=== PATIENT | female | born 1975 | race Caucasian/White ===

== ENCOUNTER → 2023-09-11 | Outpatient (CLI) | payer MEDICAID, SELFPAY ==
[2023-09-11 15:23] LABS: Absolute Lymphocyte Count 1.58 X10^3/uL (0.83-4.51); Absolute Neutrophil Count 8.2 X10^3/uL (2.0-7.7); Basophil# 0.05 X10^3/uL; Basophil% 0.5 % (0-1); Eosinophil# 0.11 X10^3/uL; Eosinophils% 1.1 % (0-5); Hematocrit 42.7 % (37-47); Lymphocyte # 1.58 X10^3/ul (0.83-4.51); Lymphocyte % 15.1 % (19-41); Mean Corp Hgb Conc 32.8 g/dL (32-36); Mean Corpuscular Hgb 30.2 pg (27.0-32.0); Mean Platelet Vol. 10.5 fl (6.2-12.0); Monocyte% 4.8 % (0-10); NRBC Flagged by Analyzer 0 % (0-5); Neutrophil # 8.17 X10^3/uL (2.7-7.7); Neutrophil % 78.1 % (47-70); Platelet Count 281 K/mm3 (150-450); RBC Distribution Width CV 13.2 % (11.6-14.6); Red Blood Count 4.64 M/mm3 (4.2-5.4); White Blood Count 10.5 K/mm3 (4.4-11.0)
[2023-09-11 15:43] LABS: Hemoglobin A1c 5.6 % (3.8-5.6)
[2023-09-11 15:48] LABS: Microalbumin,Random Urine 7.1 mg/L (NO RANGE EST.); Microalbumin:Creatinine Ratio 5.1 mg/g CRE (<30 mg/g CRE)
[2023-09-11 15:48] LABS: ALB/GLOB Ratio 0.9 RATIO (0.9-2.4); AST(SGOT) 19 U/L (15-37); Alanine Aminotransfer ALT/SGPT 21 U/L (13-56); Albumin, Serum 3.4 g/dL (3.2-5.0); Alkaline Phosphatase 87 U/L (45-117); Anion Gap 3 (5-15); BUN 12 mg/dL (7-18); BUN/Creat Ratio 13.6 RATIO (10-20); Chloride 107 mmol/L (98-107); Cholesterol 175 mg/dL (200); Creatinine, Serum 0.88 mg/dL (0.55-1.02); EST Glomerular Filtration Rate 72 mL/min (>60); Est Glom Filt Rate - Afr Amer 87 mL/min (>60); Globulin 3.7 g/dL (2.2-4.2); Glucose 110 mg/dL (74-106); High Density Lipoprotein 39 mg/dL; Potassium 4.4 mmol/L (3.5-5.1); Protein, Total 7.1 g/dL (6.4-8.2); Sodium Level 138 mmol/L (136-145); Triglycerides 233 mg/dL; Very Low Density Lipoprotein 47 mg/dL (5-40)
== END | disposition home or self-care (01) ==
LOC: BIMLAB 12:01
PROVIDERS: PCP Internal Medicine; Referring Provider Internal Medicine; Visit Provider Internal Medicine
DX: E11.9 Type 2 diabetes mellitus without complications (principal)
CPT/HCPCS: 36415; 80053; 80061; 82043; 82570; 83036; 85025

== ENCOUNTER → 2023-10-10 | Outpatient (CLI) | payer MEDICAID, SELFPAY | END | disposition home or self-care (01) | LOC: MRI 10:13 | PROVIDERS: PCP Internal Medicine; Referring Provider Orthopaedic Surgery Orthopaedic Surgery of the Spine; Visit Provider Orthopaedic Surgery Orthopaedic Surgery of the Spine | DX: Z00.00 Encounter for general adult medical examination without abnormal findings (principal) ==

== ENCOUNTER → 2023-10-24 | Outpatient (CLI) | payer MEDICAID, SELFPAY ==
[2023-10-24 13:56] LABS: Amphetamine Urine VISTA POSITIVE (<1000 ng/mL); Barbiturate Urine VISTA NEGATIVE (< 200 ng/mL); Benzodiazepine Urine VISTA NEGATIVE (< 200 ng/mL); Cocaine Urine VISTA NEGATIVE (< 300 ng/mL); Ecstacy Urine VISTA POSITIVE (< 500 ng/mL); Methadone Urine VISTA NEGATIVE (< 300 ng/mL); PCP Urine VISTA NEGATIVE (< 25 ng/mL); THC Urine VISTA POSITIVE (< 50 ng/mL); Vista UDS pH Range 6
== END | disposition home or self-care (01) ==
LOC: LAB 12:20
PROVIDERS: PCP Internal Medicine; Referring Provider Anesthesiology; Visit Provider Anesthesiology
DX: F11.20 Opioid dependence, uncomplicated (principal)
CPT/HCPCS: 80307

== ENCOUNTER 2023-10-31 09:00 | Outpatient (RCR) | payer MEDICAID, SELFPAY ==
--- NOTE | 2023-09-29 11:07 | HP.PTEVAL_ITS ---
Patient's Visit Information Visit Information Visit Information: THONG NEFF is a 48 year old F referred to Physical Therapy by Dr. Riley Mobley MD with a diagnosis of LUMBAR RADICULOATHY. Date of Evaluation: 09/29/23 Physical Therapist: Prem Fisher, PT, Cert MDT, OCS Visit Plan Frequency: 2x /Week Duration: 4 Weeks Plan: PT INTERVENTIONS AQUATIC THERAPY DLS ,POSTURAL EX'S ,LE FLEXABILITY ,BLE STRENGTHENING AND ACTIVITY MODIFICATION Subjective Subjective: This 48 y/o female presents to physical therapy with lumbar radiculopathy. Patient has h/o lumbar surgery 2019 and cervical fusion 2018. Most recently developed right lumbar and radiates to buttock to hamstring. Described as ache shooting pain. Seen DR Mobley recommended PT ,pain management and MRI. Patient had x-rays showed DDD. Aggravating factors bending ,lifting ,sitting , standing extended periods ,walking. Alleviating sitting with ice in recliner. Denies paresthesia/tingling -. Coughing/sneezing + pain. Bowel/bladder -.Pain affects sleeping. Patient has had PT in past didn't helped but pool was the best. Seen chiropractor for mid back. Patient symptoms affects QOL and func tion and ADLS . Patient condition affects QOL and function. SOCAL: single VOCATION: disablity Pain Right Back: Pain Intensity (Out of 10): 7 Pain Intensity Range: 10 Right Lower Extremity: Pain Intensity (Out of 10): 4 Pain Intensity Range: 10 Objective Objective: POSTURE: mild forward posture rounded shoulders head forward PALAPTION: tender LS/SI NEURO: c/o paresthesia/tingling ,reflexes L3-4,L4-5,L5-S1 2/2 SYMMETRIES: align FLEXABILITY: hamstrings min tight MMT: quads/hams 4/5 ,hip flexion 4-/5 ,ankle 4/5 LUMBAR ROM: flexion mod loss pain ,extension severe loss ,side glides min loss Special Tests L/S Slump test left side: Negative L/S Slump test right side: Negative L/S Left Straight Leg Raise: Negative L/S Right Straight Leg Raise: Negative Balance/Special Test Scores Oswestry Low Back Score: 23 Goals Goal 1:: Patient to be I with Aquatic program for lumbar spine Goal Time Frame: 4-6 Weeks Goal 2:: Patient to demonstrate 50% improvement with improved function and less pain Goal Time Frame: 4-6 Weeks Goal 3:: Patient to improve lumbar ROM for function of recovery to put on shoes and ADLS Goal Time Frame: 4-6 Weeks Goal 4:: Patient to improve back oswestry by 5 points to improve QOL and function Goal Time Frame: 4-6 Weeks Goal 5:: Patient be able to perform ADLS and housework tasks at home with min limitations Goal Time Frame: 4-6 Weeks Rehabilitation Potential Physical Therapy Diagnosis: This patient has lumbar pain with h/o surgery with possible foraminal stenosis vs disc with pain with motion testing and positioning , walking/standing affects ADLS and housework tasks thus benefit from skilled PT Rehabilitation Potential: Good Anticipated Interventions Patient/Client Instruction: Educate patient on: Condition and Plan of Care For the Purpose of:: To decrease pain, To increase ROM, To increase oxygenation perfusion, To improve ability to perform ADL's, To increase tolerance to activity/condition/position, To improve ability of physical actions for home/community/work/leisure, To improve health of tissue, To decrease soft tissue restriction, To increase flexibility/ROM, To reduce risk of recurrence and To prevent re-injury Therapeutic Exercise to Include: Strength training, Body mechanics, Postural training, Flexibilty training, In an aquatic setting and Dynamic Lumbar Stabilization For the Purpose of:: To decrease pain, To increase ROM, To improve muscle performance and motor function, To increase tolerance to activity/condition/position, To decrease level of supervision to perform tasks, To improve health of tissue, To decrease soft tissue restriction, To increase flexibility/ROM and To prevent re-injury Text: Thank you for the opportunity to evaluate your patient. For Medicare and Medicare HMO plans, please review the plan of care and approve it. It will need to be FAXED BACK to us at [phone] for Medicare purposes. For Medicare only, by signing this I certify the plan of care. Please let me know if there are questions or concerns regarding this plan of care. Physician Signatu re: Date:
--- NOTE | 2023-10-10 10:19 | MRI_ITS ---
EXAM: MR LUMBAR SPINE WITHOUT INTRAVENOUS CONTRAST CLINICAL INDICATION: pain TECHNIQUE: Multiplanar and multisequence MR images of the lumbar spine without intravenous contrast. COMPARISON: Lumbar radiographs 09/21/2023 FINDINGS: VERTEBRAE: Alignment of the lumbar vertebral bodies is normal. Normal vertebral body height. No bone marrow edema. Surgical fixation of the dorsal spinous processes of L3 and L4. SPINAL CORD: Normal. Normal position and signal intensity of the conus medullaris. SOFT TISSUES: Normal. DISCS/SPINAL CANAL/NEURAL FORAMINA: L1-L2: Normal. Normal disc height and morphology. Normal spinal canal and lateral recesses. Normal neuroforamina. L2-L3: Normal. Normal disc height and morphology. Normal spinal canal and lateral recesses. Normal neuroforamina. L3-L4: Moderate disc space narrowing and desiccation. Left central disc herniation causes mild spinal stenosis and mild narrowing of the right lateral recess. Intact neural foramina. L4-L5: Prominent disc space loss. Broad-based disc protrusion and facet arthropathy noted without significant narrowing of the spinal canal or neural foramina. L5-S1: Moderate disc space narrowing. Broad-based disc protrusion and facet arthropathy result in mild narrowing of the neural foramina bilaterally. No spinal stenosis. MRI/Spine Lumbar (Routine) IMPRESSION: 1. Disc degeneration at L3-4, L4-5 and L5-S1. 2. Mild L3-4 spinal and right lateral recess stenosis. 3. L5-S1 neural foraminal narrowing. Electronically Signed: Nj Prasad MD at 12:24 EDT ,
--- NOTE | 2024-01-05 13:28 | HP.PTDCSUM ---
Discharge Summary D/C summary: It has been my pleasure to treat THONG NEFF referred by Dr. Riley Mobley MD, with the diagnosis of LUMBAR RADICULOATHY for a total of 10 visit(s). Discharge Date: Please see the following information for a summary of their discharge status. Subjective Subjective: Patient has MRI showed L3-L4: Moderate disc space narrowing and desiccation. Left central disc herniation causes mild spinal stenosis and mild narrowing of the right lateral recess. Intact neural foramina. L4-L5: Prominent disc space loss. Broad-based disc protrusion and facet arthropathy noted without significant narrowing of the spinal canal or neural foramina.L5-S1: Moderate disc space narrowing. Broad-based disc protrusion and facet arthropathy result in mild narrowing of the neural foramina bilaterally. No spinal stenosis. Plan for epidural injections Pain Right Back: Pain Intensity (Out of 10): 6 Right Lower Extremity: Pain Intensity (Out of 10): 6 Left Back: Pain Intensity (Out of 10): 6 Overall Improvement % Improvement: 10 Objective Objective/Function: OSTURE: mild forward posture rounded shoulders head forward PALAPTION: tender LS/SI NEURO: c/o paresthesia/tingling ,reflexes L3-4,L4-5,L5-S1 2/2 SYMMETRIES: align FLEXABILITY: hamstrings min tight MMT: quads/hams 4/5 ,hip flexion 4-/5 ,ankle 4/5 LUMBAR ROM: flexion mod loss pain ,extension MOD loss ,side glides min loss Goals Goal 1:: Patient to be I with Aquatic program for lumbar spine Goal 2:: Patient to demonstrate 50% improvement with improved function and less pain Goal 3:: Patient to improve lumbar ROM for function of recovery to put on shoes and ADLS Goal 4:: Patient to improve back oswestry by 5 points to improve QOL and function Goal 5:: Patient be able to perform ADLS and housework tasks at home with min limitations Plan Plan: PLAN FOR EPIDURAL INJECTION D/C Information d/c sentence: If there are questions or concerns regarding this patient's physical therapy, please feel free to call me at [phone]. Thank you for the referral of this patient. Sincerely, Prem Fisher, PT, Cert MDT, OCS Balance/Gait/Functional tests Balance/Special Test Scores Oswestry Low Back Score: 23 Improvement % Improvement: 10
== END 2023-10-31 19:00 | disposition home or self-care (01) ==
LOC: PT 09:00
PROVIDERS: PCP Internal Medicine; Referring Provider Orthopaedic Surgery Orthopaedic Surgery of the Spine; Visit Provider Orthopaedic Surgery Orthopaedic Surgery of the Spine
DX: M54.16 Radiculopathy, lumbar region (principal)
CPT/HCPCS: 72148; 97113; 97162; 97530

== ENCOUNTER → 2023-12-06 | Outpatient (CLI) | payer MEDICAID, SELFPAY ==
--- NOTE | 2023-12-06 14:23 | NEURO_ITS ---
NCS and/or EMG Patient Report Ordering Doctor: Kevyn Merino DATE OF SERVICE: 12/06/23 Caridad presents for electrodiagnostic testing of the right upper limb. She reports numbness and tingling in the right hand. Electrodiagnostic findings: Right median motor nerve demonstrates prolonged latency with normal amplitude and conduction velocity. Right ulnar motor responses within normal limits, including conduction across the elbow. Prolonged right median sensory latency at the wrist. Normal ulnar and radial sensory responses. Needle EMG testing was performed in the right upper limb. All muscles tested, including cervical paraspinals, showed no evidence of denervation with normal motor unit action potentials. Electrodiagnostic impression: This is an abnormal study in the right upper limb 1. Electrodiagnostic findings suggestive of right-sided median mononeuropathy. This consistent with a mild right carpal tunnel syndrome. 2. There is no electrodiagnostic evidence for ulnar neuropathy, including cubital tunnel syndrome. 3. There is no electrodiagnostic evidence is noted for cervical radiculopathy Multi Select Codes Neurology Neurology Interp Codes: 86168-81 Musc test done w/n test comp (interp) and 959 10-26 Nrv cndj test 7-8 studies (interp)
--- NOTE | 2023-12-06 14:25 | RAD_ITS ---
EXAM: XR CERVICAL SPINE, 4 OR 5 VIEWS CLINICAL INDICATION: CERVICAL SPONDYLOSIS TECHNIQUE: Frontal, lateral and bilateral oblique views of the cervical spine. COMPARISON: No relevant prior studies available. FINDINGS: VERTEBRAE: Hardware from anterior fusion C5-6. Preserved vertebral body height. No acute fracture. No spondylolisthesis. Preservation of the normal cervical lordosis. No significant facet arthropathy. DISC SPACES: See above. SOFT TISSUES: Unremarkable. No prevertebral soft tissue widening. LUNG APICES: Clear. RAD/Cerv Spine 4 or 5 Views IMPRESSION: No acute osseous abnormalities of the cervical spine. There is an anterior fusion at C5-6. Electronically Signed: Hood Raya MD at 22:31 EDT ,
== END | disposition home or self-care (01) ==
PROVIDERS: PCP Internal Medicine; Referring Provider Anesthesiology; Visit Provider Anesthesiology
DX: G56.21 Lesion of ulnar nerve, right upper limb (principal); G56.01 Carpal tunnel syndrome, right upper limb
CPT/HCPCS: 72050; 95886; 95910

== ENCOUNTER 2024-02-13 02:49 | Emergency (ER) | payer MEDICAID, SELFPAY ==
[2024-02-13 02:53] VITALS: BP 119/72; PULSE 93; RESP 16; TEMP 37.3; O2SAT 95; BMI 29.0
--- NOTE | 2024-02-13 02:59 | EDS_ITS ---
HPI History of Present Illness Chief Complaint: Abscess Informant: patient Onset/Context/Timing Onset: Days (2) Context: Gradual Onset Timing: Continuous Quality: Burning Location: Right axilla Worsened by: Movement Relieved by: Warm compresses Narrative Narrative: Patient presents with abscess to her right axilla that has been getting worse over the last 2 days. Patient states it is gradually gotten worse. Patient states she noted a small pustule in her right axilla and she popped it. Patient states that since that time the redness and swelling has gotten worse. Patient states her pain has gotten progressively worse. Patient states her pain is worse with movement of her right arm. Patient states it gets better with warm compresses. Patient admits to a low-grade fever of 99 at home. Patient admits to some nausea but denies any vomiting. [facility] Medical History Bipolar disorder Carpal tunnel syndrome of right wrist Spinal stenosis Lumbar radiculopathy Type 2 diabetes mellitus Drug abuse IBS (irritable bowel syndrome) Tuberculosis Skin cancer Osteoarthritis H/O gastroesophageal reflux (GERD) Diabetes Breast lump Arthritis Anemia Chronic headaches Home Medications ?Medication ?Instructions ?Recorded ?Last Taken ?Type cholecalciferol (vitamin D3) 50 50 mcg PO DAILY 09/11/23 Unknown History mcg (2,000 unit) capsule cimetidine 300 mg tablet 300 mg PO BID 09/11/23 Unknown History clobetasol 0.05 % topical cream 1 applic topical DAILY 09/11/23 Unknown History clonazepam 1 mg tablet 1 mg PO 4X/DAY PRN anxiety 09/11/23 Unknown History flash glucose scanning reader 09/11/23 Unknown History (FreeStyle Emmanuel 14 Day [place]) hydroxyzine HCl 25 mg tablet 25 mg PO TID PRN itching 09/11/23 Unknown History lumateperone 21 mg capsule 21 mg PO DAILY 09/11/23 Unknown History (Caplyta) metformin 500 mg tablet 500 mg PO BID 09/11/23 Unknown History pregabalin 150 mg capsule 150 mg PO TID 09/11/23 Unknown History vortioxetine 20 mg tablet 20 mg PO QDAY 09/11/23 Unknown History (Trintellix) atorvastatin 10 mg tablet 10 mg PO QDAY #90 tabs 09/25/23 Unknown Rx cetirizine 10 mg capsule (All Day 10 mg PO DAILY PRN allergy 10/23/23 Unknown Rx Allergy (cetirizine)) symptoms #90 caps pantoprazole 40 mg tablet,delayed 40 mg PO QDAY #90 tabs 11/15/23 Unknown Rx release flash glucose sensor (FreeStyle #1 ea 11/16/23 Unknown Rx Emmanuel 2 Sensor kit) estradiol 1 mg tablet 1 mg PO QDAY #30 tabs 12/25/23 Unknown Rx docusate sodium 100 mg capsule 100 mg PO BID #60 caps 01/19/24 Unknown Rx arm brace (Wrist Brace) #2 ea 01/24/24 Unknown Rx amoxicillin 875 mg-potassium 875 mg PO Q12H #20 TABLETS 02/13/24 Unknown Rx clavulanate 125 mg tablet aripiprazole 5 mg tablet (Abilify) 5 mg PO DAILY 02/13/24 Unknown History Allergy/AdvReac Type Severity Reaction Status Date / Time No Known Allergies Allergy Verified 02/13/24 02:49 Surgical History Hx of lumbosacral spine surgery H/O: hysterectomy S/P cervical spinal fusion H/O adenoidectomy History of tonsillectomy Social History (Updated 02/13/24 @ 03:[address] Oumar Haynes DO) adopted: No household members: spouse number of children: 2 current occupational status: disabled pets and animals: Yes (3) pets and animals: cat(s) Smoking Status: Current every day smoker tobacco type: cigarettes Tobacco: How many years used: 45 quit status: has quit before alcohol intake: current alcohol intake frequency: a few times a month substance use type: marijuana and methamphetamine diet: other caffeine: Yes (5) Type: carbonated beverages frequency: does not exercise seatbelt use: always do you feel safe at home: Yes ROS ROS ED Constitutional Constitutional ED: Denies chills or fever(s) Eyes Eyes: Denies blurry vision or change in vision ENT ENT ED: Denies rhinorrhea or sore throat Cardiovascular Cardiovascular: Denies chest pain or palpitations Respiratory/Chest Respiratory/Chest: Denies cough or dyspnea Gastrointestinal Gastrointestinal: Reports nausea; Denies vomiting Genitourinary Genitourinary ED: Denies dysuria or hematuria Musculoskeletal Musculoskeletal: Reports back pain and neck pain Integumentary Reports abscess; Denies rash Neurologic Neurologic: Denies headache(s) or weakness Allergic/Immunologic Allergic/Immunologic ED: Denies mouth swelling or urticaria EXAM Physical Exam Const Vital Signs: 02/13/24 02:53 02/13/24 04:49 Temperature 99.2 F H Temperature Source Oral Pulse Rate 93 86 Respiratory Rate 16 16 Blood Pressure 119/72 106/64 Blood Pressure Mean 87 78 Pulse Ox 95 Oxygen Delivery Method Room Air Positive well nourished and well developed General Appearance ED: well developed and NAD HEENT Reports moist mucous membranes Neck supple and no JVD Neuro oriented x3, CN's II-XII intact bilaterally and no sensory deficits noted Sensorium / Orientation: alert Motor Exam: strength 5/5 throughout Psych mental status grossly normal Skin Skin Narrative: There is a abscess in the right axilla. There is mild fluctuance. There is significant surrounding cellulitis with warmth and erythema. There is no discharge or drainage noted. There is tenderness over the area. MDM MDM MDM Narrative Medical decision making narrative: Differential diagnosis includes abscess and cellulitis. CBC will be obtained to assess for leukocytosis and anemia. Basic metabolic profile will be obtained to assess for electrolyte abnormality and renal function. Lab Data Attestation: I reviewed the patient's lab results. Lab results narrative: CBC was reviewed. There is a leukocytosis of 17.8. The remainder is within normal limits. Basic metabolic profile was reviewed. Glucose was mildly elevated 173. Sodium was slightly low at 133. The remainder is within normal limits. Labs: Laboratory Results - last 24 hr 02/13/24 03:45 WBC 17.8 H RBC 4.38 Hgb 13.1 Hct 39.3 MCV 89.7 MCH 29.9 MCHC 33.3 RDW Std Deviation 43.1 RDW Coeff of Dali 13.1 Plt Count 270 MPV 9.1 Immature Gran % (Auto) 0.500 Neut % (Auto) 81.8 H Lymph % (Auto) 10.5 L Dare % (Auto) 6.0 Eos % (Auto) 0.8 Baso % (Auto) 0.4 Absolute Neuts (auto) 14.6 H Absolute Lymphs (auto) 1.87 Nucleated RBC % 0 Sodium 133 L Potassium 4.1 Chloride 100 Carbon Dioxide 29.0 Anion Gap 4 L BUN 8 Creatinine 0.79 Estim Creat Clear Calc 85.51 Est GFR (MDRD) Af Amer 99 Est GFR (MDRD) Non-Af 82 BUN/Creatinine Ratio 10.2 Glucose 173 H Calcium 9.2 Treatment and Re-Evaluation :: Smoking cessation was discussed. The patient was advised of the need for incision and drainage. Patient was agreeable with this. Patient was given a dose of Unasyn here in the emergency department. The area was cleaned with chlorhexidine prep. The area was anesthetized with 1% plain lidocaine locally. A small cruciate incision was made using an 11 blade scalpel. A moderate amount of purulent drainage was expressed. The wound was left open. Iodoform gauze was placed in the wound. Bacitracin dressing was applied. Patient tolerated the procedure well. Patient was instructed to use warm compresses. Patient was given a prescription for Augmentin. Patient was instructed to take Tylenol or ibuprofen as needed for pain. Patient was instructed to follow-up with her primary care physician in 5 to 7 days. Patient understood and was agreeable with the plan. All questions were answered. Discharge Plan Triage Chief Complaint: Abscess ED Provider: Oumar Haynes Dx/Rx/DC Orders Clinical Impression: Abscess of right axilla, Cellulitis of right axilla, Type 2 diabetes mellitus Instructions: ED Abscess Incision And Drainage, ED Cellulitis Prescriptions: New amoxicillin-pot clavulanate 875-125 mg tablet 875 mg PO Q12H Qty: 20 0RF No Action metformin 500 mg tablet 500 mg PO BID pregabalin 150 mg capsule 150 mg PO TID clonazepam 1 mg tablet 1 mg PO 4X/DAY PRN (Reason: anxiety) cimetidine 300 mg tablet 300 mg PO BID Trintellix 20 mg tablet 20 mg PO QDAY cholecalciferol (vitamin D3) 50 mcg (2,000 unit) capsule 50 mcg PO DAILY clobetasol 0.05 % cream 1 applic topical DAILY Caplyta 21 mg capsule 21 mg PO DAILY (DME) Rupali Benitez 14 Day [place] Misc See Rx Instructions .Route Rx Instructions: As directed hydroxyzine HCl 25 mg tablet 25 mg PO TID PRN (Reason: itching) pantoprazole 40 mg tablet,delayed release (DR/EC) 40 mg PO QDAY Qty: 90 2RF aripiprazole [Abilify] 5 mg tablet 5 mg PO DAILY atorvastatin 10 mg tablet 10 mg PO QDAY Qty: 90 1RF All Day Allergy (cetirizine) 10 mg capsule 10 mg PO DAILY PRN (Reason: allergy symptoms) Qty: 90 1RF (DME) FreeStyle Emmanuel 2 Sensor Kit See Rx Instructions .Route Qty: 1 6RF Rx Instructions: As directed estradiol 1 mg tablet 1 mg PO QDAY Qty: 30 1RF docusate sodium 100 mg capsule 100 mg PO BID Qty: 60 0RF (DME) Wrist Brace Misc See Rx Instructions .Route Qty: 2 2RF Rx Instructions: As directed Primary Care Provider: Yanira Souza Referrals: Yanira Souza MD [Primary Care Provider] - 3-5 Days Print Language: Slovenian Disposition Disposition: Home, Self Care
[2024-02-13 03:53] LABS: Absolute Lymphocyte Count 1.87 X10^3/uL (0.83-4.51); Absolute Neutrophil Count 14.6 X10^3/uL (2.0-7.7); Basophil# 0.07 X10^3/uL; Basophil% 0.4 % (0-1); Eosinophil# 0.15 X10^3/uL; Eosinophils% 0.8 % (0-5); Hematocrit 39.3 % (37-47); Hemoglobin 13.1 g/dL (12.0-15.0); Lymphocyte # 1.87 X10^3/ul (0.83-4.51); Lymphocyte % 10.5 % (19-41); Mean Corp Hgb Conc 33.3 g/dL (32-36); Mean Corpuscular Hgb 29.9 pg (27.0-32.0); Mean Corpuscular Volume 89.7 fL (81-99); Mean Platelet Vol. 9.1 fl (6.2-12.0); Monocyte# 1.07 X10^3/uL; NRBC Flagged by Analyzer 0 % (0-5); Neutrophil # 14.56 X10^3/uL (2.7-7.7); Neutrophil % 81.8 % (47-70); Platelet Count 270 K/mm3 (150-450); RBC Distribution Width CV 13.1 % (11.6-14.6); RBC Distribution Width SD 43.1 fl (35.1-43.9); Red Blood Count 4.38 M/mm3 (4.2-5.4); White Blood Count 17.8 K/mm3 (4.4-11.0)
[2024-02-13] MEDS: Lidocaine 1% (20 ml mdv) 20 ML Vial INFILT (03:59)
[2024-02-13] MEDS: Ondansetron 4 MG/2 ML Vial IV (04:00)
[2024-02-13] MEDS: Ampicillin/Sulbactam 3 GM in 0.9% Normal Saline (100mL MB+) 100 ML IV (04:01)
[2024-02-13] MEDS: Morphine 4 MG/ML Syringe IV (04:01)
[2024-02-13 04:08] LABS: Anion Gap 4 (5-15); BUN 8 mg/dL (7-18); BUN/Creat Ratio 10.2 RATIO (10-20); Calcium,Total 9.2 mg/dL (8.5-10.1); Chloride 100 mmol/L (98-107); Creatinine, Serum 0.79 mg/dL (0.55-1.02); EST Glomerular Filtration Rate 82 mL/min (>60); Est Glom Filt Rate - Afr Amer 99 mL/min (>60); Estimated Creatinine Clearance 85.51 ml/min; Glucose 173 mg/dL (74-106); Potassium 4.1 mmol/L (3.5-5.1); Sodium Level 133 mmol/L (136-145)
[2024-02-13] MEDS: LORazepam 2 MG/ML Syringe 0.5 MG IV (04:47)
[2024-02-13 04:49] VITALS: BP 106/64; PULSE 86; RESP 16
[2024-02-13 05:53] VITALS: BP 108/61; PULSE 82; RESP 18; TEMP 36.3; O2SAT 96
== END 2024-02-13 05:54 | disposition home or self-care (01) ==
PROVIDERS: Emergency Provider Emergency Medicine; PCP Internal Medicine; Visit Provider Emergency Medicine
DX: E11.9 Type 2 diabetes mellitus without complications (principal); L02.411 Cutaneous abscess of right axilla; F17.210 Nicotine dependence, cigarettes, uncomplicated; L03.111 Cellulitis of right axilla; Z79.899 Other long term (current) drug therapy
CPT/HCPCS: 10060; 80048; 85025; 96365; 96375; 99282; J7050; A4216; J0295; J2405

== ENCOUNTER → 2024-02-14 | Outpatient (CLI) | payer MEDICAID, SELFPAY | END | disposition home or self-care (01) | LOC: LABSPEC 15:12 | PROVIDERS: PCP Internal Medicine; Referring Provider Physician Assistant; Visit Provider Physician Assistant | DX: L02.411 Cutaneous abscess of right axilla (principal); L03.111 Cellulitis of right axilla | CPT/HCPCS: 87070; 87077; 87186; 87205 ==

== ENCOUNTER 2024-02-19 10:09 | Emergency (ER) | payer MEDICAID, SELFPAY ==
[2024-02-19 10:09] VITALS: BP 128/84; PULSE 67; RESP 16; TEMP 35.9; O2SAT 99; BMI 32.0
[2024-02-19 10:14] VITALS: BP 121/79; PULSE 61; PULSE 70; RESP 100; RESP 18; TEMP 36.8; O2SAT 100
--- NOTE | 2024-02-19 10:29 | ED.RN ---
Dr. Davis bedside
--- NOTE | 2024-02-19 10:34 | EX.ED.DYSGE1 ---
HPI History of Present Illness Chief Complaint: Abscess Informant: patient Narrative Narrative: 56-year-old female developed a tender swollen area/abscess in right axilla, she was seen here in ER about a week ago and had incision and drainage and was placed on Augmentin. It has not gotten better. She states she does not think it is necessarily worse. She has seen someone at urgent care and the wound center today, she was sent here. They are concerned it is either recurrent or incompletely drained. She only has 3 days left of the Augmentin. She denies systemic symptoms. She is a diabetic. She states it was continuing to drain until about 3 days ago when it closed up, she states that the wound center today they put a wick in the small wound. She did not have repeat incision and drainage. [facility] Medical History Bipolar disorder Carpal tunnel syndrome of right wrist Spinal stenosis Lumbar radiculopathy Type 2 diabetes mellitus Drug abuse IBS (irritable bowel syndrome) Tuberculosis Skin cancer Osteoarthritis H/O gastroesophageal reflux (GERD) Diabetes Breast lump Arthritis Anemia Chronic headaches Home Medications ?Medication ?Instructions ?Recorded ?Last Taken ?Type cholecalciferol (vitamin D3) 50 50 mcg PO DAILY 09/11/23 Unknown History mcg (2,000 unit) capsule clobetasol 0.05 % topical cream 1 applic topical DAILY 09/11/23 Unknown History clonazepam 1 mg tablet 1 mg PO 4X/DAY PRN anxiety 09/11/23 Unknown History flash glucose scanning reader 09/11/23 Unknown History (FreeStyle Emmanuel 14 Day [place]) hydroxyzine HCl 25 mg tablet 25 mg PO TID PRN itching 09/11/23 Unknown History lumateperone 21 mg capsule 21 mg PO DAILY 09/11/23 Unknown History (Caplyta) metformin 500 mg tablet 500 mg PO BID 09/11/23 Unknown History pregabalin 150 mg capsule 150 mg PO TID 09/11/23 Unknown History vortioxetine 20 mg tablet 20 mg PO QDAY 09/11/23 Unknown History (Trintellix) atorvastatin 10 mg tablet 10 mg PO QDAY #90 tabs 09/25/23 Unknown Rx cetirizine 10 mg capsule (All Day 10 mg PO DAILY PRN allergy 10/23/23 Unknown Rx Allergy (cetirizine)) symptoms #90 caps pantoprazole 40 mg tablet,delayed 40 mg PO QDAY #90 tabs 11/15/23 Unknown Rx release flash glucose sensor (FreeStyle #1 ea 11/16/23 Unknown Rx Emmanuel 2 Sensor kit) estradiol 1 mg tablet 1 mg PO QDAY #30 tabs 12/25/23 Unknown Rx docusate sodium 100 mg capsule 100 mg PO BID #60 caps 01/19/24 Unknown Rx arm brace (Wrist Brace) #2 ea 01/24/24 Unknown Rx aripiprazole 5 mg tablet (Abilify) 5 mg PO DAILY 02/13/24 Unknown History iodoform 1/4 X 5 yard bandage #12 ea 02/13/24 Unknown Rx amoxicillin 875 mg-potassium 1 tab PO Q12.TCU 02/19/24 Unknown History clavulanate 125 mg tablet bupropion HCl 100 mg tablet 100 mg PO BID 02/19/24 Unknown History bupropion HCl 150 mg tablet,12 hr 150 mg PO DAILY 02/19/24 Unknown History sustained-release bupropion HCl 300 mg 24 hr tablet, 300 mg PO DAILY 02/19/24 Unknown History extended release metformin 500 mg tablet 500 mg PO DAILY 02/19/24 Unknown History mirabegron 50 mg tablet,extended 100 mg PO DAILY 02/19/24 Unknown History release 24 hr (Myrbetriq) sulfamethoxazole 800 1 tab PO BID #20 TABLETS 02/19/24 Unknown Rx mg-trimethoprim 160 mg tablet Allergy/AdvReac Type Severity Reaction Status Date / Time No Known Allergies Allergy Verified 02/19/24 10:09 Surgical History Hx of lumbosacral spine surgery H/O: hysterectomy S/P cervical spinal fusion H/O adenoidectomy History of tonsillectomy Social History (Updated 02/13/24 @ 03:[address] Oumar Haynes, DO) adopted: No household members: spouse number of children: 2 current occupational status: disabled pets and animals: Yes (3) pets and animals: cat(s) Smoking Status: Current every day smoker tobacco type: cigarettes Tobacco: How many years used: 45 quit status: has quit before alcohol intake: current alcohol intake frequency: a few times a month substance use type: marijuana and methamphetamine diet: other caffeine: Yes (5) Type: carbonated beverages frequency: does not exercise seatbelt use: always do you feel safe at home: Yes ROS ROS ED Constitutional Constitutional ED: Denies chills or fever(s) Musculoskeletal Musculoskeletal: Reports other Details: Right axilla pain ; Denies neck pain Integumentary Reports abscess; Denies Abrasions, rash or wounds Neurologic Neurologic: Denies paresthesias or weakness EXAM Physical Exam Const Vital Signs: 02/19/24 10:09 02/19/24 10:14 02/19/24 10:14 Temperature 96.7 F L 98.3 F 98.3 F Temperature Source Temporal Oral Oral Pulse Rate 67 61 70 Respiratory Rate 16 18 100 H Blood Pressure 128/84 H 121/79 H 121/79 H Blood Pressure Mean 98 93 93 Pulse Ox 99 100 Oxygen Delivery Method Room Air Room Air Room Air 02/19/24 11:14 02/19/24 12:00 Temperature 98.3 F 98.0 F Temperature Source Oral Temporal Pulse Rate 61 67 Respiratory Rate 16 16 Blood Pressure 119/78 115/70 Blood Pressure Mean 91 85 Pulse Ox 97 95 Oxygen Delivery Method Room Air Room Air Positive well nourished and well developed General Appearance ED: well developed and NAD Neck full ROM and supple Back/Spine normal ROM and normal to inspection Extremity Extremity Narrative: In right axilla, there is erythema and a broad area, it is patchy, and nontender but there are 2 indurated areas that feel like a capsule/abscess both of which are tender, 1 is where there is a wick hanging out there is no active discharge, and the other is a little posterior to this. Neuro oriented x3, no focal motor deficits and no sensory deficits noted Sensorium / Orientation: alert Psych mental status grossly normal and thought process normal Skin no wounds Rashes: no rashes MDM MDM MDM Narrative Medical decision making narrative: As I advised the patient, I recommend repeat incision and drainage. As I advised, we could do a CT scan instead, seeing if she needs an I&D but I think she does, and it could present a false positive because of the possibility of capsules from the abscess has been there whether or not there is pus or not, may not be detectable on CT so I recommend I&D she is amenable to that. Abscess incision and drainage was performed, it was extensive. See the procedure note. There is no purulent discharge expressed, but opening the area and having her continue to do packing changes which she is wanting to do with her significant other on her own, this will likely get better from here. It did not seem so deep that she requires a surgical consult or a CT after the procedure. She was given supplies, I reviewed her microbiology from the initial culture, and I am going to change her antibiotic to Bactrim to which the Staph aureus is sensitive. Advised to follow-up she is comfortable with that plan we discussed reasons to return. Procedures Other Procedures Procedure(s): Complex abscess incision and drainage, right axilla: After informed consent from the patient and pretreating her with an oxycodone her request, the right axilla was prepped and draped in sterile fashion with chlorhexidine, locally anesthetized with 6 cc of plain 1% lidocaine, and I made 2 different incisions because they seem to be relatively far apart from each other, about 3 to 4 cm, potentially involving separate pockets rather than when continuously infected area. One of them was made at the present wound. This was with a 15 blade. After doing this, I deloculated deeply with hemostats through both incisions until the area is more confluent. There was no purulent discharge expressible, there was only bleeding. I irrigated the area thoroughly with about 50 cc of sterile saline total, and packed both areas with sterile strip gauze half-inch. Tolerated well no complications. Discharge Plan Triage Chief Complaint: Abscess ED Provider: Bebeto Davis Dx/Rx/DC Orders Clinical Impression: Abscess of right axilla Instructions: ED Abscess Incision And Drainage Prescriptions: New sulfamethoxazole-trimethoprim 800-160 mg tablet 1 tab PO BID Qty: 20 0RF No Action metformin 500 mg tablet 500 mg PO BID pregabalin 150 mg capsule 150 mg PO TID clonazepam 1 mg tablet 1 mg PO 4X/DAY PRN (Reason: anxiety) Trintellix 20 mg tablet 20 mg PO QDAY cholecalciferol (vitamin D3) 50 mcg (2,000 unit) capsule 50 mcg PO DAILY clobetasol 0.05 % cream 1 applic topical DAILY Caplyta 21 mg capsule 21 mg PO DAILY (DME) Rupali Emmanuel 14 Day [place] Misc See Rx Instructions .Route Rx Instructions: As directed hydroxyzine HCl 25 mg tablet 25 mg PO TID PRN (Reason: itching) pantoprazole 40 mg tablet,delayed release (DR/EC) 40 mg PO QDAY Qty: 90 2RF aripiprazole [Abilify] 5 mg tablet 5 mg PO DAILY amoxicillin-pot clavulanate 875-125 mg tablet 1 tab PO Q12.TCU mirabegron [Myrbetriq] 50 mg tablet extended release 24 hr 100 mg PO DAILY bupropion HCl 100 mg tablet 100 mg PO BID bupropion HCl 150 mg tablet sustained-release 12 hr 150 mg PO DAILY bupropion HCl 300 mg tablet extended release 24 hr 300 mg PO DAILY metformin 500 mg tablet 500 mg PO DAILY atorvastatin 10 mg tablet 10 mg PO QDAY Qty: 90 1RF All Day Allergy (cetirizine) 10 mg capsule 10 mg PO DAILY PRN (Reason: allergy symptoms) Qty: 90 1RF (DME) FreeStyle Emmanuel 2 Sensor Kit See Rx Instructions .Route Qty: 1 6RF Rx Instructions: As directed estradiol 1 mg tablet 1 mg PO QDAY Qty: 30 1RF docusate sodium 100 mg capsule 100 mg PO BID Qty: 60 0RF (DME) Wrist Brace Misc See Rx Instructions .Route Qty: 2 2RF Rx Instructions: As directed (DME) iodoform 1/4 X 5 -yard bandage See Rx Instructions .Route Qty: 12 1RF Rx Instructions: As directed Primary Care Provider: Lesley Crespo Referrals: John Cohen MD [Med Staff - Active Staff] - 3-5 Days if not improving Lesley Crespo MD [Primary Care Provider] - Activity Restrictions/Additional Instructions: Try to leave packing intact for 48 hours and then remove and discard. If it falls out earlier than that, do not worry about it, just continue dressing changes. If you are able to do dressing changes with strip gauze feel free to do so until there is no more discharge. If there is any water that gets into the area after a shower or what not, you may gently apply pressure to the surrounding area to express it prior to a new dressing change. Antibiotic ointment on the area with these dressing changes okay as well. If you are concerned about it recurring or getting worse, return to the ER for reevaluation. Print Language: [place] Disposition Disposition: Home, Self Care
[2024-02-19] MEDS: Lidocaine 1% (20 ml mdv) 20 ML Vial INFILT (10:42)
[2024-02-19] MEDS: oxyCODONE 5 MG Tablet PO (10:42)
[2024-02-19 11:14] VITALS: BP 119/78; PULSE 61; RESP 16; TEMP 36.8; O2SAT 97
[2024-02-19 12:00] VITALS: BP 115/70; PULSE 67; RESP 16; TEMP 36.7; O2SAT 95
[2024-02-19 13:57] VITALS: BP 138/76; PULSE 64; RESP 18; TEMP 36.4; O2SAT 99
== END 2024-02-19 13:59 | disposition home or self-care (01) ==
PROVIDERS: Emergency Provider Emergency Medicine; PCP Family Medicine; Visit Provider Emergency Medicine
DX: L02.411 Cutaneous abscess of right axilla (principal); F31.9 Bipolar disorder, unspecified; E11.9 Type 2 diabetes mellitus without complications; F17.210 Nicotine dependence, cigarettes, uncomplicated; Z79.84 Long term (current) use of oral hypoglycemic drugs; Z90.710 Acquired absence of both cervix and uterus; S41.101A Unspecified open wound of right upper arm, initial encounter; L03.111 Cellulitis of right axilla; X58.XXXA Exposure to other specified factors, initial encounter; T81.89XA Other complications of procedures, not elsewhere classified, initial encounter
CPT/HCPCS: 10061; G0463; 10060; 99214; 99282

== ENCOUNTER → 2024-03-01 | Outpatient (CLI) | payer MEDICAID, SELFPAY ==
--- NOTE | 2024-03-01 08:59 | BI_ITS ---
MAMMOGRAPHY - BILATERAL DIAGNOSTIC REASON FOR EXAM: Female, 48 years old. Right axillary pain and swelling. Recent right axillary abscess drainage in the last 2 weeks. PERTINENT HISTORY: Non-contributory. TECHNIQUE: Digital bilateral breast wesley (3D mammographic acquisition) in the CC and MLO projections. 2-D mediolateral oblique (MLO) and craniocaudad (CC) views of both breasts were obtained. CAD: Full Field Digital Mammography with Computer Added Detection was performed. COMPARISON: Comparison is made with prior outside examination of February 23, 2022. FINDINGS: Breast Composition: There are scattered areas of fibroglandular density. There are no dominant masses or suspicious calcifications. No other significant abnormalities are identified. There has been no significant change since the prior study. BI/DIAG MAMM W/CAD, BILAT IMPRESSION: Stable bilateral diagnostic mammogram. With the patient''s history of swelling and pain in the right axilla, targeted correlation with ultrasound is recommended. ASSESSMENT CATEGORY: BIRADS Category 0: Incomplete. Need additional imaging evaluation. A letter regarding these results will be sent to the patient by the facility within 30 days. Approximately 10% of breast cancers are not detected by mammography. A normal mammogram should not delay biopsy of a clinically suspicious abnormality. Electronically Signed: Dev Chan MD at 9:55 EDT ,
--- NOTE | 2024-03-01 08:59 | US_ITS ---
STUDY: ULTRASOUND BREAST - RIGHT REASON FOR EXAM: Female, 48 years old. Prior right axillary drainage. Right axillary pain. TECHNIQUE: Axial and longitudinal images of the RIGHT breast were performed with a high resolution ultrasound transducer. # OF IMAGES: 39 COMPARISON: Comparison is made with prior mammogram done earlier today. FINDINGS: RIGHT Breast: Minimal amount of edematous tissue is seen in the right axilla. Incidental note is made of a 1.5 cm x 2.1 cm x 0.6 cm benign-appearing lymph node. US/Breast Limited Unilateral IMPRESSION: Minimal degree of residual adenomatous tissue in the right axilla. Benign-appearing lymph node seen at that site. ASSESSMENT CATEGORY: BIRADS Category 2: Benign. A letter regarding these results will be sent to the patient by the facility within 30 days. Electronically Signed: Dev Chan MD at 11:51 EDT ,
== END | disposition home or self-care (01) ==
LOC: OPBI 08:57
PROVIDERS: PCP Family Medicine; Referring Provider Family Medicine; Visit Provider Family Medicine
DX: Z12.31 Encounter for screening mammogram for malignant neoplasm of breast (principal); M79.89 Other specified soft tissue disorders
CPT/HCPCS: 76642; 77062; 77063; 77066; G0279

== ENCOUNTER 2024-03-04 10:15 | Outpatient (RCR) | payer MEDICAID, SELFPAY ==
[2024-02-19 08:51] VITALS: BP 117/71; PULSE 72; RESP 18; TEMP 36.3; BMI 32.3
--- NOTE | 2024-02-19 09:42 | HP.PCM_ITS ---
History of Present Illness Date of Service: 02/19/24 Chief Complaint: Right axilla abscess History of Wound: 48-year-old female presents with right axilla abscess that initially started 02/11/24. She went to the ED on 02/13/24 and had the abscess drained, she was started on Augmentin. At that time her WBC 17.8. She was told to follow up with her PCP, but she couldn't into see them, so she followed up on 02/14/24 at [facility]. They cultured her wound (which showed MSSA), and referred to the wound center for further evaluation and management of the right axilla area. Today she is complaining of continuous pain and swelling in the right axilla. She states that the pain has slightly improved since last week where she is able to lift her arm now. Overall, she states that the redness has not improved. She cannot tolerate the axilla being palpated due to the discomfort. She states she has been taking her antibiotics and she as a couple days left. She still does not have anything to pack her wound with. She is denying fever, chills, nausea, vomiting or diarrhea. She has a medical history of [employer] 2 DM, Bipolor, PTSD, ADD, OCD, anxiety and depression. Progress of Wound: Right axilla with significant erythema and swelling. Area extremely tender to palpation. She has two areas of erythema and firmness. The first is the area that was drained last week in the ED, there is a small opening that is draining clear fluid. The second area is posterior to the area that was I&D'd. It is very firm and tender. She currently does not have a fever. [facility] Medical History Bipolar disorder Carpal tunnel syndrome of right wrist Spinal stenosis Lumbar radiculopathy Type 2 diabetes mellitus Drug abuse IBS (irritable bowel syndrome) Tuberculosis Skin cancer Osteoarthritis H/O gastroesophageal reflux (GERD) Diabetes Breast lump Arthritis Anemia Chronic headaches Home Medications ?Medication ?Instructions ?Recorded ?Last Taken ?Type cholecalciferol (vitamin D3) 50 50 mcg PO DAILY 09/11/23 Unknown History mcg (2,000 unit) capsule clobetasol 0.05 % topical cream 1 applic topical DAILY 09/11/23 Unknown History clonazepam 1 mg tablet 1 mg PO 4X/DAY PRN anxiety 09/11/23 Unknown History flash glucose scanning reader 09/11/23 Unknown History (FreeStyle Emmanuel 14 Day [place]) hydroxyzine HCl 25 mg tablet 25 mg PO TID PRN itching 09/11/23 Unknown History lumateperone 21 mg capsule 21 mg PO DAILY 09/11/23 Unknown History (Caplyta) metformin 500 mg tablet 500 mg PO BID 09/11/23 Unknown History pregabalin 150 mg capsule 150 mg PO TID 09/11/23 Unknown History vortioxetine 20 mg tablet 20 mg PO QDAY 09/11/23 Unknown History (Trintellix) atorvastatin 10 mg tablet 10 mg PO QDAY #90 tabs 09/25/23 Unknown Rx cetirizine 10 mg capsule (All Day 10 mg PO DAILY PRN allergy 10/23/23 Unknown Rx Allergy (cetirizine)) symptoms #90 caps pantoprazole 40 mg tablet,delayed 40 mg PO QDAY #90 tabs 11/15/23 Unknown Rx release flash glucose sensor (FreeStyle #1 ea 11/16/23 Unknown Rx Emmanuel 2 Sensor kit) estradiol 1 mg tablet 1 mg PO QDAY #30 tabs 12/25/23 Unknown Rx docusate sodium 100 mg capsule 100 mg PO BID #60 caps 01/19/24 Unknown Rx arm brace (Wrist Brace) #2 ea 01/24/24 Unknown Rx aripiprazole 5 mg tablet (Abilify) 5 mg PO DAILY 02/13/24 Unknown History iodoform 1/4 X 5 yard bandage #12 ea 02/13/24 Unknown Rx amoxicillin 875 mg-potassium 1 tab PO Q12.TCU 02/19/24 Unknown History clavulanate 125 mg tablet bupropion HCl 100 mg tablet 100 mg PO BID 02/19/24 Unknown History bupropion HCl 150 mg tablet,12 hr 150 mg PO DAILY 02/19/24 Unknown History sustained-release bupropion HCl 300 mg 24 hr tablet, 300 mg PO DAILY 02/19/24 Unknown History extended release metformin 500 mg tablet 500 mg PO DAILY 02/19/24 Unknown History mirabegron 50 mg tablet,extended 100 mg PO DAILY 02/19/24 Unknown History release 24 hr (Myrbetriq) sulfamethoxazole 800 1 tab PO BID #20 TABLETS 02/19/24 Unknown Rx mg-trimethoprim 160 mg tablet Allergy/AdvReac Type Severity Reaction Status Date / Time No Known Allergies Allergy Verified 02/19/24 10:09 Surgical History Hx of lumbosacral spine surgery H/O: hysterectomy S/P cervical spinal fusion H/O adenoidectomy History of tonsillectomy Social History adopted: No household members: spouse number of children: 2 current occupational status: disabled pets and animals: Yes (3) pets and animals: cat(s) Smoking Status: Current every day smoker tobacco type: cigarettes Tobacco: How many years used: 45 quit status: has quit before alcohol intake: current alcohol intake frequency: a few times a month substance use type: marijuana and methamphetamine diet: other caffeine: Yes (5) Type: carbonated beverages frequency: does not exercise seatbelt use: always do you feel safe at home: Yes ROS Constitutional Constitutional: Reports fatigue; Denies chills, fever(s) or headache(s) Eyes Eyes: Reports none ENT HEENT: Reports none Cardiovascular Cardiovascular: Denies chest pain or dyspnea Respiratory/Chest Respiratory/Chest: Denies cough Gastrointestinal Gastrointestinal: Denies diarrhea, dyspepsia, nausea or vomiting Genitourinary Genitourinary: Denies difficulty urinating Musculoskeletal Musculoskeletal: Denies joint pain or joint stiffness Integumentary Integumentary: Reports erythema, furuncle and wounds Neurologic Neurologic: Reports none Psychiatric Psychiatric: Reports as per HPI Endocrine Endocrinology: Reports as per HPI Vital Signs Vital Signs Vital Signs: 02/19/24 08:51 Temperature 97.4 F L Temperature Source Temporal Pulse Rate 72 Respiratory Rate 18 Blood Pressure 117/71 Blood Pressure Mean 86 Blood Pressure Source Monitor Weight Weight: 165 lb 12.203 oz Body Mass Index (BMI) 32.3 Physical Exam Const alert and oriented x3 General Appearance: cooperative HEENT normocephalic Head and Scalp: atraumatic Eyes General Eye: normal appearance of both eyes Neck full ROM Lymph Lymphatic Narrative: Unable to palpate right axilla to check for lymphadenopathy due to the amount of discomfort she is experiencing. Resp normal respiratory effort, normal air movement and clear to auscultation bilaterally Effort and Inspection: able to speak in complete sentences Cardio regular rate and regular rhythm GI soft to palpation and non-tender Back/Spine normal ROM Extremity full ROM and normal capillary refill Skin Wound Narrative: Right axilla with erythema, warmth and tenderness to palpation. Initial area of erythema was lanced open last week. She continues to have extreme tenderness, erythema and warmth of this area. She has a second area of firmness distal to the area that was lanced opened last week. Her entire axilla is erythematous and extremely tender to palpation. Neuro oriented x3 Psych thought process normal and cooperative Debridement Note Debridement Note Post-Debridement Measurements and Additional Note: Post-Debridement Measurements/Treatment WC - Nurse 1 - General Ulcer Assessment Start: 02/19/24 08:51 Freq: Status: Active Protocol: KAREL Activity Type Activity Date Activity User E-sign Co-sign Detail Recorded Client Recorded Date Recorded By Document 02/19/24 08:51 SANTIAGO [id number] 02/19/24 09:03 DL 02/19/24 08:51 - Today's Visit Information Type of service Initial Visit Arrival Mode Ambulatory Transfer Assistance None Patient Identification Verified (Name & Yes ) Patient Requires Transmission-Based No Precautions Height and Weight Height 5 ft Weight 165 lb 12.203 oz Weight in Pounds 165.8 lbs Body Mass Index (BMI) 32.3 BMI Classification Obese BSA - [place] 1.72 Vital Signs Temperature (97.8 F-99.1 F) 97.4 F L Temperature Source Temporal Pulse Rate (60-100) 72 Pulse Location Monitor Respiratory Rate (12-18) 18 Respiratory rate source Observation Blood Pressure (90/60-120/80) 117/71 Blood Pressure Mean 86 Source Monitor Pain Scale: 0-10 Numeric Is Patient Pain Free? Yes Communication Assessment Preferred language Swedish Able to Read Yes Able to Write Yes Communication Tools None Right Hearing Abillity Hard of Hearing Left Hearing Abillity Normal Visual Assistive Devices Glasses Teaching Assessment Preferences Verbal,Written, Demonstration Barriers to Learning None Readiness To Learn Good Willingness to Engage in Self Management Med Activies Readiness to Engage in Self Management Med Activities Anxiety Level Calm Cooperation Cooperative Perception Coherent Interest in Health Problem Asks Questions Education Importance Acknowledges Need Does Patient Smoke tobacco or other Yes substances Smoking Status Current every day smoker Is Patient Diabetic Yes Functional Assessment Recent Decline in Ability to Perform Denies Any Declines Culture/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 Oil Well Service Unit Operator to contact place of caodaism No WC - Nurse 1 - General Ulcer Measurement Start: 02/19/24 08:51 Freq: Status: Active Protocol: Activity Type Activity Date Activity User E-sign Co-sign Detail Recorded Client Recorded Date Recorded By Document 02/19/24 08:51 SANTIAGO [id number] 02/19/24 09:03 SANTIAGO 02/19/24 08:51 Wound Center Nurse 1 #1 R Axilla -Current Size (cm) - Length 0.2 -Current Size (cm) - Width 0.2 -Current Size (cm) - Depth 0.7 -Total Square Cm 0.04 -Photo Taken Yes -Exudate Amt Medium -Exudate Type Serosanguineous -Wound Margin Distinct, Outline Attached -Granulation Amt None Present (0 %) -Necrosis Amt None Present (0 %) -Structure Exposed N/A -Texture (Nehal-wound Skin Appearance) Localized Edema ,Scarring -Moisture (Nehal-wound Skin Appearance) No Abnormality -Color (Nehal-wound Skin Appearance) Erythema -Temperature (Nehal-wound Skin No Abnormality Appearance) (Pt Warm) -Tenderness on Palpation (Nehal-wound No Skin Appearance) -Ulcer Cleansing Soap and Water -Foul Odor after Cleansing No -Anesthetic Used 5% Lidocaine Gel JERRY - Nurse 2 - General Ulcer CM Notes Start: 02/19/24 08:51 Freq: Status: Active Protocol: Activity Type Activity Date Activity User E-sign Co-sign Detail Recorded Client Recorded Date Recorded By Document 02/19/24 09:34 JF [id number] 02/19/24 09:35 SHABBIR 02/19/24 09:34 Wound Center Nurse 2 -Correct Patient No -Correct Side, Site, Position No -Correct Procedure No -Procedure Performed No -Wound/Ulcer Outcome Not Healed Pain Scale: 0-10 Numeric Is Patient Pain Free? Yes Charges/Coding Visit Charges Office Visits / Consults: 98168 OV L4 Est 30min Assessment/Plan Assessment/Plan (1) Abscess of right axilla: CODE(S): L02.411 - Cutaneous abscess of right axilla (2) Cellulitis of right axilla: CODE(S): L03.111 - Cellulitis of right axilla (3) Type 2 diabetes mellitus: CODE(S): E11.9 - Type 2 diabetes mellitus without complications (4) Open wound of right axillary region: CODE(S): S41.101A - Unspecified open wound of right upper arm, initial encounter PLAN: Plan Patient evaluated at the wound healing center today. Her right axilla continues to be very erythematous and painful even though she had an area lanced last week and wound cultures obtained from 02/14/24 which were positive for MSSA. She denies being febrile, but her overall symptoms have not improved much over the past week. With her being a diabetic and smoker, she needs further evaluation of this issue. Wound care - Pack wound with iodoform gauze daily. Referring her to the ED for further evaluation of her axilla. Unsure if she needs further imaging or I&D. Phoned the ED to let them know that she is being sent over. Encouraged patient to stop smoking as it may have deleterious effects on wound healing. She should follow up with us in a week.
[2024-02-26 09:56] VITALS: BP 117/80; PULSE 93; RESP 18; TEMP 36.4; BMI 32.3
--- NOTE | 2024-02-26 10:25 | PN.PCM_ITS ---
History of Present Illness Date of Service: 02/26/24 Chief Complaint: Right axilla abscess History of Wound: 48-year-old female presents with right axilla abscess that initially started 02/11/24. She went to the ED on 02/13/24 and had the abscess drained, she was started on Augmentin. At that time her WBC 17.8. She was told to follow up with her PCP, but she couldn't into see them, so she [facility] up [facility]/24 [facility]. They cultured her wound (which showed MSSA), and referred to the wound center for further evaluation and management of the right axilla area. Today she is complaining of continuous pain and swelling in the right axilla. She states that the pain has slightly improved since last week where she is able to lift her arm now. Overall, she states that the redness has not improved. She cannot tolerate the axilla being palpated due to the discomfort. She states she has been taking her antibiotics and she as a couple days left. She still does not have anything to pack her wound with. She is denying fever, chills, nausea, vomiting or diarrhea. 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 Progress of Wound: 19 Feb 2024: Right axilla with significant erythema and swelling. Area extremely tender to palpation. She has two areas of erythema and firmness. The first is the area that was drained last week in the ED, there is a small opening that is draining clear fluid. The second area is posterior to the area that was I&D'd. It is very firm and tender. She currently does not have a fever. Subjective Subjective Current encounter, 26 February 2024: Patient doing well today no fevers or chills. Less drainage from the wounds. No redness or induration. She reports that it has been sometime (she is not sure how long) it is her last mammogram. She is calling this morning to schedule a mammogram (I talked to her about). No recent nipple drainage or any new lumps or bumps on her breasts. She does not know her family history of breast cancer as her mother at a young age (when the patient was 5) and she is not sure about other family. 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 No palpable lymphadenopathy in the left axilla. Palpable lymphadenopathy in the right axilla (fixed, do not appear tender). 2 small wounds that are draining serous fluid and appear to be healing well. No redness or induration in the right axilla and no pain to palpation. Appears to be healing well status post I&D with MSSA treatment. Const alert and oriented x3 Resp normal respiratory effort and clear to auscultation bilaterally Cardio regular rate and regular rhythm Debridement Note Debridement Note Post-Debridement Measurements and Additional Note: Post-Debridement Measurements/Treatment - Nurse 1 - General Ulcer Assessment Start: 02/19/24 08:51 Freq: Status: Active Protocol: KAREL Activity Type Activity Date Activity User E-sign Co-sign Detail Recorded Client Recorded Date Recorded By Document 02/19/24 08:51 DL [id number] 02/19/24 09:03 DL Document 02/26/24 09:56 KW [id number] 02/26/24 10:03 KW 02/19/24 02/26/24 08:51 09:56 - Today's Visit Information Type of service Initial Visit Follow-up Visit (Physician/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 BOARD ) Arrival Mode Ambulatory Ambulatory Transfer Assistance None Patient Identification Verified (Name & Yes Yes ) Patient Requires Transmission-Based No Precautions Height and Weight Height 5 ft Weight 165 lb 12.203 oz Weight in Pounds 165.8 lbs Body Mass Index (BMI) 32.3 32.3 BMI Classification Obese Obese BSA - [place] 1.72 Vital Signs Temperature (97.8 F-99.1 F) 97.4 F L 97.5 F L Temperature Source Temporal Temporal Pulse Rate (60-100) 72 93 Pulse Location Monitor Monitor Respiratory Rate (12-18) 18 18 Respiratory rate source Observation Observation Oxygen Delivery Method Room Air Blood Pressure (90/60-120/80) 117/71 117/80 Blood Pressure Mean (mm Hg) 86 92 Source Monitor Monitor Position Semi-Fowlers Blood Pressure Location Left Arm History Since Last Visit- (Skip if this is Patient's initial visit) Have you changed medications since your No last visit? Any new allergies or adverse reactions No Had a fall/change in ADL's that may No increase risk of falls Signs or symptoms of abuse and/or No neglect since last visit Have you been in the hospital since your Yes last visit? Has dressing in place as prescribed Yes Has compression in place as prescribed N/A Has offloadiing in place as prescribed N/A Experienced any changes in pain level or No management Left Footwear Regular Shoe Right Footwear Regular Shoe Pain Scale: 0-10 Numeric Is Patient Pain Free? Yes Yes Communication Assessment Preferred language [place] Islander Able to Read Yes Able to Write Yes Communication Tools None Right Hearing Abillity Hard of Hearing Left Hearing Abillity Normal Visual Assistive Devices Glasses Teaching Assessment Preferences Verbal,Written, Demonstration Barriers to Learning None Readiness To Learn Good Willingness to Engage in Self Management Med Activies Readiness to Engage in Self Management Med Activities Anxiety Level Calm Cooperation Cooperative Perception Coherent Interest in Health Problem Asks Questions Education Importance Acknowledges Need Does Patient Smoke tobacco or other Yes substances Smoking Status Current every day smoker Is Patient Diabetic Yes Functional Assessment Recent Decline in Ability to Perform Denies Any Declines Culture/Restorationism/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 Brooch And Bracelet Maker to contact place of confucianist No WC - Nurse 1 - General Ulcer Measurement Start: 02/19/24 08:51 Freq: Status: Active Protocol: Activity Type Activity Date Activity User E-sign Co-sign Detail Recorded Client Recorded Date Recorded By Document 02/19/24 08:51 DL [id number] 02/19/24 09:03 DL Document 02/26/24 09:56 KW [id number] 02/26/24 10:03 KW 02/19/24 02/26/24 08:51 09:56 Wound Center Nurse 1 #1 R Axilla cluster -Current Size (cm) - Length 0.2 1 -Current Size (cm) - Width 0.2 3 -Current Size (cm) - Depth 0.7 0.5 -Total Square Cm 0.04 3 -Photo Taken Yes -Exudate Amt Medium Small -Exudate Type Serosanguineous Serosanguineous -Wound Margin Distinct, Thickened & Outline Rolled Under Attached -Granulation Amt None Present (0 Large (67-100%) %) -Granulation Quality [place] -Necrosis Amt None Present (0 %) -Structure Exposed N/A -Texture (Nehal-wound Skin Appearance) Localized Edema Assessed ,Scarring -Moisture (Nehal-wound Skin Appearance) No Abnormality Assessed -Color (Nehal-wound Skin Appearance) Erythema Assessed -Temperature (Nehal-wound Skin No Abnormality No Abnormality Appearance) (Pt Warm) (Pt Warm) -Tenderness on Palpation (Nehal-wound No No Skin Appearance) -Ulcer Cleansing Soap and Water Rinsed/ Irrigated with Saline -Foul Odor after Cleansing No No -Anesthetic Used 5% Lidocaine 5% Lidocaine Gel Gel - Nurse 2 - General Ulcer CM Notes Start: 02/19/24 08:51 Freq: Status: Active Protocol: Activity Type Activity Date Activity User E-sign Co-sign Detail Recorded Client Recorded Date Recorded By Document 02/19/24 09:34 [id number] 02/19/24 09:35 Document 02/26/24 10:15 [id number] 02/26/24 10:19 02/19/24 02/26/24 09:34 10:15 Wound Center Nurse 2 #1 R Axilla cluster -Correct Patient No No -Correct Side, Site, Position No No -Correct Procedure No No -Procedure Performed No No -Wound/Ulcer Outcome Not Healed Not Healed -Debridement - Subq, 1st 20sq cm No Pain Scale: 0-10 Numeric Is Patient Pain Free? Yes Yes - Nurse 3 - General Ulcer D/C NN Start: 02/19/24 08:51 Freq: Status: Active Protocol: Activity Type Activity Date Activity User E-sign Co-sign Detail Recorded Client Recorded Date Recorded By Document 02/19/24 09:43 [facility] [id number] 02/19/24 09:43 [facility] 02/19/24 09:43 Wound Care Center Nurse 3 #1 R Axilla cluster -Primary Dressing Applied Nugauze, Iodoform 1/4in -Other Dressing drsg per dl employment programs analyst -Primary Dressing Covered/Secured with Dry Gauze, Secured with Tape -Other Covering pt going to er after visit -Nugauze, Iodoform 1/4in 1 Treatment Response Procedure Tolerated Well Pain Scale: 0-10 Numeric Is Patient Pain Free? Yes WC - Visit Discharge Discharge Condition Stable Ambulatory Status Ambulatory Transportation Private Auto Assessment/Plan Assessment/Plan (1) Open wound of right axillary region: CODE(S): S41.101A - Unspecified open wound of right upper arm, initial encounter PLAN: Patient will need a mammogram this week. Lymphadenopathy could be reactive from recent infection but need to rule out other processes. Follow-up in clinic in 1 week to examine wounds Continue iodoform packing once daily to the 2 right axillary wounds Finish out Augmentin
[2024-03-04 10:24] VITALS: BP 124/79; PULSE 81; RESP 16; TEMP 36.6; BMI 32.3
--- NOTE | 2024-03-04 12:19 | PN.PCM_ITS ---
History of Present Illness Date of Service: 03/04/24 Chief Complaint: Right axilla abscess History of Wound: 48-year-old female presents with right axilla abscess that initially started 02/11/24. She went to the ED on 02/13/24 and had the abscess drained, she was started on Augmentin. At that time her WBC 17.8. She was told to follow up with her PCP, but she couldn't into see them, so she [facility] up on [facility]. They cultured her wound (which showed MSSA), and referred to the wound center for further evaluation and management of the right axilla area. Today she is complaining of continuous pain and swelling in the right axilla. She states that the pain has slightly improved since last week where she is able to lift her arm now. Overall, she states that the redness has not improved. She cannot tolerate the axilla being palpated due to the discomfort. She states she has been taking her antibiotics and she as a couple days left. She still does not have anything to pack her wound with. She is denying fever, chills, nausea, vomiting or diarrhea. 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 Progress of Wound: Right axilla erythema and swelling have resolved. She does have a palpable firm area that most likely is the lymph node found on ultra sound. Wounds are healed today. Pain has resolved. Objective Data Objective Data Vital Signs: Vital Signs Temp Pulse Resp BP O2 Del Method 97.8 F 81 16 124/79 H Room Air 03/04/24 10:24 03/04/24 10:24 03/04/24 10:24 03/04/24 10:24 03/04/24 10:24 Oxygen Delivery Method Room Air Weight: 165 lb 12.203 oz Body Mass Index (BMI) 32.3 Charges/Coding Visit Charges Office Visits / Consults: 35334 OV L2 Est 10min Physical Exam Const alert and oriented x3 General Appearance: cooperative HEENT normocephalic Head and Scalp: atraumatic Eyes General Eye: normal appearance of both eyes Neck full ROM Lymph Lymphatic Narrative: Right axilla with palpable area that most likely is a lymph node. It is mobile, slightly tender with palpation. Resp normal respiratory effort, normal air movement and clear to auscultation romario aterally Effort and Inspection: able to speak in complete sentences Cardio regular rate and regular rhythm GI soft to palpation and non-tender Back/Spine normal ROM Extremity full ROM and normal capillary refill Skin Wound Narrative: Right axilla erythema, swelling and tenderness are resolved. Incisions where her I&D was performed have healed. Neuro oriented x3 Psych thought process normal and cooperative Debridement Note Debridement Note No debridement was completed: No debridement was completed today Post-Debridement Measurements and Additional Note: Post-Debridement Measurements/Treatment - Nurse 1 - General Ulcer Assessment Start: 02/19/24 08:51 Freq: Status: Active Protocol: [email or web address] Activity Type Activity Date Activity User E-sign Co-sign Detail Recorded Client Recorded Date Recorded By Document 02/19/24 08:51 DL [id number] 02/19/24 09:03 DL Document 02/26/24 09:56 KW [id number] 02/26/24 10:03 KW Document 03/04/24 10:24 BMF [id number] 03/04/24 10:30 BMF 02/19/24 02/26/24 03/04/24 08:51 09:56 10:24 - Today's Visit Information Type of service Initial Visit Follow-up Visit Follow-up Visit (Physician/FACTORY LAY OUT ENGINEER (Physician/FACTORY LAY OUT ENGINEER ) ) Arrival Mode Ambulatory Ambulatory Ambulatory Transfer Assistance None None Patient Identification Verified (Name & Yes Yes Yes ) Patient Requires Transmission-Based No No Precautions Height and Weight Height 5 ft Weight 165 lb 12.203 oz Weight in Pounds 165.8 lbs Body Mass Index (BMI) 32.3 32.3 32.3 BMI Classification Obese Obese Obese BSA - [place] 1.72 Vital Signs Temperature (97.8 F-99.1 F) 97.4 F L 97.5 F L 97.8 F Temperature Source Temporal Temporal Temporal Pulse Rate (60-100) 72 93 81 Pulse Location Monitor Monitor Monitor Respiratory Rate (12-18) 18 18 16 Respiratory rate source Observation Observation Observation Oxygen Delivery Method Room Air Room Air Blood Pressure (90/60-120/80) 117/71 117/80 124/79 H Blood Pressure Mean (mm Hg) 86 92 94 Source Monitor Monitor Monitor Position Semi-Fowlers Sitting Blood Pressure Location Left Arm Left Arm History Since Last Visit- (Skip if this is Patient's initial visit) Have you changed medications since your No No last visit? Any new allergies or adverse reactions No No Had a fall/change in ADL's that may No No increase risk of falls Signs or symptoms of abuse and/or No No neglect since last visit Have you been in the hospital since your Yes No last visit? Has dressing in place as prescribed Yes No Has compression in place as prescribed N/A N/A Has offloadiing in place as prescribed N/A N/A Experienced any changes in pain level or No No management Left Footwear Regular Shoe Regular Shoe Right Footwear Regular Shoe Regular Shoe Pain Scale: 0-10 Numeric Is Patient Pain Free? Yes Yes Yes Communication Assessment Preferred language [place] Able to Read Yes Able to Write Yes Communication Tools None Right Hearing Abillity Hard of Hearing Left Hearing Abillity Normal Visual Assistive Devices Glasses Teaching Assessment Preferences Verbal,Written, Demonstration Barriers to Learning None Readiness To Learn Good Willingness to Engage in Self Management Med Activies Readiness to Engage in Self Management Med Activities Anxiety Level Calm Cooperation Cooperative Perception Coherent Interest in Health Problem Asks Questions Education Importance Acknowledges Need Does Patient Smoke tobacco or other Yes substances Smoking Status Current every day smoker Is Patient Diabetic Yes Functional Assessment Recent Decline in Ability to Perform Denies Any Declines Culture/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 Scrap Drop Crane Operator to contact place of denominational No WC - Nurse 1 - General Ulcer Measurement Start: 02/19/24 08:51 Freq: Status: Active Protocol: Activity Type Activity Date Activity User E-sign Co-sign Detail Recorded Client Recorded Date Recorded By Document 02/19/24 08:51 DL [id number] 02/19/24 09:03 DL Document 02/26/24 09:56 KW [id number] 02/26/24 10:03 KW Document 03/04/24 10:24 BM [id number] 03/04/24 10:30 BM 02/19/24 02/26/24 03/04/24 08:51 09:56 10:24 Wound Center Nurse 1 #1 R Axilla cluster -Combined with other wound No -Current Size (cm) - Length 0.2 1 0.1 -Current Size (cm) - Width 0.2 3 0.1 -Current Size (cm) - Depth 0.7 0.5 0.1 -Total Square Cm 0.04 3 0.01 -Date of Last Picture (Recall this 03/04/24 field) -Photo Taken Yes Yes -Epithelialization Large 67-100% -Exudate Amt Medium Small None Present -Exudate Type Serosanguineous Serosanguineous -Wound Margin Distinct, Thickened & Outline Rolled Under Attached -Granulation Amt None Present (0 Large (67-100%) %) -Granulation Quality [place] -Necrosis Amt None Present (0 %) -Structure Exposed N/A -Texture (Nehal-wound Skin Appearance) Localized Edema Assessed Assessed, ,Scarring Scarring -Moisture (Nehal-wound Skin Appearance) No Abnormality Assessed Assessed,Dry/ Scaly -Color (Nehal-wound Skin Appearance) Erythema Assessed Assessed -Temperature (Nehal-wound Skin No Abnormality No Abnormality No Abnormality Appearance) (Pt Warm) (Pt Warm) (Pt Warm) -Tenderness on Palpation (Nehal-wound No No No Skin Appearance) -Ulcer Cleansing Soap and Water Rinsed/ Rinsed/ Irrigated with Irrigated with Saline Saline -Foul Odor after Cleansing No No No -Anesthetic Used 5% Lidocaine 5% Lidocaine 5% Lidocaine Gel Gel Gel WC - Nurse 2 - General Ulcer CM Notes Start: 02/19/24 08:51 Freq: Status: Active Protocol: Activity Type Activity Date Activity User E-sign Co-sign Detail Recorded Client Recorded Date Recorded By Document 02/19/24 09:34 [id number] 02/19/24 09:35 Document 02/26/24 10:15 [id number] 02/26/24 10:19 Document 03/04/24 10:51 [id number] 03/04/24 10:53 02/19/24 02/26/24 03/04/24 09:34 10:15 10:51 Wound Center Nurse 2 #1 R Axilla cluster -Correct Patient No No No -Correct Side, Site, Position No No No -Correct Procedure No No No -Procedure Performed No No No -Post Debridement (cm) - Length 0 -Post Debridement (cm) - Width 0 -Post Debridement (cm) - Depth 0 -Total Square (Post) (cm) 0 -Area of Debridement (cm) - Length 0 -Area of Debridement (cm) - Width 0 -Total Square (Area) (cm) 0 -Wound/Ulcer Outcome Not Healed Not Healed Healed- Epithelialized -Debridement - Subq, 1st 20sq cm No Pain Scale: 0-10 Numeric Is Patient Pain Free? Yes Yes Yes - Nurse 3 - General Ulcer D/C NN Start: 02/19/24 08:51 Freq: Status: Active Protocol: Activity Type Activity Date Activity User E-sign Co-sign Detail Recorded Client Recorded Date Recorded By Document 02/19/24 09:43 [facility] [id number] 02/19/24 09:43 BM Document 02/26/24 10:25 KW [id number] 02/26/24 10:27 KW Document 03/04/24 10:54 JF [id number] 03/04/24 10:55 JF 02/19/24 02/26/24 03/04/24 09:43 10:25 10:54 Wound Care Center Nurse 3 #1 R Axilla cluster -Ulcer Cleansing Rinsed/ Irrigated with Saline -Foul Odor after Cleansing No -Primary Dressing Applied Nugauze, Nugauze, Iodoform 1/4in Iodoform 1/4in -Other Dressing drsg per dl golf range attendant -Primary Dressing Covered/Secured with Dry Gauze, Dry Gauze, Secured with Secured with Tape Tape -Other Covering pt going to er after visit -Nugauze, Iodoform 1/4in 1 1 Treatment Response Procedure Procedure Tolerated Well Tolerated Well Pain Scale: 0-10 Numeric Is Patient Pain Free? Yes Yes Yes - Visit Discharge Discharge Condition Stable Stable Stable Ambulatory Status Ambulatory Ambulatory Ambulatory Transportation Private Auto Private Auto Private Auto Medication Reconcilliation completed & Yes provided to patient/care provider Clinical Summary of Care Provided Yes Notes: patient healed up and discharged. Patient has 1 more atb to take. Ultrasound and mammogram reviewed. Assessment/Plan Assessment/Plan (1) Open wound of right axillary region: CODE(S): S41.101A - Unspecified open wound of right upper arm, initial encounter PLAN: Patient had a mammogram that was normal. Ultrasound from 03/01/24 - Minimal amount of edematous tissue is seen in the right axilla. Incidental note is made of a 1.5 cm x 2.1 cm x 0.6 cm benign-appearing lymph node. Lymphadenopathy most likely reactive from recent infection. Completed Augmentin. Encouraged patient to stop smoking as it may have deleterious effects on wound healing. Follow-up with Dr Crespo (PCP). Follow up at wound center as needed.
--- NOTE | 2024-03-05 09:11 | WC ---
PHOTO 03/04/24 RIGHT AXILLA
== END 2024-03-04 14:02 | disposition home or self-care (01) ==
LOC: WC 10:15
PROVIDERS: PCP Family Medicine; Referring Provider Physician Assistant; Visit Provider Nurse Practitioner Family
DX: L02.411 Cutaneous abscess of right axilla (principal); F31.9 Bipolar disorder, unspecified; E11.9 Type 2 diabetes mellitus without complications; F17.200 Nicotine dependence, unspecified, uncomplicated; F41.9 Anxiety disorder, unspecified; L03.111 Cellulitis of right axilla; Z79.84 Long term (current) use of oral hypoglycemic drugs; F43.10 Post-traumatic stress disorder, unspecified; Z90.710 Acquired absence of both cervix and uterus; S41.101A Unspecified open wound of right upper arm, initial encounter
CPT/HCPCS: G0463; 99213; 99214

== ENCOUNTER 2024-03-15 17:12 | Inpatient (IN) | payer MEDICAID, SELFPAY ==
[2024-03-15] VITALS (18 sets, daily range): BP systolic 82–135; BP diastolic 58–111; PULSE 68–102; RESP 12–23; TEMP 35.1–36.3; O2SAT 94–100; BMI 28.5; BMI 26.9
--- NOTE | 2024-03-15 17:13 | CT_ITS ---
STUDY: CT BRAIN WITHOUT CONTRAST
--- NOTE | 2024-03-15 17:15 | RAD_ITS ---
INDICATION: Intubation EXAMINATION/TECHNIQUE: X-RAY - XR Chest 1 View COMPARISON: FINDINGS: LINES/DEVICES: Endotracheal tube with tip 35 mm above the abby. Nasogastric tube in the stomach. LUNGS: Possible mild left basilar infiltrate. No pneumothorax. MEDIASTINUM AND CARDIOVASCULAR STRUCTURES: Cardiac silhouette not enlarged. Central airways and mediastinal contour are unremarkable. BONES AND SOFT TISSUES: Unremarkable. RAD/Chest 1 View (Portable) IMPRESSION: Possible left basilar infiltrate. Electronically Signed: Carlos Yeager DO at 19:15 EDT ,
[2024-03-15] MEDS: Etomidate 20 MG/10 ML Vial IV (17:20)
[2024-03-15] MEDS: 0.9% Normal Saline (1000mL) 1,000 ML 999 ML IV (17:21)
--- NOTE | 2024-03-15 17:24 | EDS_ITS ---
HPI History of Present Illness Chief Complaint: Unresponsive Detail of Chief Complaint: GCS 3 Informant: EMS Onset/Context/Timing Onset: Hours Context: Sudden Onset Timing: Continuous Quality: Detailed HPI narrative Location: Found in bedroom unresponsive by Maximum Severity: Severe Associated Symptoms Length of loss of consciousness: Unknown Narrative Narrative: Patient was driven to court by her . Apparently she received bad news while in court. drove her home. last saw her awake and alert at 1330. Squad was called because she was found unresponsive in her bedroom. There is history of alcohol use. Paramedics were asked if is any history of depression. They replied none that they are aware of. Awaiting arrived to determine if there is a history of psychiatric sorter, and if she potentially took something. Prior similar symptoms: No Recent Illness/Hospitalization: No PFSH PFSH Medical History unable to obtain unable to obtain Allergy/AdvReac Type Severity Reaction Status Date / Time Unable to Assess Allergy Verified 03/15/24 17:13 Social History Smoking Status: Smoker, status unknown Homelessness:: Unspecified ROS ROS ED Review of Systems ROS Unobtainable: due to mental status EXAM Physical Exam Const Vital Signs: 03/15/24 17:13 03/15/24 17:22 03/15/24 17:23 Temperature 96.7 F L Temperature Source Axillary Pulse Rate 73 L Respiratory Rate 16 L 12 Respiratory Pattern Normal Apnea Blood Pressure 104/71 H Blood Pressure Mean 82 Pulse Ox 100 Oxygen Delivery Method Ambu-Bag Oxygen Flow Rate (L/min) 15 Fraction of Inspired Oxygen (FIO2) 60 03/15/24 17:37 03/15/24 17:42 03/15/24 18:08 Temperature Temperature Source Pulse Rate 91 102 H Respiratory Rate 12 15 Respiratory Pattern Blood Pressure 131/89 H Blood Pressure Mean 103 Pulse Ox 99 98 Oxygen Delivery Method Oxygen Flow Rate (L/min) Fraction of Inspired Oxygen (FIO2) 60 50 03/15/24 18:12 03/15/24 18:30 03/15/24 19:00 Temperature 95.3 F L 95.2 F L Temperature Source Core Core Pulse Rate 99 76 91 Respiratory Rate 23 H 14 15 Respiratory Pattern Blood Pressure 133/90 H 130/111 H 135/74 H Blood Pressure Mean 104 117 94 Pulse Ox 99 94 98 Oxygen Delivery Method Mechanical Ventilator Mechanical Ventilator Oxygen Flow Rate (L/min) 30 Fraction of Inspired Oxygen (FIO2) 50 Positive well nourished and well developed Constitutional Narrative: GCS 3 General Appearance ED: well developed and NAD; Negative for pallor HEENT HEENT Narrative: Patient arrived by ambulance. Patient was being bagged. normocephalic, atraumatic and tenderness; Negative for cyanosis of lips/distal nose Eyes PERRL and EOMs intact bilaterally Eyes Narrative: Pupils are 2 to 3 mm in size. General Eye ED: Negative for pale conjunctiva or scleral icterus Neck no lymphadenopathy, supple and no JVD Neck Narrative: Trachea is midline. There is no inspiratory expiratory stridor. Resp Resp Narrative: Patient is breathing 6 times a minute. Patient did receive 4 mg of Narcan prehospital with no improvement. She does not have pinpoint pupils. Cardio regular rate, regular rhythm, S1 normal heart sound, S2 normal heart sound and no murmurs GI non-tender, non-distended and no masses Palpation: soft Extremity Extremity Narrative: There is no obvious injuries or deformities to the extremities. There is no clubbing or cyanosis. Neuro No oriented x3 Neuro Narrative: GCS is 3. Psych Psych Narrative: Unable to determine Skin General Skin Exam: Negative for jaundice or pallor Lesions: no lesions Rashes: no rashes MDM MDM MDM Narrative Medical decision making narrative: Patient arrives with a GCS of 3. Doubt opiate overdose since she had no response to 4 mg of Narcan. Patient does have odor of alcohol to her breath. This could be due to alcohol intoxication. Talk screen was ordered. Because patient is unable to control her secretions she was orotracheally unabated. Will obtain CT of the head to rule out intracranial process. Blood work to assess white count, H&H, electrolytes, renal function, glucose, UA to assess for evidence of infection, specific gravity etc. Coags were obtained as well. History & Record Review Additional record(s) reviewed:: Prior ED visit (Patient has been seen for cellulitis and abscess in the past. She is on antidepressants and benzodiazepi gera per old records.) Lab Data Attestation: I reviewed the patient's lab results. Lab results narrative: CBC is normal. Coags are normal. Labs: Laboratory Results - last 24 hr 03/15/24 03/15/24 17:20 17:29 WBC 7.6 RBC 4.71 Hgb 13.8 Hct 42.6 MCV 90.4 MCH 29.3 MCHC 32.4 RDW Std Deviation 43.8 RDW Coeff of Dali 13.2 Plt Count 284 MPV 9.5 Immature Gran % (Auto) 0.700 Neut % (Auto) 72.8 H Lymph % (Auto) 21.5 Harris % (Auto) 3.4 Eos % (Auto) 0.9 Baso % (Auto) 0.7 Absolute Neuts (auto) 5.5 Absolute Lymphs (auto) 1.63 Nucleated RBC % 0 PT 12.6 INR 0.9 APTT 27.9 Sodium 135 L Potassium 3.8 Chloride 107 Carbon Dioxide 22.0 Anion Gap 6 BUN 12 Creatinine 0.70 Est GFR (MDRD) Af Amer 114 Est GFR (MDRD) Non-Af 95 BUN/Creatinine Ratio 17.2 Glucose 127 H Lactic Acid 1.7 Calcium 8.5 Total Bilirubin 0.30 AST 9 L ALT 25 Alkaline Phosphatase 99 Total Protein 7.1 Albumin 3.0 L Globulin 4.1 Albumin/Globulin Ratio 0.7 L Urine Color Yellow Urine Clarity Clear Urine pH 6.5 Ur Specific [place] 1.010 Urine Protein Negative Urine Glucose (UA) Normal Urine Ketones Negative Urine Occult Blood Negative Urine Nitrite Negative Urine Bilirubin Negative Urine Urobilinogen Normal Ur Leukocyte Esterase Negative Urine RBC 0 SEEN Urine WBC 0 SEEN Ur Squamous Epith Cells 0 SEEN Urine Bacteria 0 SEEN Urine Mucus 0 SEEN Ur Drug Screen Comment Ethyl Alcohol 337.0 H* Alcohol level is elevated at 337.0. UA is negative. Comprehensive metabolic panel reveals slight elevation in glucose of 127 with normal CO2 anion gap. ABG Data Attestation: I personally reviewed and interpreted this ABG as follows: Interpretation: Respiratory acidosis with increased AA gradient. Patient's respiratory rate was increased and FiO2 was decreased to 0.5. ABG results: ABG 03/15/24 17:52 Specimen Type ART Sample Site Not entered pH 7.28 L Bicarbonate Actual 25.6 Total CO2 27 Base Excess -1 O2 Saturation 99 O2 % 60.0 ABG pCO2 54.9 H ABG pO2 174 H Respiration Rate 12 O2 Delivery Device Adult Vent Vent Mode AC Tidal Volume 450.0 POC PEEP 5 Radiography Chest X-Ray - ED: 1 View (Single view chest x-ray reveals endotracheal tube to b e in proper position. Orogastric tube is in proper position. There is no evidence of pneumothorax, effusion or infiltrate. Hilum is normal. Cardiac silhouette size is unremarkable. [place] structures are unremarkable.) and Read by ED Physician (Single view x-ray of the abdomen, KUB, was obtained. OG is in proper position. This is independent reviewed interpreted by me.) Diagnostic Testing: Clinical Impression(s) from Imaging Studies Brain CT 03/15/24 17:13 IMPRESSION: Normal unenhanced CT scan of the brain. Electronically Signed: Carlos Yeager DO at 18:14 EDT , KUB X-Ray 03/15/24 17:53 IMPRESSION: Small focal left basilar infiltrate. Electronically Signed: Carlos Yeager DO at 19:11 EDT , CT of the head was performed. I did review it. There is no evidence of subdural hematoma, epidural hematoma, subarachnoid hemorrhage or intrapa renchymal bleed. There is no obvious stroke per my evaluation. There is no fluid in the sinuses. Rhythm Strip Rhythm Strip: Sinus Rhythm Rate: 72 Ectopy: None EKG Initial EKG: Attestation: I personally reviewed and interpreted this EKG as follows: Interpretation: Sinus Rhythm (Rate is 102. Addison to the right. IN interval is 190 ms. QS duration 98 ms. QT is 386 ms. This represents sinus tach.) Management Discussion w/another healthcare provider: Hospitalist Treatment and Re-Evaluation Narrative: Patient was pink slipped because of concern this was due to self-harm because of bad news he received a court. Procedures Other Procedures Procedure(s): Patient was preoxygenated. Patient received 20 mg of etomidate. Patient was orotracheal intubated on second attempt. Patient has soft tissue swelling noted. The epiglottis appeared normal. A 7.5 [place] endotracheal tube was placed on second attempt. There is appropriate color change on capnometer. Breath sounds were noted bilaterally. OG was ordered as well as Koehler. This was replaced by nursing staff. Critical Care Time Critical Care Time: Yes Critical care time (excluding procedures): 30-74 minutes (33), Including time spent: (History, physical, documentation, review of prior records, independent interpretation of laboratory results and images), Discussing w/Consultants, Arranging Admission or Transfer and Performing Direct Patient Care at Bedside (Airway management) Discharge Plan Dx/Rx/DC Orders Clinical Impression: Acute hypercapnic respiratory failure, Acute alcoholic intoxication in alcoholism (blood level over 0.3), Hypothermia, [place] coma scale score 3-8, at arrival to emergency department Disposition Disposition: Acute Care Hospital [facility]
[2024-03-15] MEDS: Rocuronium Bromide 50 MG/5 ML Vial 75 MG IV (17:26)
[2024-03-15 17:42] LABS: Absolute Lymphocyte Count 1.63 X10^3/uL (0.83-4.51); Absolute Neutrophil Count 5.5 X10^3/uL (2.0-7.7); Basophil# 0.05 X10^3/uL; Basophil% 0.7 % (0-1); Eosinophil# 0.07 X10^3/uL; Eosinophils% 0.9 % (0-5); Hematocrit 42.6 % (37-47); Hemoglobin 13.8 g/dL (12.0-15.0); Lymphocyte # 1.63 X10^3/ul (0.83-4.51); Lymphocyte % 21.5 % (19-41); Mean Corp Hgb Conc 32.4 g/dL (32-36); Mean Corpuscular Hgb 29.3 pg (27.0-32.0); Mean Corpuscular Volume 90.4 fL (81-99); Mean Platelet Vol. 9.5 fl (6.2-12.0); Monocyte# 0.26 X10^3/uL; Monocyte% 3.4 % (0-10); NRBC Flagged by Analyzer 0 % (0-5); Neutrophil # 5.52 X10^3/uL (2.7-7.7); Neutrophil % 72.8 % (47-70); Platelet Count 284 K/mm3 (150-450); RBC Distribution Width CV 13.2 % (11.6-14.6); RBC Distribution Width SD 43.8 fl (35.1-43.9); Red Blood Count 4.71 M/mm3 (4.2-5.4); White Blood Count 7.6 K/mm3 (4.4-11.0)
[2024-03-15 17:44] LABS: Bacteria 0 SEEN /hpf (None Seen); Mucous, Urine 0 SEEN /hpf (<or=2+); Red Blood Cells-Urine 0 SEEN /hpf (0-5); Squamous Epithelial Cells - UA 0 SEEN /hpf (5-10); White Blood Cells 0 SEEN /hpf (0-5)
[2024-03-15] MEDS: fentaNYL drip 100 ML 2.5 MCG CONT INF (17:45)
--- NOTE | 2024-03-15 17:53 | RAD_ITS ---
STUDY: X-RAY - ABDOMEN/PELVIS REASON FOR EXAM: Female, 48 years old. NG Insertion TECHNIQUE: Frontal view COMPARISON: None. FINDINGS: Possible focal left basilar infiltrate. There is an unremarkable bowel gas pattern. There is no demonstrated free abdominal air. Nasogastric tube in the stomach. Normal soft tissue structures. Normal visualized osseous structures. RAD/Abdomen Single View (Portable) IMPRESSION: Small focal left basilar infiltrate. Electronically Signed: Carlos Yeager DO at 19:11 EDT Reading Location ID and State: [facility] / [place] Tel [phone], Service support ,
[2024-03-15 17:56] LABS: Base Excess -1 mmol/L (-2 to +2); Bicarbonate 25.6 mmol/L (22-26); Blood Gas Specimen Type ART; Mode AC; O2 Delivery Device Adult Vent; PEEP 5; PO2 174 mmHG (75-100); RR 12; SITE Not entered; SO2 99 % (95-99); Total Carbon Dioxide 27 mmol/L; pCO2 54.9 mmHg (35-45); pH 7.28 (7.35-7.45)
[2024-03-15 17:57] LABS: Lactic Acid 1.7 mmol/L (0.4-1.9)
[2024-03-15 17:57] LABS: Color, Urine Yellow (Yellow); Glucose, Dipstick Normal (Normal); Ketone-Dipstick Negative (Negative); Leukocyte Esterase-Dipstick Negative /ul (Negative); Nitrite-Dipstick Negative (Negative); Occult Blood-Urine Negative /ul (Negative); Protein-Dipstick Negative (Negative); Urine Bilirubin Dipstick Negative (Negative); Urine Clarity Clear (Clear); Urine Urobilinogen Normal (Normal); Urine pH 6.5 (5.0 - 8.0)
[2024-03-15 18:04] LABS: International Normalized Ratio 0.9; Prothrombin Time (Protime)PT. 12.6 SECONDS (11.7-14.9)
[2024-03-15 18:05] LABS: Partial Thromboplast Time 27.9 Seconds (24.1-36.2)
[2024-03-15] MEDS: fentaNYL 100 MCG/2 ML Ampul 50 MCG IV (18:17)
[2024-03-15] MEDS: Propofol 10MG/Ml 1,000 MG/100 ML Bottle 5.1 MG CONT INF (18:25)
[2024-03-15 18:29] LABS: ALB/GLOB Ratio 0.7 RATIO (0.9-2.4); AST(SGOT) 9 U/L (15-37); Alanine Aminotransfer ALT/SGPT 25 U/L (13-56); Alkaline Phosphatase 99 U/L (45-117); Anion Gap 6 (5-15); BUN 12 mg/dL (7-18); BUN/Creat Ratio 17.2 RATIO (10-20); Calcium,Total 8.5 mg/dL (8.5-10.1); Chloride 107 mmol/L (98-107); EST Glomerular Filtration Rate 95 mL/min (>60); Est Glom Filt Rate - Afr Amer 114 mL/min (>60); Globulin 4.1 g/dL (2.2-4.2); Glucose 127 mg/dL (74-106); Potassium 3.8 mmol/L (3.5-5.1); Protein, Total 7.1 g/dL (6.4-8.2); Sodium Level 135 mmol/L (136-145)
[2024-03-15] MEDS: Propofol 200 MG/20 ML Vial 60 MG IV BOLUS (18:46)
--- NOTE | 2024-03-15 18:59 | ED.RN ---
Warm blankets given to pt, Dr. Stephens aware of pt core temp 95.3. No new orders.
--- NOTE | 2024-03-15 19:08 | PCM.HP.STD ---
HPI - General General Date of Admission: 03/15/24 Date of Service: 03/15/24 Chief Complaint: Drunk and Unresponsive. HPI Narrative THONG NEFF, is a 48 F with a past medical history of being overweight; with BMI of 28.5 this admission, tobacco abuse, depression and chronic EtOH abuse who presents to [facility] ER apparently drunk and unresponsive. Ms. Neff is not a reliable historian as she is intubated and sedated on Propofol so information was gathered from chart, medical staff and computer. According to the records she received bad news in court earlier today and was in her normal coherent [id number] with her last noted to be normal around 1:30 AM. Then later this afternoon her significant other went to check on her and found her unresponsive in their bedroom so he activated EMS. When EMS arrived they noted patient had a GCS of 3 and could not protect her airway. There was apparently no report of a suicide note or any indication she took any other illicit substances. There was also related fever, chills, nausea, vomiting, diarrhea, constipation, chest pain or SOB. In the ER she was noted to have a KAREN of 337 mg/dL consistent with Acute EtOH Intoxication in the setting of Chronic EtOH Abuse complicated by Uncontrolled Depression compounded by Respiratory Acidosis with pH of 7.27 and PCO2 of 54.9 mmHg present on admission plus Hypothermia with temperature of 95.8 degrees Fahrenheit present on admission and she was then admitted to the ICU for ongoing care for a stay that is expected to extend beyond 2 midnights. [facility] Medical History unable to obtain Allergy/AdvReac Type Severity Reaction Status Date / Time Unable to Assess Allergy Verified 03/15/24 17:13 Social History Smoking Status: Smoker, status unknown Homelessness:: Unspecified ROS ROS Narrative Full ROS was not possible at this time as this patient is intoxicated, intubated and sedated on the ventilator. Vital Signs Vital Signs Vital Signs: 03/15/24 17:13 03/15/24 17:22 03/15/24 17:23 Temperature 96.7 F L Temperature Source Axillary Pulse Rate 73 L Respiratory Rate 16 L 12 Respiratory Pattern Normal Apnea Blood Pressure 104/71 H Blood Pressure Mean 82 Pulse Ox 100 Oxygen Delivery Method Ambu-Bag Oxygen Flow Rate (L/min) 15 Fraction of Inspired Oxygen (FIO2) 60 03/15/24 17:37 03/15/24 17:42 03/15/24 18:08 Temperature Temperature Source Pulse Rate 91 102 H Respiratory Rate 12 15 Respiratory Pattern Blood Pressure 131/89 H Blood Pressure Mean 103 Pulse Ox 99 98 Oxygen Delivery Method Oxygen Flow Rate (L/min) Fraction of Inspired Oxygen (FIO2) 60 50 03/15/24 18:12 03/15/24 18:30 03/15/24 19:00 Temperature 95.3 F L 95.2 F L Temperature Source Core Core Pulse Rate 99 76 91 Respiratory Rate 23 H 14 15 Respiratory Pattern Blood Pressure 133/90 H 130/111 H 135/74 H Blood Pressure Mean 104 117 94 Pulse Ox 99 94 98 Oxygen Delivery Method Mechanical Ventilator Mechanical Ventilator Oxygen Flow Rate (L/min) 30 Fraction of Inspired Oxygen (FIO2) 50 Weight Weight: 187 lb 6.287 oz Body Mass Index (BMI) 28.5 Physical Exam Const Constitutional Narrative: Patient is intubated and sedated on ventilator. HEENT normocephalic, head/scalp atraumatic and hearing grossly normal bilaterally HEENT Narrative: ETT in place. Eyes PERRL and EOMs intact bilaterally Neck no lymphadenopathy and supple Resp normal respiratory effort, no retractions, no use of accessory muscles and clear to auscultation bilaterally Cardio regular rate and regular rhythm GI normal to inspection, nondistended, normoactive bowel sounds, soft to palpation, non-tender and non-distended Extremity normal to inspection, full ROM and no clubbing, cyanosis or edema Skin Skin Narrative: Patient has no evidence of rash, abscess or jaundice. Neuro Neuro Narrative: Patient is intubated and sedated on ventilator. Results Medical Records Data Attestation: I reviewed the patient's medical records Lab / Micro Data Attestation: I reviewed the patient's lab results. 03/15/24 17:20 03/15/24 17:20 Labs: Laboratory Results - last 24 hr 03/15/24 17:20: WBC 7.6, RBC 4.71, Hgb 13.8, Hct 42.6, MCV 90.4, MCH 29.3, MCHC 32.4, RDW Std Deviation 43.8, RDW Coeff of Dali 13.2, Plt Count 284, MPV 9.5, Immature Gran % (Auto) 0.700, Neut % (Auto) 72.8 H, Lymph % (Auto) 21.5, [place] % (Auto) 3.4, Eos % (Auto) 0.9, Baso % (Auto) 0.7, Absolute Neuts (auto) 5.5, Absolute Lymphs (auto) 1.63, Nucleated RBC % 0, PT 12.6, INR 0.9, APTT 27.9, Sodium 135 L, Potassium 3.8, Chloride 107, Carbon Dioxide 22.0, Anion Gap 6, BUN 12, Creatinine 0.70, Est GFR (MDRD) Af Amer 114, Est GFR (MDRD) Non-Af 95, BUN/Creatinine Ratio 17.2, Glucose 127 H, Lactic Acid 1.7, Calcium 8.5, Total Bilirubin 0.30, AST 9 L, ALT 25, Alkaline Phosphatase 99, Total Protein 7.1, Albumin 3.0 L, Globulin 4.1, Albumin/Globulin Ratio 0.7 L, Ethyl Alcohol 337.0 H* 03/15/24 17:29: Urine Color Yellow, Urine Clarity Clear, Urine pH 6.5, Ur Specific [place] 1.010, Urine Protein Negative, Urine Glucose (UA) Normal, Urine Ketones Negative, Urine Occult Blood Negative, Urine Nitrite Negative, Urine Bilirubin Negative, Urine Urobilinogen Normal, Ur Leukocyte Esterase Negative, Urine RBC 0 SEEN, Urine WBC 0 SEEN, Ur Squamous Epith Cells 0 SEEN, Urine Bacteria 0 SEEN, Urine Mucus 0 SEEN, Ur Drug Screen Comment ABG Data ABG results: ABG 03/15/24 17:52 Specimen Type ART Sample Site Not entered pH 7.28 L Bicarbonate Actual 25.6 Total CO2 27 Base Excess -1 O2 Saturation 99 O2 % 60.0 ABG pCO2 54.9 H ABG pO2 174 H Respiration Rate 12 O2 Delivery Device Adult Vent Vent Mode AC Tidal Volume 450.0 POC PEEP 5 Rhythm Strip Rhythm Strip: Sinus Rhythm Rate: 72 Ectopy: None Imaging Radiology Impression Brain CT 03/15/24 17:13 IMPRESSION: Normal unenhanced CT scan of the brain. Electronically Signed: Carlos Yeager DO at 18:14 EDT Reading Location ID and State: [facility] / [place] Tel [phone], Service support , Assessment & Plan Assessment/Plan (1) Acute alcoholic intoxication in alcoholism (blood level over 0.3): QUALIFIERS: Complication of substance-induced condition: with delirium Qualified Code(s): F10.221 - Alcohol dependence with intoxication delirium; Y90.0 - Blood alcohol level of less than 20 mg/100 ml (2) Acute hypercapnic respiratory failure: (3) [place] coma scale score 3-8, at arrival to emergency department: (4) Hypothermia: QUALIFIERS: Encounter type: initial encounter Qualified Code(s): T68.XXXA - Hypothermia, initial encounter (5) Uncontrolled depression: (6) Tobacco abuse: (7) Overweight (BMI 25.0-29.9): PLAN: Plan 1. Acute EtOH Intoxication; evidenced by KAREN of 337 mg/dL present on admission in the setting of Chronic EtOH Abuse - Admit to ICU. Continue ventilator support for now and wean as tolerated. Finally, we will start Phenobarbital taper at decreased dose with patient simultaneously on Propofol drip. I spoke with pharmacist about this plan. 2. Respiratory Acidosis with pH of 7.27 and PC02 of 54.9 mmHg present on admission plus Hypothermia with temperature of 95.8 degrees Fahrenheit present on admission arising from #1 - Wean ventilator support as tolerated and recheck ABG to ensure improvement. 3. Uncontrolled Depression after bad news in court earlier today apparently triggering excessive EtOH intake leading to #1 - Noted. Hopefully, patient will be able to give more details after she is extubated. 4. History of Tobacco Abuse complicating #1 - #3 - Tobacco Cessation will be strongly encouraged when patient is coherent with Nicotine patch ordered to control cravings. 5. Overweight; with BMI of 28.5 this admission - Weight loss will be recommended. Check TSH. 6. DVT/GI prophylaxis - Lovenox 40 mg sq daily plus SCD's. Protonix 40 mg IV daily. Total time: Approximately 55 minutes. Charges/Coding Visit Charges Inpatient E&M: 88050 Init Hosp L2
[2024-03-15 19:47] LABS: CPK Total, Creatine Kinase 65 U/L (26-192); Triglycerides 191 mg/dL
[2024-03-15 19:50] LABS: Thyroid Stim Hormone (TSH) 0.979 uIU/mL (0.358-3.740)
[2024-03-15 19:55] LABS: Amphetamine Urine VISTA NEGATIVE (<1000 ng/mL); Barbiturate Urine VISTA NEGATIVE (< 200 ng/mL); Benzodiazepine Urine VISTA NEGATIVE (< 200 ng/mL); Cocaine Urine VISTA NEGATIVE (< 300 ng/mL); Ecstacy Urine VISTA NEGATIVE (< 500 ng/mL); Methadone Urine VISTA NEGATIVE (< 300 ng/mL); PCP Urine VISTA NEGATIVE (< 25 ng/mL); THC Urine VISTA POSITIVE (< 50 ng/mL); Vista UDS pH Range 6
--- NOTE | 2024-03-15 20:07 | ED.RN ---
Pt restrained and intubated, per Dr. Angelo nathan @ this time.
[2024-03-15 21:20] LABS: Base Excess -3 mmol/L (-2 to +2); Bicarbonate 21.1 mmol/L (22-26); Blood Gas Specimen Type ART; Mode AC; O2 Delivery Device Adult Vent; PEEP 5; PO2 126 mmHG (75-100); RR 14; SITE L Radial; SO2 99 % (95-99); Total Carbon Dioxide 22 mmol/L; pCO2 30.1 mmHg (35-45); pH 7.45 (7.35-7.45)
[2024-03-15] MEDS: Pantoprazole Sodium 40 MG in 0.9% Normal Saline (100mL MB+) 100 ML 330 MG IV (21:27)
[2024-03-15] MEDS: 0.9% Saline Lock 10 ML Syringe IV (21:27)
[2024-03-15] MEDS: Phenobarbital 32.4 MG Tablet 64.8 MG PO (21:27)
[2024-03-15] MEDS: Chlorhexidine 15 ML PO (21:27)
[2024-03-15 22:28] LABS: Lactic Acid 2.7 mmol/L (0.4-1.9)
--- NOTE | 2024-03-15 22:29 | NURSING ---
Pt admitted to the floor with multiple necklaces and rings on. Black chain necklace, black string w/ ring, necklace with significant other's name on it, and necklace with words his fountain taken off of patient. Left and right hand rings (2 total) removed as well. ED sent up upper dentures and two sets of gold earrings also. All belongings in med drawer and locked.
[2024-03-15] MEDS: 0.9% Normal Saline (1000mL) 1,000 ML 100 ML IV (23:26)
[2024-03-16] VITALS (18 sets, daily range): BP systolic 79–130; BP diastolic 55–78; PULSE 73–95; RESP 12–20; TEMP 36.2–37.2; O2SAT 90–98; BMI 27.5
[2024-03-16] MEDS: CHLORHEXIDINE GLUC 2% CLOTH 1 EACH TOWELETTE TOPICAL (01:02)
[2024-03-16] MEDS: Phenobarbital 32.4 MG Tablet 64.8 MG PO ×3 (01:02→07:51)
[2024-03-16 01:45] LABS: Reflex Lactate? Y
[2024-03-16 03:21] LABS: Absolute Lymphocyte Count 2.64 X10^3/uL (0.83-4.51); Absolute Neutrophil Count 3.3 X10^3/uL (2.0-7.7); Basophil# 0.05 X10^3/uL; Basophil% 0.8 % (0-1); Eosinophil# 0.08 X10^3/uL; Eosinophils% 1.2 % (0-5); Hematocrit 38.3 % (37-47); Hemoglobin 12.6 g/dL (12.0-15.0); Lymphocyte # 2.64 X10^3/ul (0.83-4.51); Lymphocyte % 40.2 % (19-41); Mean Corp Hgb Conc 32.9 g/dL (32-36); Mean Corpuscular Hgb 29.6 pg (27.0-32.0); Mean Corpuscular Volume 90.1 fL (81-99); Monocyte# 0.42 X10^3/uL; Monocyte% 6.4 % (0-10); NRBC Flagged by Analyzer 0 % (0-5); Neutrophil # 3.34 X10^3/uL (2.7-7.7); Neutrophil % 50.8 % (47-70); Platelet Count 269 K/mm3 (150-450); RBC Distribution Width CV 13.5 % (11.6-14.6); RBC Distribution Width SD 44.5 fl (35.1-43.9); Red Blood Count 4.25 M/mm3 (4.2-5.4); White Blood Count 6.6 K/mm3 (4.4-11.0)
[2024-03-16 03:40] LABS: Blood Gas Specimen Type VEN; O2 Delivery Device Adult Vent; PEEP 5; RR 14; SITE Not entered; VBG BASE EXCESS 1 mmol/L (-1.0-3.5); VBG Bicarbonate 24 mmol/L (22-26); VBG PO2 122 mmHg (25-40); VBG SO2 99 % (50-70); VBG TCO2 25 mmol/L (23-33); VBG pCO2 29.7 mmHg (41-51); VBG pH 7.51 (7.32-7.42)
[2024-03-16 03:43] LABS: ALB/GLOB Ratio 0.9 RATIO (0.9-2.4); AST(SGOT) 5 U/L (15-37); Alanine Aminotransfer ALT/SGPT 21 U/L (13-56); Albumin, Serum 2.9 g/dL (3.2-5.0); Alkaline Phosphatase 84 U/L (45-117); Anion Gap 7 (5-15); BUN 14 mg/dL (7-18); BUN/Creat Ratio 23.6 RATIO (10-20); Calcium,Total 8.2 mg/dL (8.5-10.1); Chloride 111 mmol/L (98-107); Creatinine, Serum 0.59 mg/dL (0.55-1.02); EST Glomerular Filtration Rate 114 mL/min (>60); Est Glom Filt Rate - Afr Amer 138 mL/min (>60); Estimated Creatinine Clearance 118.53 ml/min; Globulin 3.2 g/dL (2.2-4.2); Glucose 92 mg/dL (74-106); Magnesium 1.6 mg/dL (1.6-2.6); Potassium 3.7 mmol/L (3.5-5.1); Protein, Total 6.1 g/dL (6.4-8.2); Sodium Level 143 mmol/L (136-145)
[2024-03-16 03:50] LABS: Phosphorus 3.3 mg/dL (2.5-4.9)
[2024-03-16 04:02] LABS: Lactic Acid 3.4 mmol/L (0.4-1.9)
[2024-03-16] MEDS: fentaNYL drip 100 ML 10 MCG CONT INF (04:22)
[2024-03-16] MEDS: TITRATION PARAMETER CHANGE 1 EACH IV (05:10)
--- NOTE | 2024-03-16 05:55 | RAD_ITS ---
STUDY: X-RAY CHEST REASON FOR EXAM: Female, 48 years old. Intubated for EtOH Intoxication. TECHNIQUE: Single AP portable view of the chest. COMPARISON: 03/15/2024 FINDINGS: Endotracheal tube with the tip approximately 3 cm above the abby. Nasogastric tube with the tip below diaphragm. Status post anterior cervical discectomy and fusion lower cervical spine. The lungs are clear and expanded. There is no demonstrated pleural abnormality. Normal size heart. Normal mediastinum and aura. Normal visualized pulmonary arteries. Normal visualized aortic arch and descending thoracic aorta. Normal visualized thoracic spine. Normal visualized ribs, clavicles, and shoulders. There is no demonstrated abnormality of the visualized soft tissue structures of the upper abdomen. RAD/Chest 1 View (Portable) IMPRESSION: Endotracheal tube with the tip above the abby. Nasogastric tube with the tip above the diaphragm. No active disease. Electronically Signed: Xavier Martin MD at 23:14 EDT ,
[2024-03-16] MEDS: Propofol 10MG/Ml 1,000 MG/100 ML Bottle 9.3 MG CONT INF (06:13)
--- NOTE | 2024-03-16 06:52 | PCM.PN.HOSP ---
Reason for Visit Reason for Visit: Altered mental status Objective Data Objective Data Vital Signs: Vital Signs Temp Pulse Resp BP Pulse Ox O2 Del Method O2 Flow Rate 99.0 F 94 14 96/68 97 Mechanical Ventilator 30 03/16/24 06:00 03/16/24 06:00 03/16/24 06:00 03/16/24 06:15 03/16/24 06:00 03/16/24 06:00 03/15/24 18:30 FiO2 25 03/16/24 06:00 Oxygen Flow Rate (L/min) 30 Oxygen Delivery Method Mechanical Ventilator Weight: 77.6 kg Body Mass Index (BMI) 27.5 Intake & Output: Intake and Output for Last 24 Hours 03/14/24 03/15/24 03/16/24 23:59 23:59 23:59 Intake Total 1641.77 / 1646.17 215.78 / 215.78 Output Total 1000 / 1300 800 / 800 Balance 641.77 / 346.17 -584.22 / -584.22 Lab / Micro Data 03/16/24 03:10 03/16/24 03:10 Labs: Laboratory Results - last 24 hr 03/15/24 17:20: WBC 7.6, RBC 4.71, Hgb 13.8, Hct 42.6, MCV 90.4, MCH 29.3, MCHC 32.4, RDW Std Deviation 43.8, RDW Coeff of Dali 13.2, Plt Count 284, MPV 9.5, Immature Gran % (Auto) 0.700, Neut % (Auto) 72.8 H, Lymph % (Auto) 21.5, Ray % (Auto) 3.4, Eos % (Auto) 0.9, Baso % (Auto) 0.7, Absolute Neuts (auto) 5.5, Absolute Lymphs (auto) 1.63, Nucleated RBC % 0, PT 12.6, INR 0.9, APTT 27.9, Sodium 135 L, Potassium 3.8, Chloride 107, Carbon Dioxide 22.0, Anion Gap 6, BUN 12, Creatinine 0.70, Est GFR (MDRD) Af Amer 114, Est GFR (MDRD) Non-Af 95, BUN/Creatinine Ratio 17.2, Glucose 127 H, Lactic Acid 1.7, Calcium 8.5, Total Bilirubin 0.30, AST 9 L, ALT 25, Alkaline Phosphatase 99, Total Protein 7.1, Albumin 3.0 L, Globulin 4.1, Albumin/Globulin Ratio 0.7 L, TSH 0.979, Ethyl Alcohol 337.0 H* 03/15/24 17:29: Urine Color Yellow, Urine Clarity Clear, Urine pH 6.5, Ur Specific [place] 1.010, Urine Protein Negative, Urine Glucose (UA) Normal, Urine Ketones Negative, Urine Occult Blood Negative, Urine Nitrite Negative, Urine Bilirubin Negative, Urine Urobilinogen Normal, Ur Leukocyte Esterase Negative, Urine RBC 0 SEEN, Urine WBC 0 SEEN, Ur Squamous Epith Cells 0 SEEN, Urine Bacteria 0 SEEN, Urine Mucus 0 SEEN, Urine Opiates Screen NEGATIVE, Urine Methadone Screen NEGATIVE, Ur Barbiturates Screen NEGATIVE, Ur Phencyclidine Scrn NEGATIVE, Ur Amphetamines Screen NEGATIVE, MDMA (Ecstasy) Screen NEGATIVE, U Benzodiazepines Scrn NEGATIVE, Urine Cocaine Screen NEGATIVE, U Cannabinoids Screen POSITIVE H, Ur Drug Screen Comment 03/15/24 19:00: Total Creatine Kinase 65, Triglycerides 191 03/15/24 21:35: Lactic Acid 2.7 H* 03/16/24 03:10: WBC 6.6, RBC 4.25, Hgb 12.6, Hct 38.3, MCV 90.1, MCH 29.6, MCHC 32.9, RDW Std Deviation 44.5 H, RDW Coeff of Dali 13.5, Plt Count 269, MPV 9.0, Immature Gran % (Auto) 0.600, Neut % (Auto) 50.8, Lymph % (Auto) 40.2, Ray % (Auto) 6.4, Eos % (Auto) 1.2, Baso % (Auto) 0.8, Absolute Neuts (auto) 3.3, Absolute Lymphs (auto) 2.64, Nucleated RBC % 0, Sodium 143, Potassium 3.7, Chloride 111 H, Carbon Dioxide 25.0, Anion Gap 7, BUN 14, Creatinine 0.59, Estim Creat Clear Calc 118.53, Est GFR (MDRD) Af Amer 138, Est GFR (MDRD) Non-Af 114, BUN/Creatinine Ratio 23.6 H, Glucose 92, Lactic Acid 3.4 H*, Calcium 8.2 L, Phosphorus 3.3, Magnesium 1.6, Total Bilirubin 0.30, AST 5 L, ALT 21, Alkaline Phosphatase 84, Total Protein 6.1 L, Albumin 2.9 L, Globulin 3.2, Albumin/Globulin Ratio 0.9, Ethyl Alcohol 131.0 ABG Data ABG results: ABG 03/15/24 03/15/24 03/16/24 17:52 21:16 03:33 Specimen Type ART ART INDY Sample Site Not entered L Radial Not entered pH 7.28 L 7.45 Bicarbonate Actual 25.6 21.1 L Total CO2 27 22 Base Excess -1 -3 L O2 Saturation 99 99 O2 % 60.0 50.0 25.0 ABG pCO2 54.9 H 30.1 L ABG pO2 174 H 126 H Miguel Test N/A VBG pH 7.51 H VBG pO2 122 H VBG HCO3 24 VBG Total CO2 25 VBG O2 Sat (Calc) 99 H VBG Base Excess 1 POC Mix VBG pCO2 Pt Tmp 29.7 L Respiration Rate 12 14 14 O2 Delivery Device Adult Vent Adult Vent Adult Vent Vent Mode AC AC Tidal Volume 450.0 450.0 420.0 POC PEEP 5 5 5 Radiography Diagnostic Testing: Radiology Impression Brain CT 03/15/24 17:13 IMPRESSION: Normal unenhanced CT scan of the brain. Electronically Signed: Carlos Yeager DO at 18:14 EDT Reading Location ID and State: [facility] / [place] Tel [phone], Service support , Chest X-Ray 03/15/24 17:15 IMPRESSION: Possible left basilar infiltrate. Electronically Signed: Carlos Yeager DO at 19:15 EDT , KUB X-Ray 03/15/24 17:53 IMPRESSION: Small focal left basilar infiltrate. Electronically Signed: Carlos Yeager DO at 19:11 EDT , Rhythm Strip Rhythm Strip: Sinus Rhythm Rate: 72 Ectopy: None Social Homelessness:: Unspecified Assessment & Plan Assessment/Plan PLAN: Plan Acute hypercapnic respiratory failure secondary to alcohol intoxication -Blood alcohol level on presentation was 337 -ABG on presentation showed a pH of 7.27 with a pCO2 of 54.9 - intubated in the emergency department on 03/15/2024 for altered mental status with inability to protect her airway -Unclear if this was an intentional alcohol overdose - reports she had been [place] [facility] earlier that day and received bad news triggering the above -Wean mechanical ventilation as able -Sedation vacations per protocol with ventilation weaning -Continue sedation Acute alcohol intoxication -Unclear what her baseline uses -Patient was therefore started on phenobarb taper -Will continue thiamine and folate -Withdrawal medications ordered as needed for after extubation Lactic acidosis -Likely related to the above -Should clear cleared quickly History of depression -Unclear if the above alcohol overdose was intentional or accidental -Will need to further assess after extubation and potentially have crisis evaluate the patient -Patient does not take any medications at baseline for depression Tobacco abuse -Cessation is recommended and will discuss further work extubated -Nicotine patch available DVT/GI prophylaxis -Continue Lovenox subcu daily -Continue Protonix 40 mg daily CODE STATUS -Full code but unable to verify due to patient's condition on presentation Charges/Coding Visit Charges Inpatient E&M: 34330 Subs Hosp L2
[2024-03-16] MEDS: Thiamine Hydrochloride 100 MG Tablet PO (07:51)
[2024-03-16] MEDS: Folic Acid 1 MG Tablet PO (07:51)
[2024-03-16] MEDS: Chlorhexidine 15 ML PO (07:51)
[2024-03-16] MEDS: Enoxaparin 40 MG/0.4 ML Syringe SC (07:51)
[2024-03-16] MEDS: Pantoprazole Sodium 40 MG in 0.9% Normal Saline (100mL MB+) 100 ML 330 MG IV (09:39)
[2024-03-16 10:25] LABS: Alcohol, Blood (Medical)-Serum < 3.0 mg/dL
[2024-03-16] MEDS: Ondansetron 4 MG/2 ML Vial IV (11:12)
--- NOTE | 2024-03-16 12:27 | PCMCONS.TICU ---
HPI Consult Data Date of Consult: 03/16/24 HPI Narrative HPI Narrative: THONG NEFF, is a 48 F who presents inebriated/ intoxicated apparently due to acute alcohol consumption, required intubation in ED for failure to protect airway. Reportedly she was dealing with some unwelcome news of her past failed marriage. No reported history of alcohol abuse or similar presentations. [facility] Medical History unable to obtain Home Medications ?Medication ?Instructions ?Recorded ?Last Taken ?Type aripiprazole (2 month) 720 mg/2.4 720 mg IM .q8 weeks bipolar 03/16/24 Unknown History mL susp, extended rel IM syringe (Abilify Asimtufii) atorvastatin 10 mg tablet 10 mg PO DAILY Bp 03/16/24 Unknown History bupropion HCl 150 mg tablet,12 hr 150 mg PO DAILY bipolar 03/16/24 Unknown History sustained-release bupropion HCl 300 mg 24 hr tablet, 300 mg PO DAILY bipolar 03/16/24 Unknown History extended release cetirizine 10 mg tablet 10 mg PO DAILY allergies 03/16/24 Unknown History clonazepam 1 mg tablet 1 mg PO 4X/DAY PRN PRN anxiety 03/16/24 Unknown History docusate sodium 100 mg capsule 100 mg PO DAILY constpation 03/16/24 Unknown History (Stool Softener) estradiol 0.5 mg tablet 0.5 mg PO DAILY hormone 03/16/24 Unknown History hydroxyzine pamoate 25 mg capsule 25 mg PO TID depression 03/16/24 Unknown History lisinopril 5 mg tablet 5 mg PO DAILY BP 03/16/24 Unknown History lumateperone 21 mg capsule 21 mg PO DAILY bipolar 03/16/24 Unknown History (Caplyta) meloxicam 7.5 mg tablet 7.5 mg PO BID pain 03/16/24 Unknown History metformin 500 mg tablet 500 mg PO BID diabetes 03/16/24 Unknown History ondansetron 4 mg disintegrating 4 mg PO Q8 nausea 03/16/24 Unknown History tablet pantoprazole 40 mg tablet,delayed 40 mg PO DAILY indegestion 03/16/24 Unknown History release pregabalin 150 mg capsule 150 mg PO TID pain 03/16/24 Unknown History vortioxetine 20 mg tablet 20 mg PO DAILY depression 03/16/24 Unknown History (Trintellix) Allergy/AdvReac Type Severity Reaction Status Date / Time Unable to Assess Allergy Verified 03/15/24 17:13 Social History Smoking Status: Smoker, status unknown Homelessness:: Unspecified ROS Review of Systems ROS Unobtainable: due to encephalopathy and due to endotracheal tube Objective Data Objective Data Vital Signs: Vital Signs Last response Temperature 36.8 C 03/16/24 12:00 Temperature Source Temporal 03/16/24 12:00 Pulse Rate 82 03/16/24 12:00 Pulse Strength Weak (1+) 03/16/24 08:08 Respiratory Rate 16 03/16/24 12:00 Respiratory Effort Non-Labored 03/16/24 12:01 Respiratory Depth Normal 03/16/24 12:01 Respiratory Pattern Normal 03/16/24 12:01 Blood Pressure 124/68 H 03/16/24 12:00 Blood Pressure Mean 86 03/16/24 12:00 Blood Pressure Source Monitor 03/16/24 12:00 Blood Pressure Position Sitting 03/16/24 12:00 Blood Pressure Location Right Arm 03/16/24 12:00 Pulse Ox 97 03/16/24 12:00 Oxygen Delivery Method Room Air 03/16/24 12:01 Oxygen Flow Rate (L/min) 30 03/15/24 18:30 Fraction of Inspired Oxygen (FIO2) 25 03/16/24 09:00 I&O: I&O Last 24 Hours 03/15/24 03/16/24 03/16/24 23:59 11:59 23:59 Intake Total 1641.77 / 1646.17 1521.08 / 1521.08 Output Total 1000 / 1300 800 / 950 150 / 950 Balance 641.77 / 346.17 721.08 / 571.08 -150 / 571.08 I&O: Total Stay 03/15/24 17:12 thru 03/16/24 12:00 Intake Total 3162.85 Output Total 1950 Balance 1212.85 Current Meds Ordered / Administered: Current meds ordered / Administered Generic Name Dose Route Start Last Admin Trade Name Freq PRN Reason Stop Dose Admin Chlorhexidine Gluconate 1 each 03/16/24 10:00 03/16/24 01:02 Chlorhexidine Gluc 2% Cloth 1 Each [place] TOPICAL 1 each DAILY THA Administration Dicyclomine HCl 20 mg 03/15/24 20:36 Dicyclomine 10 Mg Capsule PO Q6H PRN PRN abdominal discomfort Enoxaparin Sodium 40 mg 03/16/24 10:00 03/16/24 07:51 Enoxaparin 40 Mg/0.4 Ml Syringe SC 40 mg DAILY THA Administration Folic Acid 1 mg 03/16/24 08:00 03/16/24 07:51 Folic Acid 1 Mg Tablet PO 1 mg DAILY@0800 THA Administration Gabapentin 300 mg 03/15/24 20:36 Gabapentin 300 Mg Capsule PO Q8H PRN PRN moderate to severe anxiety Pantoprazole Sodium 40 mg/ 110 mls @ 330 mls/hr 03/15/24 22:00 03/16/24 09:59 Sodium Chloride IV Infused Q12 THA Infusion Sodium Chloride 100 mls @ 15 mls/hr 03/15/24 20:36 IV .Q6H40M PRN Saline Flush Sodium Chloride 100 mls @ 15 mls/hr 03/15/24 20:36 IV .Q6H40M PRN Additional IVPB Infusion Loperamide HCl 2 mg 03/15/24 20:36 Loperamide 2 Mg Capsule PO Q4H PRN PRN Loose Stools Nicotine 14 mg 03/16/24 10:00 03/16/24 07:51 Nicotine 14 Mg Patch TD 14 mg DAILY THA Administration Ondansetron HCl 4 mg 03/15/24 20:34 03/16/24 11:12 Ondansetron 4 Mg/2 Ml Vial IV 4 mg Q8H PRN PRN Administration NAUSEA/VOMITING Ondansetron HCl 8 mg 03/15/24 20:36 Ondansetron 8 Mg Tablet PO Q8H PRN PRN NAUSEA Promethazine HCl 25 mg 03/15/24 20:34 Promethazine 25 Mg/Ml Syringe IM Q6H PRN PRN Breakthrough Nausea/Vomiting Sodium Chloride 10 - 40 ml 03/15/24 20:36 03/15/24 21:27 0.9% Saline Lock 10 Ml Syringe IV 10 ml UD PRN Administration SALINE FLUSH Thiamine HCl 100 mg 03/16/24 08:00 03/16/24 07:51 Thiamine Hydrochloride 100 Mg Tablet PO 100 mg DAILYCM THA Administration Physical Exam Const average body habitus and well nourished General Appearance: patient mechanically ventilated Orientation / Consciousness: awake and lethargic Neck full ROM Resp normal respiratory effort Cardio regular rate Lab / Micro Data Attestation: I reviewed the patient's lab results. 03/16/24 03:10 03/16/24 03:10 Labs: Laboratory Results - last 24 hr 03/15/24 17:20: WBC 7.6, RBC 4.71, Hgb 13.8, Hct 42.6, MCV 90.4, MCH 29.3, MCHC 32.4, RDW Std Deviation 43.8, RDW Coeff of Dali 13.2, Plt Count 284, MPV 9.5, Immature Gran % (Auto) 0.700, Neut % (Auto) 72.8 H, Lymph % (Auto) 21.5, [place] % (Auto) 3.4, Eos % (Auto) 0.9, Baso % (Auto) 0.7, Absolute Neuts (auto) 5.5, Absolute Lymphs (auto) 1.63, Nucleated RBC % 0, PT 12.6, INR 0.9, APTT 27.9, Sodium 135 L, Potassium 3.8, Chloride 107, Carbon Dioxide 22.0, Anion Gap 6, BUN 12, Creatinine 0.70, Est GFR (MDRD) Af Amer 114, Est GFR (MDRD) Non-Af 95, BUN/Creatinine Ratio 17.2, Glucose 127 H, Lactic Acid 1.7, Calcium 8.5, Total Bilirubin 0.30, AST 9 L, ALT 25, Alkaline Phosphatase 99, Total Protein 7.1, Albumin 3.0 L, Globulin 4.1, Albumin/Globulin Ratio 0.7 L, TSH 0.979, Ethyl Alcohol 337.0 H* 03/15/24 17:29: Urine Color Yellow, Urine Clarity Clear, Urine pH 6.5, Ur Specific [place] 1.010, Urine Protein Negative, Urine Glucose (UA) Normal, Urine Ketones Negative, Urine Occult Blood Negative, Urine Nitrite Negative, Urine Bilirubin Negative, Urine Urobilinogen Normal, Ur Leukocyte Esterase Negative, Urine RBC 0 SEEN, Urine WBC 0 SEEN, Ur Squamous Epith Cells 0 SEEN, Urine Bacteria 0 SEEN, Urine Mucus 0 SEEN, Urine Opiates Screen NEGATIVE, Urine Methadone Screen NEGATIVE, Ur Barbiturates Screen NEGATIVE, Ur Phencyclidine Scrn NEGATIVE, Ur Amphetamines Screen NEGATIVE, MDMA (Ecstasy) Screen NEGATIVE, U Benzodiazepines Scrn NEGATIVE, Urine Cocaine Screen NEGATIVE, U Cannabinoids Screen POSITIVE H, Ur Drug Screen Comment 03/15/24 19:00: Total Creatine Kinase 65, Triglycerides 191 03/15/24 21:35: Lactic Acid 2.7 H* 03/16/24 03:10: WBC 6.6, RBC 4.25, Hgb 12.6, Hct 38.3, MCV 90.1, MCH 29.6, MCHC 32.9, RDW Std Deviation 44.5 H, RDW Coeff of Dali 13.5, Plt Count 269, MPV 9.0, Immature Gran % (Auto) 0.600, Neut % (Auto) 50.8, Lymph % (Auto) 40.2, [place] % (Auto) 6.4, Eos % (Auto) 1.2, Baso % (Auto) 0.8, Absolute Neuts (auto) 3.3, Absolute Lymphs (auto) 2.64, Nucleated RBC % 0, Sodium 143, Potassium 3.7, Chloride 111 H, Carbon Dioxide 25.0, Anion Gap 7, BUN 14, Creatinine 0.59, Estim Creat Clear Calc 118.53, Est GFR (MDRD) Af Amer 138, Est GFR (MDRD) Non-Af 114, BUN/Creatinine Ratio 23.6 H, Glucose 92, Lactic Acid 3.4 H*, Calcium 8.2 L, Phosphorus 3.3, Magnesium 1.6, Total Bilirubin 0.30, AST 5 L, ALT 21, Alkaline Phosphatase 84, Total Protein 6.1 L, Albumin 2.9 L, Globulin 3.2, Albumin/Globulin Ratio 0.9, Ethyl Alcohol 131.0 03/16/24 09:45: Ethyl Alcohol < 3.0 ABG Data ABG results: ABG 03/15/24 03/15/24 03/16/24 17:52 21:16 03:33 Specimen Type ART ART INDY Sample Site Not entered L Radial Not entered pH 7.28 L 7.45 Bicarbonate Actual 25.6 21.1 L Total CO2 27 22 Base Excess -1 -3 L O2 Saturation 99 99 O2 % 60.0 50.0 25.0 ABG pCO2 54.9 H 30.1 L ABG pO2 174 H 126 H Miguel Test N/A VBG pH 7.51 H VBG pO2 122 H VBG HCO3 24 VBG Total CO2 25 VBG O2 Sat (Calc) 99 H VBG Base Excess 1 POC Mix VBG pCO2 Pt Tmp 29.7 L Respiration Rate 12 14 14 O2 Delivery Device Adult Vent Adult Vent Adult Vent Vent Mode AC AC Tidal Volume 450.0 450.0 420.0 POC PEEP 5 5 5 Rhythm Strip Rhythm Strip: Sinus Rhythm Rate: 72 Ectopy: None Imaging Radiology Impression Brain CT 03/15/24 17:13 IMPRESSION: Normal unenhanced CT scan of the brain. Electronically Signed: Carlos Yeager DO at 18:14 EDT , Chest X-Ray 03/15/24 17:15 IMPRESSION: Possible left basilar infiltrate. Electronically Signed: Carlos Yeager DO at 19:15 EDT , KUB X-Ray 03/15/24 17:53 IMPRESSION: Small focal left basilar infiltrate. Electronically Signed: Carlos Yeager DO at 19:11 EDT , Assessment and Plan . Assessment and plan: #acute respiratory failure attributed to alcohol intoxication #acute alcohol intoxication, level ~ 300 suggests significant ingestion but may all be acute and not chronic Plan: 1. proceed with SAT/SBT 2. standard ICU prophylaxis Critical Care Time: 60 minutes The entirety of this encounter was done via Telemedicine
--- NOTE | 2024-03-16 14:54 | DS.PCM_ITS ---
Providers Date of Admission: 03/15/24 Date of Discharge: 03/16/24 Primary Care Physician: Lesley Crespo MD Consultations 03/16/24 08:28 Consult: Coupon Manifest Clerk / Pulmonary Medicine Routine Consulting Provider: Intensivists/Pulmonary Med Reason for Consult: Ventilator management EMERGENT Consult: No MD Notified: Yes Date Notified: 03/16/24 Time Notified: 08:28 Method of Notification: Answering Service Reason For Visit: ACUTE ETOH INTOXICATION, CHRONIC ETOH ABUSE Diagnosis Discharge Diagnosis (1) Acute alcoholic intoxication in alcoholism (blood level over 0.3): Status: Acute Code(s): F10.229 - Alcohol dependence with intoxication, unspecified Qualifiers: Complication of substance-induced condition: with delirium Qualified Code(s): F10.221 - Alcohol dependence with intoxication delirium; Y90.0 - Blood alcohol level of less than 20 mg/100 ml (2) Acute hypercapnic respiratory failure: Status: Acute Code(s): J96.02 - Acute respiratory failure with hypercapnia (3) [place] coma scale score 3-8, at arrival to emergency department: Status: Acute Code(s): R40.2432 - [place] coma scale score 3-8, at arrival to emergency department (4) Hypothermia: Status: Acute Code(s): T68.XXXA - Hypothermia, initial encounter Qualifiers: Encounter type: initial encounter Qualified Code(s): T68.XXXA - Hypothermia, initial encounter (5) Uncontrolled depression: Status: Acute Code(s): F32.A - Depression, unspecified (6) Tobacco abuse: Status: Acute Code(s): Z72.0 - Tobacco use (7) Overweight (BMI 25.0-29.9): Status: Acute Code(s): E66.3 - Overweight Medications at Discharge Home Medications aripiprazole (2 month) 720 mg/2.4 mL susp, extended rel IM syringe (Abilify Asimtufii) 720 mg IM .q8 weeks bipolar 03/16/24 atorvastatin 10 mg tablet 10 mg PO DAILY Bp 03/16/24 bupropion HCl 150 mg tablet,12 hr sustained-release 150 mg PO DAILY bipolar 03/16/24 bupropion HCl 300 mg 24 hr tablet, extended release 300 mg PO DAILY bipolar 03/16/24 cetirizine 10 mg tablet 10 mg PO DAILY allergies 03/16/24 clonazepam 1 mg tablet 1 mg PO 4X/DAY PRN PRN anxiety 03/16/24 docusate sodium 100 mg capsule (Stool Softener) 100 mg PO DAILY constpation 03/16/24 estradiol 0.5 mg tablet 0.5 mg PO DAILY hormone 03/16/24 hydroxyzine pamoate 25 mg capsule 25 mg PO TID depression 03/16/24 lisinopril 5 mg tablet 5 mg PO DAILY BP 03/16/24 lumateperone 21 mg capsule (Caplyta) 21 mg PO DAILY bipolar 03/16/24 meloxicam 7.5 mg tablet 7.5 mg PO BID pain 03/16/24 metformin 500 mg tablet 500 mg PO BID diabetes 03/16/24 ondansetron 4 mg disintegrating tablet 4 mg PO Q8 nausea 03/16/24 pantoprazole 40 mg tablet,delayed release 40 mg PO DAILY indegestion 03/16/24 pregabalin 150 mg capsule 150 mg PO TID pain 03/16/24 vortioxetine 20 mg tablet (Trintellix) 20 mg PO DAILY depression 03/16/24 Hospital Course Operations None Procedures EKG and - (CT brain/chest x-ray/KUB) Summary of Care Provided Minutes Spent on Discharge: 25 Hospital Course: Ms Koehler is a 48-year-old white female who presented to the emergency department at [facility] on 03/15/2020 for for unresponsiveness. She was found to be intoxicated with a blood alcohol level of 337 mg/dL. Evidently, per documentation, she had a court date with regards to her divorce and got bad news in court earlier today but was in her normal coherent state of mind last being known normal at about 1:30 in the morning. Later in the afternoon on the day of presentation her significant other went to check in on her and found her to be unresponsive in the bedroom so we activated EMS. When EMS arrived she was found to have a GCS of 3 and could not protect her airway. She was bagged until her arrival to the emergency department and when she arrived to emergency department a endotracheal tube was placed and she was placed on mechanical ventilation. There were no signs of intentional overdose or any substance use at the time of EMS arrival. Vital signs on presentation showed temperature of 96.7, heart rate 73, respiratory rate 16, blood pressure of 104/71 and pulse ox was 100% with Ambu bag. CBC on arrival was completely unremarkable. Coags were normal. Chemistry panel was unremarkable other than mild hyperglycemia with a blood glucose of 127. Her initial lactic acid was 1.7 however it was repeated and found to be elevated at 3.4. Liver functions were normal. TSH was normal. CK was normal. UA was unremarkable. ABG did show mild respiratory acidosis with a pH of 7.27 and a pCO2 of 54. Toxicology screen was positive for alcohol as noted above and cannabis. CT of the brain was unremarkable. EKG was normal sinus rhythm without any ST-T wave changes concerning for acute ischemia. Chest x-ray showed possible left basilar infiltrate versus atelectasis. KUB showed normal bowel gas pattern with NG tube in the stomach. Given her requirement for intubation she was admitted to the ICU placed on sedation and initially placed on phenobarbital as we are unclear how much alcohol she drinks at baseline. On the a.m. of 03/16/2024 she was mentating well on mechanical ventilation and was able to be extubated. She was able to be weaned to room air and passed a swallow evaluation. Labs remain unremarkable and she was evaluated by crisis. Crisis cleared her for discharge home and made an outpatient plan in case she has any depression or anxiety related to above social situations. She was able to be discharged home in stable condition on 03/16/2024. The patient improved much more quickly than anticipated at the time of admission. Discharge diagnoses: Acute hypercapnic respiratory failure Alcohol intoxication Lactic acidosis Hyperlipidemia Seasonal allergies Hypertension DM-2 GERD Diabetic neuropathy History of depression Tobacco abuse Marijuana abuse Bipolar disorder Physical Exam Const alert, no apparent distress, average body habitus, no limitations and well nourished; Negative for healthy appearing Constitutional Narrative: Middle-aged, white female, intubated on mechanical ventilation, awake and alert and following commands consistently, gesturing that she wants the ET tube out, does not appear toxic, appears much older than stated age General Appearance: cooperative, comfortable, well kempt and well developed Orientation / Consciousness: awake, oriented to person, oriented to place, oriented to time and other Other Details: Patient was reevaluated after extubation for these findings Exam Limitations: no limitations HEENT normocephalic, head/scalp atraumatic, hearing grossly normal bilaterally and moist oral mucous membranes Resp Resp Narrative: Diminished with few scattered end expiratory wheezes Auscultation: wheezes; Negative for rales or rhonchi Cardio regular rate, regular rhythm, S1 normal heart sound, S2 normal heart sound, no murmurs, no rub, no gallops and no clicks GI normal to inspection, nondistended, normoactive bowel sounds, soft to palpation and non-tender Extremity Extremity Narrative: Pedal pulses are 2+, mild clubbing noted in hands, no cyanosis Neuro moves all extremities and no focal motor deficits Neuro Narrative: Follows commands despite intubation and then once extubated patient was alert and oriented x 3 Speech: speech normal Psych affect normal Psych Narrative: Interacts appropriately, very friendly, pleasant, makes good eye contact Medical Records Data Homelessness:: Unspecified Weight / BMI Weight Weight: 77.6 kg Body Mass Index (BMI) 27.5 ABG / Lab / Microbiology Data 03/16/24 03:10 03/16/24 03:10 Laboratory: Laboratory Results - last 24 hr 03/15/24 17:20: WBC 7.6, RBC 4.71, Hgb 13.8, Hct 42.6, MCV 90.4, MCH 29.3, MCHC 32.4, RDW Std Deviation 43.8, RDW Coeff of Dali 13.2, Plt Count 284, MPV 9.5, Immature Gran % (Auto) 0.700, Neut % (Auto) 72.8 H, Lymph % (Auto) 21.5, Lyon % (Auto) 3.4, Eos % (Auto) 0.9, Baso % (Auto) 0.7, Absolute Neuts (auto) 5.5, Absolute Lymphs (auto) 1.63, Nucleated RBC % 0, PT 12.6, INR 0.9, APTT 27.9, S odium 135 L, Potassium 3.8, Chloride 107, Carbon Dioxide 22.0, Anion Gap 6, BUN 12, Creatinine 0.70, Est GFR (MDRD) Af Amer 114, Est GFR (MDRD) Non-Af 95, BUN/Creatinine Ratio 17.2, Glucose 127 H, Lactic Acid 1.7, Calcium 8.5, Total Bilirubin 0.30, AST 9 L, ALT 25, Alkaline Phosphatase 99, Total Protein 7.1, A lbumin 3.0 L, Globulin 4.1, Albumin/Globulin Ratio 0.7 L, TSH 0.979, Ethyl Alcohol 337.0 H* 03/15/24 17:29: Urine Color Yellow, Urine Clarity Clear, Urine pH 6.5, Ur Specific [place] 1.010, Urine Protein Negative, Urine Glucose (UA) Normal, Urine Ketones Negative, Urine Occult Blood Negative, Urine Nitrite Negative, Urine Bilirubin Negative, Urine Urobilinogen Normal, Ur Leukocyte Esterase Negative, Urine RBC 0 SEEN, Urine WBC 0 SEEN, Ur Squamous Epith Cells 0 SEEN, Urine Bacteria 0 SEEN, Urine Mucus 0 SEEN, Urine Opiates Screen NEGATIVE, Urine Methadone Screen NEGATIVE, Ur Barbiturates Screen NEGATIVE, Ur Phencyclidine Scrn NEGATIVE, Ur Amphetamines Screen NEGATIVE, MDMA (Ecstasy) Screen NEGATIVE, U Benzodiazepines Scrn NEGATIVE, Urine Cocaine Screen NEGATIVE, U Cannabinoids Screen POSITIVE H, Ur Drug Screen Comment 03/15/24 19:00: Total Creatine Kinase 65, Triglycerides 191 03/15/24 21:35: Lactic Acid 2.7 H* 03/16/24 03:10: WBC 6.6, RBC 4.25, Hgb 12.6, Hct 38.3, MCV 90.1, MCH 29.6, MCHC 32.9, RDW Std Deviation 44.5 H, RDW Coeff of Dali 13.5, Plt Count 269, MPV 9.0, Immature Gran % (Auto) 0.600, Neut % (Auto) 50.8, Lymph % (Auto) 40.2, Lyon % (Auto) 6.4, Eos % (Auto) 1.2, Baso % (Auto) 0.8, Absolute Neuts (auto) 3.3, Absolute Lymphs (auto) 2.64, Nucleated RBC % 0, Sodium 143, Potassium 3.7, C hloride 111 H, Carbon Dioxide 25.0, Anion Gap 7, BUN 14, Creatinine 0.59, Estim Creat Clear Calc 118.53, Est GFR (MDRD) Af Amer 138, Est GFR (MDRD) Non-Af 114, BUN/Creatinine Ratio 23.6 H, Glucose 92, Lactic Acid 3.4 H*, Calcium 8.2 L, Phosphorus 3.3, Magnesium 1.6, Total Bilirubin 0.30, AST 5 L, ALT 21, Alkaline Phosphatase 84, Total Protein 6.1 L, Albumin 2.9 L, Globulin 3.2, Albumin/Globulin Ratio 0.9, Ethyl Alcohol 131.0 03/16/24 09:45: Ethyl Alcohol < 3.0 Microbiology: Microbiology 03/15/24 17:40 Sputum, Induced/Lukens Gram Stain - Final ABG: ABG 03/15/24 03/15/24 03/16/24 17:52 21:16 03:33 Specimen Type ART ART INDY Sample Site Not entered L Radial Not entered pH 7.28 L 7.45 Bicarbonate Actual 25.6 21.1 L Total CO2 27 22 Base Excess -1 -3 L O2 Saturation 99 99 O2 % 60.0 50.0 25.0 ABG pCO2 54.9 H 30.1 L ABG pO2 174 H 126 H Miguel Test N/A VBG pH 7.51 H VBG pO2 122 H VBG HCO3 24 VBG Total CO2 25 VBG O2 Sat (Calc) 99 H VBG Base Excess 1 POC Mix VBG pCO2 Pt Tmp 29.7 L Respiration Rate 12 14 14 O2 Delivery Device Adult Vent Adult Vent Adult Vent Vent Mode AC AC Tidal Volume 450.0 450.0 420.0 POC PEEP 5 5 5 Radiography Diagnostic Testing: Radiology Impression Brain CT 03/15/24 17:13 IMPRESSION: Normal unenhanced CT scan of the brain. Electronically Signed: Carlos Yeager DO at 18:14 EDT , Chest X-Ray 03/15/24 17:15 IMPRESSION: Possible left basilar infiltrate. Electronically Signed: Carlos Yeager DO at 19:15 EDT , KUB X-Ray 03/15/24 17:53 IMPRESSION: Small focal left basilar infiltrate. Electronically Signed: Carlos Yeager DO at 19:11 EDT , D/C Instructions Discharge Diet: No restrictions Discharge Activity: Return to Normal Activity Meaningful Use Info Meaningful Use Meaningful Use Diagnoses (Choose all that apply): None applicable Ischemic Stroke Statin Dosing Therapy Reference: STATIN DOSE THERAPY REFERENCE: * Patients > 75 years receive moderate or high dose statin therapy. * Patients 75 years or YOUNGER should receive HIGH intensity statin dose unless contraindicated. You will be required to document reason for non-treatment if statin daily dose does not meet guidelines. HIGH DOSE STATIN THERAPY DAILY Atorvastatin > than or = to 40 mg Rosuvastatin > than or = to 20 mg Amlodipine + Atorvastatin > than or = to 2.5/40 mg Ezetimibe + Simvastatin 10/80 mg Simvastatin 80mg Discharge Plan Admission Admit Date/Time: 03/15/24 19:28 Primary Reason for Your Visit: Altered mental status secondary to intoxication Attending Provider: Leidy Shea Primary Care Provider: Lesley Crespo Consulting Providers: Brian Lopez; Jama Turner; Gregg Alanis; Edgardo Gunderson; Brian Weathers; Nael Alcala; Cy Zhao; Kaitlyn Gordon; Odell Horn; Isaiah Angel; Elly Hernandez; Sue Pro; Jose Gonzalez; Vishun Chiu; Eitan Malagon; Kiarra Jones; Ilya Salazar; Liam Berman Discharge Orders/Prescriptions Prescriptions: Continued Abilify Asimtufii 720 mg/2.4 mL suspension,extended rel syring 720 mg IM .q8 weeks atorvastatin 10 mg tablet 10 mg PO DAILY bupropion HCl 300 mg tablet extended release 24 hr 300 mg PO DAILY cetirizine 10 mg tablet 10 mg PO DAILY clonazepam 1 mg tablet 1 mg PO 4X/DAY PRN PRN (Reason: anxiety) docusate sodium [Stool Softener] 100 mg capsule 100 mg PO DAILY estradiol 0.5 mg tablet 0.5 mg PO DAILY hydroxyzine pamoate 25 mg capsule 25 mg PO TID lisinopril 5 mg tablet 5 mg PO DAILY Caplyta 21 mg capsule 21 mg PO DAILY meloxicam 7.5 mg tablet 7.5 mg PO BID metformin 500 mg tablet 500 mg PO BID ondansetron 4 mg tablet,disintegrating 4 mg PO Q8 pantoprazole 40 mg tablet,delayed release (DR/EC) 40 mg PO DAILY pregabalin 150 mg capsule 150 mg PO TID Trintellix 20 mg tablet 20 mg PO DAILY Held bupropion HCl 150 mg tablet sustained-release 12 hr 150 mg PO DAILY Hold Instructions: Until instructed otherwise Referrals / Follow Up: Lesley Crespo MD [Primary Care Provider] - Within 1 Week Disposition Disposition (needs filled in before D/C Order can be placed): Home, Self Care Charges/Coding Visit Charges Inpatient E&M: 79671 Disch Hosp
== END 2024-03-16 15:16 | disposition home or self-care (01) | DRG 775 ==
LOC: ED 19:01 → ICU 20:11
PROVIDERS: Admitting Provider Internal Medicine; Emergency Provider Emergency Medicine; PCP Family Medicine; Visit Provider Internal Medicine
DX: F10.221 Alcohol dependence with intoxication delirium (principal); J96.02 Acute respiratory failure with hypercapnia; E87.29 Other acidosis; T68.XXXA Hypothermia, initial encounter; E11.40 Type 2 diabetes mellitus with diabetic neuropathy, unspecified; F31.9 Bipolar disorder, unspecified; F12.10 Cannabis abuse, uncomplicated; I10 Essential (primary) hypertension; J30.2 Other seasonal allergic rhinitis; E78.5 Hyperlipidemia, unspecified; E11.65 Type 2 diabetes mellitus with hyperglycemia; K21.9 Gastro-esophageal reflux disease without esophagitis; Y90.8 Blood alcohol level of 240 mg/100 ml or more; Z68.28 Body mass index [BMI] 28.0-28.9, adult; E66.3 Overweight; Z79.84 Long term (current) use of oral hypoglycemic drugs; Z79.899 Other long term (current) drug therapy
CPT/HCPCS: 31500; 31720; 36600; 51702; 70450; 71045; 74018; 80053; 80307; 81001; 82077; 82550; 82803; 83605; 83735; 84100; 84443; 84478; 85025; 85610; 85730; 87070; 87077; 87205; 93005; 94002; 94003; 94660; 97802; 99252; 99285; J7030; A4216; G0463; J2405

== ENCOUNTER → 2024-03-22 | Outpatient (CLI) | payer MEDICAID, SELFPAY ==
[2024-03-22 10:35] LABS: Absolute Lymphocyte Count 2.17 X10^3/uL (0.83-4.51); Absolute Neutrophil Count 5.1 X10^3/uL (2.0-7.7); Basophil# 0.04 X10^3/uL; Basophil% 0.5 % (0-1); Eosinophil# 0.17 X10^3/uL; Eosinophils% 2.1 % (0-5); Hematocrit 41.3 % (37-47); Hemoglobin 13.6 g/dL (12.0-15.0); Lymphocyte # 2.17 X10^3/ul (0.83-4.51); Lymphocyte % 27.1 % (19-41); Mean Corp Hgb Conc 32.9 g/dL (32-36); Mean Corpuscular Hgb 29.6 pg (27.0-32.0); Mean Corpuscular Volume 89.8 fL (81-99); Mean Platelet Vol. 9.7 fl (6.2-12.0); Monocyte% 6.2 % (0-10); NRBC Flagged by Analyzer 0 % (0-5); Neutrophil # 5.07 X10^3/uL (2.7-7.7); Neutrophil % 63.2 % (47-70); Platelet Count 301 K/mm3 (150-450); RBC Distribution Width CV 13.2 % (11.6-14.6); RBC Distribution Width SD 42.5 fl (35.1-43.9)
[2024-03-22 11:47] LABS: Hemoglobin A1c 6.5 % (3.8-5.6)
[2024-03-22 11:57] LABS: ALB/GLOB Ratio 0.8 RATIO (0.9-2.4); AST(SGOT) 10 U/L (15-37); Alanine Aminotransfer ALT/SGPT 22 U/L (13-56); Albumin, Serum 3.2 g/dL (3.2-5.0); Alkaline Phosphatase 114 U/L (45-117); Anion Gap 5 (5-15); BUN 14 mg/dL (7-18); BUN/Creat Ratio 18.9 RATIO (10-20); Calcium,Total 9.5 mg/dL (8.5-10.1); Chloride 106 mmol/L (98-107); Cholesterol 207 mg/dL (200); Creatinine, Serum 0.74 mg/dL (0.55-1.02); EST Glomerular Filtration Rate 88 mL/min (>60); Est Glom Filt Rate - Afr Amer 107 mL/min (>60); Glucose 127 mg/dL (74-106); High Density Lipoprotein 63 mg/dL; Protein, Total 7.2 g/dL (6.4-8.2); Sodium Level 138 mmol/L (136-145); Triglycerides 117 mg/dL; Very Low Density Lipoprotein 23 mg/dL (5-40)
== END | disposition home or self-care (01) ==
PROVIDERS: PCP Family Medicine; Visit Provider Family Medicine
DX: E11.9 Type 2 diabetes mellitus without complications (principal); K21.9 Gastro-esophageal reflux disease without esophagitis; E78.5 Hyperlipidemia, unspecified; R53.83 Other fatigue
CPT/HCPCS: 36415; 80053; 80061; 83036; 84443; 85025

== ENCOUNTER → 2024-09-13 | Outpatient (CLI) | payer MEDICAID, SELFPAY ==
--- NOTE | 2024-09-13 10:47 | RAD_ITS ---
EXAM: XR Right Knee Complete, 4 or More Views CLINICAL INDICATION: KNEE PAIN TECHNIQUE: Four or more views of the right knee. COMPARISON: No relevant prior studies available. FINDINGS: BONES/JOINTS: The patella appears to be slightly laterally located. Correlation for subluxation is recommended. No acute fracture. SOFT TISSUES: Unremarkable. RAD/Knee 4 or More Views IMPRESSION: The patella appears to be slightly laterally located. Correlation for subluxat ion is recommended. Reading Location: [facility]
--- NOTE | 2024-09-13 10:47 | RAD_ITS ---
EXAM: XR Left Knee Complete, 4 or More Views CLINICAL INDICATION: KNEE PAIN TECHNIQUE: Four or more views of the left knee. COMPARISON: No relevant prior studies available. FINDINGS: BONES/JOINTS: Mild degenerative changes of the medial compartment of the knee joint. No acute fracture. No dislocation. SOFT TISSUES: Unremarkable. RAD/Knee 4 or More Views IMPRESSION: Degenerative changes as above. Reading Location: [facility]
== END | disposition home or self-care (01) ==
LOC: MTRAD 10:44
PROVIDERS: PCP Family Medicine; Referring Provider Family Medicine; Visit Provider Family Medicine
DX: M25.561 Pain in right knee (principal); M25.562 Pain in left knee
CPT/HCPCS: 73564

== ENCOUNTER → 2024-10-09 | Outpatient (CLI) | payer MEDICAID, SELFPAY ==
--- NOTE | 2024-10-09 13:39 | NEURO ---
NCS and/or EMG Patient Report Ordering Doctor: Justice Ocampo DATE OF SERVICE: 10/09/24 Caridad presents for electrodiagnostic testing of the upper limbs. She works numbness and tingling in both hands, worse on the right side. Electrodiagnostic findings: Right median motor nerve demonstrates distal latency, amplitude and conduction velocity. Left median motor nerve demonstrates normal distal latency, amplitude and conduction velocity. Right ulnar motor nerve demonstrates normal distal latency and amplitude with a decreased in conduction proximally 25% across the elbow. Normal median and ulnar F?waves. Prolonged right median sensory latency at the wrist. Normal left median sensory latency at the wrist and palm. Normal ulnar and radial sensory responses. Needle EMG testing was performed upper limbs. All muscles tested showed no evidence of denervation with normal motor unit action potentials. Electrodiagnostic impression: This is an abnormal study, in the right upper limb. 1. Electrodiagnostic findings suggestive of right-sided median mononeuropathy. This consistent with a mild right carpal tunnel syndrome. 2. Electrodiagnostic findings suggestive of right-sided ulnar neuropathy, consistent with a mild to moderate right cubital tunnel syndrome. 3. No electrodiagnostic evidence is noted for cervical radiculopathy. 4. No evidence of peripheral neuropathy noted in the left upper limb. Multi Select Codes Neurology Neurology Interp Codes: 73799-39 Musc test done w/n test comp (interp) (2) and 89504-35 Nrv cndj test 13/> studies (interp)
== END | disposition home or self-care (01) ==
LOC: PSN 09:08
PROVIDERS: PCP Family Medicine; Referring Provider Surgery Plastic and Reconstructive Surgery; Visit Provider Surgery Plastic and Reconstructive Surgery
DX: G56.01 Carpal tunnel syndrome, right upper limb (principal)
CPT/HCPCS: 95886; 95913

== ENCOUNTER 2024-11-13 15:00 | Outpatient (RCR) | payer MEDICAID, SELFPAY ==
--- NOTE | 2024-11-04 17:06 | HP.PTEVAL ---
Patient's Visit Information Visit Information Visit Information: THONG NEFF is a 49 year old F referred to Physical Therapy by JESE Cardoza with a diagnosis of L knee pain. Date of Evaluation: 11/04/24 Physical Therapist: Gabriel Cody, PT, ATC Visit Plan Frequency: 2x /Week Duration: 4-6 Weeks Plan: L knee stretching and strengthening, balance and proprio, core strengthening, bike, and HEP Subjective Subjective: Pt reports her L knee has been sore for about one month now. Pt reports her pain had an insidious onset in nature. Pt reports her L knee just woke her up one night secondary to severe pain. Pt reports her pain has become a little better overall secondary to wearing a brace now. Pt reports if she falls a sleep secondary to pain without her brace on, it will wake her up. Pt reports occasional tingling in her foot, but no other LE tingling or numbness. Pt reports she has had xrays recently which revealed that she has lost fluid under her patella. Pt reports most of her pain is located on the lateral joint line of her L knee. Pt reports she is unable to negotiate stairs at this time secondary to pain. Pt reports she lives in a one story house. Pt is not currently working at this time secondary to being disabled. Pt notes her L knee pain is 1/10 while sitting here at rest, but notes her pain elevates to 10/10 at worst. Pt reports her L knee will give out on her on occasion. No locking up. Pain L knee: Pain Intensity (Out of 10): 1 Pain Intensity Range: 10 Objective Objective: Neuro: B LE sensation is WNL to light touch. Palpation: Pt is very tender on the lateral joint line of L knee. No swelling noted at this time. TU seconds ROM: R knee 0-125 degrees ; L knee 0-115 degrees MMT: R knee flex= 34, ext= 39 #F; L knee flex= 32, ext= 13 #F Special tests; Pos Kelechi sign Balance/Special Test Scores Lower Extremity Functional Score: 42 Goals Goal 1:: Decrease L knee pain x 50% to aid with sleep Goal Time Frame: 4-6 Weeks Goal 2:: Increase L knee ext strength x 10#F to aid with stair negotiation Goal Time Frame: 4-6 Weeks Goal 3:: Increase L knee flexion ROM x 10 degrees to aid with IADL's Goal Time Frame: 4-6 Weeks Goal 4:: I with HEP Goal Time Frame: 4-6 Weeks Rehabilitation Potential Physical Therapy Diagnosis: Pt has L knee pain, weakness, and limited ROM secondary to L knee internal derrangement Rehabilitation Potential: Good Anticipated Interventions Patient/Client Instruction: Educate patient on: Condition and Plan of Care For the Purpose of:: To improve self management Therapeutic Exercise to Include: Strength training, Endurance training, Balance training, Flexibilty training, Active ROM and Dynamic Lumbar Stabilization For the Purpose of:: To decrease pain, To increase ROM and To improve muscle performance and motor function Cryotherapy (ice pack, ice massage): Yes For the Purpose of:: To decrease pain Text: Thank you for the opportunity to evaluate your patient. For Medicare and Medicare HMO plans, please review the plan of care and approve it. It will need to be FAXED BACK to us at [phone] for Medicare purposes. For Medicare only, by signing this I certify the plan of care. Please let me know if there are questions or concerns regarding this plan of care. Physician Signature: Date:
== END 2024-11-13 19:00 | disposition home or self-care (01) ==
LOC: PT 15:00
PROVIDERS: PCP Family Medicine
DX: M25.562 Pain in left knee (principal)
CPT/HCPCS: 97110; 97161

== ENCOUNTER → 2024-11-14 | Outpatient (CLI) | payer MEDICAID, SELFPAY ==
[2024-11-14 18:35] LABS: Absolute Lymphocyte Count 2.98 X10^3/uL (0.83-4.51); Absolute Neutrophil Count 7.3 X10^3/uL (2.0-7.7); Basophil# 0.05 X10^3/uL; Basophil% 0.5 % (0-1); Eosinophil# 0.08 X10^3/uL; Eosinophils% 0.7 % (0-5); Hematocrit 45.7 % (37-47); Hemoglobin 14.7 g/dL (12.0-15.0); Lymphocyte # 2.98 X10^3/ul (0.83-4.51); Mean Corp Hgb Conc 32.2 g/dL (32-36); Mean Corpuscular Hgb 29.2 pg (27.0-32.0); Mean Corpuscular Volume 90.9 fL (81-99); Mean Platelet Vol. 10.4 fl (6.2-12.0); Monocyte# 0.59 X10^3/uL; Monocyte% 5.3 % (0-10); NRBC Flagged by Analyzer 0 % (0-5); Neutrophil # 7.28 X10^3/uL (2.7-7.7); Platelet Count 336 K/mm3 (150-450); RBC Distribution Width CV 13.5 % (11.6-14.6); RBC Distribution Width SD 45.1 fl (35.1-43.9); Red Blood Count 5.03 M/mm3 (4.2-5.4)
[2024-11-14 18:53] LABS: ALB/GLOB Ratio 1.3 RATIO (0.9-2.4); AST(SGOT) 23 U/L (<=31); Alanine Aminotransfer ALT/SGPT 25 U/L (<=34); Albumin, Serum 4.2 g/dL (3.5-5.0); Alkaline Phosphatase 127 U/L (35-104); Anion Gap 13 (5-15); BUN 9 mg/dL (4-19); BUN/Creat Ratio 13.9 RATIO (10-20); Calcium,Total 9.6 mg/dL (7.6-11.0); Carbon Dioxide 24.6 mmol/L (21.0-32.0); Chloride 103 mmol/L (98-108); Creatinine, Serum 0.68 mg/dL (0.70-1.20); EST Glomerular Filtration Rate 105 (>60); Globulin 3.3 g/dL (2.2-4.2); Glucose 131 mg/dL (70-99); Potassium 4.2 mmol/L (3.3-5.1); Protein, Total 7.5 g/dL (5.9-8.4); Sodium Level 140 mmol/L (133-145); Total Bilirubin 0.28 mg/dL (0.00-1.30)
== END | disposition home or self-care (01) ==
LOC: MFPLAB 16:53
PROVIDERS: PCP Family Medicine; Referring Provider Family Medicine; Visit Provider Family Medicine
DX: Z01.818 Encounter for other preprocedural examination (principal); E11.9 Type 2 diabetes mellitus without complications
CPT/HCPCS: 36415; 80053; 83036; 85025

== ENCOUNTER → 2025-01-24 | Outpatient (CLI) | payer MEDICAID, SELFPAY | END | disposition home or self-care (01) | LOC: LAB 09:56 | PROVIDERS: PCP Family Medicine; Referring Provider Surgery Plastic and Reconstructive Surgery; Visit Provider Surgery Plastic and Reconstructive Surgery | DX: E11.9 Type 2 diabetes mellitus without complications (principal) | CPT/HCPCS: 36415; 83036 ==

== ENCOUNTER 2025-01-29 08:25 | Day surgery (SDC) | payer MEDICAID, SELFPAY ==
--- NOTE | 2025-01-16 16:29 | PAT.ANESEVAL ---
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 When Was Last Pacemaker Check QUESTION #4 FULL TEXT: You/Your Family Experience fever (hyperthermia) with Anesthesia Last Oral Intake Last Oral intake: Last Oral Intake NPO since Meds taken in AM with sips of water? Meds patient instructed to take am of surgery PONV PONV - draw bench operator: PONV - draw bench operator Female Yes 01/16/25 11:24 HX of Motion Sickness No 01/16/25 11:24 HX of N/V After Surgery No 01/16/25 11:24 Non-Smoker No 01/16/25 11:24 Duration of Surgery greater Yes 01/16/25 11:24 than 60 minutes Number of Risk Factors 2 01/16/25 11:24 PONV Score Moderate Risk 01/16/25 11:24 Height & Weight Height & Weight: Anesthesia: Height & Weight Height 5 ft 3 in 08/29/24 11:19 Respiratory Assessment Respiratory Assessment - draw bench operator: Respiratory Tract Infection Hx - draw bench operator Hx Respiratory Tract Infection No 01/16/25 11:24 STOP Sleep Apnea STOP Sleep Apnea - draw bench operator: STOP Sleep Apnea - draw bench operator Hx Hypertension No 01/16/25 11:24 Hx Sleep Apnea No 01/16/25 11:24 CPAP BIPAP Do you snore loudly (louder No 01/16/25 11:24 than talking or can be heard Do you often feel tired/ No 01/16/25 11:24 fatigued/ sleepy during daytime? Has anyone observed you stop No 01/16/25 11:24 breathing during sleep? STOP Results Negative 01/16/25 11:24 QUESTION #5 FULL TEXT : Do you snore loudly (louder than talking or can be heard through closed doors)? 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 Specify any problems Hx of Preganancy in last 3 N/A 01/16/25 11:24 Months Nurse Filling Out Transfusion NBUCHER 01/16/25 11:24 & Questions: Date: 01/16/25 01/16/25 11:24 Time: 11:26 01/16/25 11:24 Patient unable to answer at this time (ie. confused, unrespo /Reproduction History /Reproductive History - draw bench operator: /Reproductive Hx- draw bench operator Hx Now No 01/16/25 11:24 Gestational Age (in weeks): EDC: Hx Hx Para Hx Section SAB No 01/16/25 11:24 [facility] Medical History (Updated 01/16/25 @ 11:31 by Tamica Montanez) Loss of hearing Wears glasses Depression Anxiety Marijuana use High cholesterol Wears dentures Gastroparesis Smoker Bipolar disorder Carpal tunnel syndrome of right wrist Spinal stenosis Lumbar radiculopathy Type 2 diabetes mellitus Drug abuse IBS (irritable bowel syndrome) Tuberculosis Skin cancer Osteoarthritis H/O gastroesophageal reflux (GERD) Diabetes Breast lump Arthritis Anemia Chronic headaches Home Medications ?Medication ?Instructions ?Recorded ?Last Taken ?Type cholecalciferol (vitamin D3) 50 50 mcg PO DAILY 09/11/23 Unknown History mcg (2,000 unit) capsule clonazepam 1 mg tablet 1 mg PO 4X/DAY PRN anxiety 09/11/23 Unknown History flash glucose scanning reader 09/11/23 Unknown History (FreeStyle Emmanuel 14 Day [place]) lumateperone 21 mg capsule 21 mg PO DAILY 09/11/23 Unknown History (Caplyta) vortioxetine 20 mg tablet 20 mg PO QDAY 09/11/23 Unknown History (Trintellix) flash glucose sensor (FreeStyle #1 ea 11/16/23 Unknown Rx Emmanuel 2 Sensor kit) docusate sodium 100 mg capsule 100 mg PO BID #60 caps 01/19/24 Unknown Rx arm brace (Wrist Brace) #2 ea 01/24/24 Unknown Rx aripiprazole 5 mg tablet (Abilify) 5 mg PO DAILY 02/13/24 Unknown History iodoform 1/4 X 5 yard bandage #12 ea 02/13/24 Unknown Rx bupropion HCl 300 mg 24 hr tablet, 300 mg PO DAILY 02/19/24 Unknown History extended release atorvastatin 10 mg tablet 10 mg PO DAILY HLD 03/16/24 Unknown History cetirizine 10 mg tablet 10 mg PO DAILY allergies 03/16/24 Unknown History estradiol 0.5 mg tablet 0.5 mg PO DAILY hormone 03/16/24 Unknown History hydroxyzine pamoate 25 mg capsule 25 mg PO TID depression 03/16/24 Unknown History ondansetron 4 mg disintegrating 4 mg PO Q8 nausea 03/16/24 Unknown History tablet pantoprazole 40 mg tablet,delayed 40 mg PO DAILY indegestion 03/16/24 Unknown History release pregabalin 150 mg capsule 150 mg PO TID pain 03/16/24 Unknown History biotin 10,000 mcg capsule 10,000 mcg PO DAILY 01/16/25 Unknown History doxycycline hyclate 100 mg tablet 100 mg PO BID 01/16/25 Unknown History dulaglutide 0.75 mg/0.5 mL 0.75 mg subcut HASSAN 01/16/25 Unknown History subcutaneous pen injector (Trulicity) duloxetine 20 mg capsule,delayed 20 mg PO DAILY 01/16/25 Unknown History release mirabegron 50 mg tablet,extended 50 mg PO DAILY 01/16/25 Unknown History release 24 hr (Myrbetriq) multivitamin (Daily Multi-Vitamin 1 tab PO DAILY 01/16/25 Unknown History tablet) zolpidem 10 mg tablet 10 mg PO QHS 01/16/25 Unknown History Allergy/AdvReac Type Severity Reaction Status Date / Time No Known Allergies Allergy Verified 01/16/25 11:13 Surgical History Hx of lumbosacral spine surgery H/O: hysterectomy S/P cervical spinal fusion H/O adenoidectomy History of tonsillectomy Social History adopted: No household members: spouse number of children: 2 current occupational status: disabled pets and animals: Yes (3) pets and animals: cat(s) Smoking Status: Current every day smoker tobacco type: cigarettes Tobacco: How many years used: 45 quit status: has quit before alcohol intake: current alcohol intake frequency: a few times a month substance use type: marijuana and methamphetamine diet: other caffeine: Yes (5) Type: carbonated beverages frequency: does not exercise seatbelt use: always do you feel safe at home: Yes Audit: Pertinent Findings Pertinent Findings EKG Perinent findings: March 15, 2024. Sinus tachycardia 102 bpm. Rightward axis deviation. Recommendation Anesthesia Recommendation Anesthesia recommendation: OPTIMIZED for anesthesia
[2025-01-29] VITALS (12 sets, daily range): BP systolic 113–136; BP diastolic 69–102; PULSE 77–99; RESP 16–18; TEMP 36.1–37.2; O2SAT 92–98; BMI 34.0
[2025-01-29] MEDS: Lactated Ringers 1,000 ML 15 ML IV (09:08)
--- NOTE | 2025-01-29 09:20 | PCM.HP.STD ---
HPI - General HPI Narrative THONG NEFF, is a 49 F who presents with carpal tunnel and cubital tunnel of the right upper extremity. Presents today for CT release and cubital tunnel release Current Encounter (DATE OF SURGERY H&P UPDATE): I saw and examined the patient this morning in pre-operative holding. We discussed risks and benefits of today's surgery and they would like to proceed. NO CHANGE in health history since last seen and evaluated. Ready to proceed with surgery. [facility] Medical History Loss of hearing Wears glasses Depression Anxiety Marijuana use High cholesterol Wears dentures Gastroparesis Smoker Bipolar disorder Carpal tunnel syndrome of right wrist Spinal stenosis Lumbar radiculopathy Type 2 diabetes mellitus Drug abuse IBS (irritable bowel syndrome) Tuberculosis Skin cancer Osteoarthritis H/O gastroesophageal reflux (GERD) Diabetes Breast lump Arthritis Anemia Chronic headaches Home Medications ?Medication ?Instructions ?Recorded ?Last Taken ?Type cholecalciferol (vitamin D3) 50 50 mcg PO DAILY 09/11/23 01/28/25 History mcg (2,000 unit) capsule clonazepam 1 mg tablet 1 mg PO 4X/DAY PRN anxiety 09/11/23 01/28/25 History flash glucose scanning reader 09/11/23 Unknown History (FreeStyle Emmanuel 14 Day [place]) lumateperone 21 mg capsule 21 mg PO DAILY 09/11/23 01/28/25 History (Caplyta) vortioxetine 20 mg tablet 20 mg PO QDAY 09/11/23 01/28/25 History (Trintellix) flash glucose sensor (FreeStyle #1 ea 11/16/23 Unknown Rx Emmanuel 2 Sensor kit) docusate sodium 100 mg capsule 100 mg PO BID #60 caps 01/19/24 01/27/25 Rx arm brace (Wrist Brace) #2 ea 01/24/24 Unknown Rx aripiprazole 5 mg tablet (Abilify) 5 mg PO DAILY 02/13/24 01/29/25 History iodoform 1/4 X 5 yard bandage #12 ea 02/13/24 Unknown Rx atorvastatin 10 mg tablet 10 mg PO DAILY HLD 03/16/24 01/28/25 History cetirizine 10 mg tablet 10 mg PO DAILY allergies 03/16/24 01/28/25 History estradiol 0.5 mg tablet 0.5 mg PO DAILY hormone 03/16/24 01/28/25 History hydroxyzine pamoate 25 mg capsule 25 mg PO TID depression 03/16/24 01/28/25 History ondansetron 4 mg disintegrating 4 mg PO Q8 nausea 03/16/24 Unknown History tablet pantoprazole 40 mg tablet,delayed 40 mg PO DAILY indegestion 03/16/24 01/29/25 History release pregabalin 150 mg capsule 150 mg PO TID pain 03/16/24 01/28/25 History biotin 10,000 mcg capsule 10,000 mcg PO DAILY 01/16/25 01/28/25 History dulaglutide 0.75 mg/0.5 mL 0.75 mg subcut HASSAN 01/16/25 01/19/25 History subcutaneous pen injector (Trulicity) duloxetine 20 mg capsule,delayed 20 mg PO DAILY 01/16/25 01/28/25 History release mirabegron 50 mg tablet,extended 50 mg PO DAILY 01/16/25 01/28/25 History release 24 hr (Myrbetriq) multivitamin (Daily Multi-Vitamin 1 tab PO DAILY 01/16/25 01/28/25 History tablet) zolpidem 10 mg tablet 10 mg PO QHS 01/16/25 01/28/25 History buspirone PO DAILY 01/29/25 01/28/25 History cephalexin 500 mg capsule 500 mg PO Q8H 7 days #21 caps 01/29/25 Unknown Rx diazepam PO .qid PRN anxiety 01/29/25 01/28/25 History oxycodone 5 mg tablet 5 mg PO Q12H PRN pain 5 days #10 01/29/25 Unknown Rx tabs Allergy/AdvReac Type Severity Reaction Status Date / Time No Known Allergies Allergy Verified 01/29/25 08:51 Surgical History Hx of lumbosacral spine surgery H/O: hysterectomy S/P cervical spinal fusion H/O adenoidectomy History of tonsillectomy Social History adopted: No household members: spouse number of children: 2 current occupational status: disabled pets and animals: Yes (3) pets and animals: cat(s) Smoking Status: Current every day smoker tobacco type: cigarettes Tobacco: How many years used: 45 quit status: has quit before alcohol intake: current alcohol intake frequency: a few times a month substance use type: marijuana and methamphetamine diet: other caffeine: Yes (5) Type: carbonated beverages frequency: does not exercise seatbelt use: always do you feel safe at home: Yes Vital Signs Vital Signs Vital Signs: 01/29/25 08:56 01/29/25 08:56 Temperature 97.0 F L Temperature Source Temporal Pulse Rate 84 Respiratory Rate 18 Respiratory Pattern Normal Blood Pressure 136/102 H Blood Pressure Mean 113 Blood Pressure Source Monitor Blood Pressure Position Semi-Fowlers Blood Pressure Location Right Arm Pulse Ox 93 Oxygen Delivery Method Room Air Weight Weight: 191 lb 12.835 oz Body Mass Index (BMI) 34.0 Physical Exam Narrative Exam of the RIGHT upper limb revealed the following: Inspection: No intrinsic muscle atrophy. 5+ APB, 5+ first dorsal interossei. No obvious scarring Palpation: No tenderness to palpation of the hand or wrist. Negative Spurling test Motor: Able to bend and extend all MP, PIP, and DIP joints. Sensory: Intact to light touch on the radial and ulnar borders, however she had inconsistent and unreliable 2-point discrimination on the radial and ulnar borders of all digits, which was worse compared to the left side which was consistently 2 to 3 mm 2-point discrimination. Vascular: Finger tips are warm and well perfused with <2 second capillary refill. ([+]) Tinel sign over carpal tunnel. ([+]) Phalen's and Durken's test. ([-]) tenderness to palpation over volar forearm near pronator teres. ([-]) numbness in median nerve distribution with compression of pronator teres. ([-]) Tinel sign along median nerve distribution over pronator teres region. ([-]) Tinel sign along median nerve distribution with passive supination of forearm. ([+]) decreased sensation over thenar eminence. Provocative signs for ulnar neuropathy: Positive Tinel's over the cubital tunnel Positive elbow flexion test (full 3 min) Assessment & Plan Assessment/Plan (1) Cubital tunnel syndrome on right: (2) Carpal tunnel syndrome of right wrist: PLAN: Plan I discussed with Zakia the diagnosis and proposed treatment options.? I discussed the pathophysiology of cubital tunnel syndrome. I also discussed that elbow flexion will cause traction on the ulnar nerve at the cubital tunnel, and prolonged elbow flexion can lead to ulnar nerve irritation, which then presents with symptoms of numbness and tingling involving the ring and small fingers. When ulnar nerve irritation/compression becomes severe and chronic, muscle atrophy may occur in the ulnar nerve innervated muscles, including flexor carpi ulnaris (FCU), flexor digitorum profundus (FDP) of the small finger, intrinsic muscles of the ring and small fingers, and first dorsal interosseous muscle (FDI). Weakness/atrophy of these muscles may lead to hand weakness/decreased rabbit fancier strength. Treatment options were also discussed. Non-surgical treatment include activity/posture modification to minimize prolonged elbow flexion (eg. not sitting with arms across the chest, or sleeping with arms behind the head). Folded thick towels may be used to wrap around the elbow at bedtime to prevent elbow flexion during sleep. When symptoms do not improve with non-surgical treatment, cubital tunnel decompression may be considered. After cubital tunnel decompression, if the ulnar nerve subluxes over the medial epicondyle, then anterior transposition of the ulnar nerve would be recommended. Risks of surgery include bleeding, infection, damage to adjacent structures (medial antebrachial cutaneous nerve), failure of symptoms to improve, as well as nerve pain/neuroma pain. Patient understands, and desires to proceed with surgery. We also discussed that the patient likely has carpal tunnel syndrome. One option is to perform open carpal tunnel release, which involves making an incision on the volar surface of the hand, between the thenar and hypothenar region. This can be done under local anesthesia, and can successfully decompress the carpal tunnel all of the time. The main disadvantage is a scar in the volar hand that can be painful and sensitive for a while, and the possibility of a wound dehiscence if the hand is over-used in the post-operative period. The other option is to perform endoscopic carpal tunnel release, which involves using an endoscope to decompress the carpal tunnel through a small incision in the distal forearm. The benefit of this approach is to avoid making an incision on the volar surface of the hand, with less scar tenderness. However, in 5% of the patient, the endoscopic approach will need to be converted to the open approach due to inability to clearly visualize the undersurface of the transverse carpal ligament using the endoscope (usually due to excessive tenosynovitis in the wrist, or scarring from prior infection), which needs to be completely divided to decompress the carpal tunnel. We also discussed that although the endoscopic approach has faster recovery within the first 3 months, the long-term outcome after 1 year is equivalent with both the open and endoscopic approach. The patient desires to proceed with endoscopic carpal tunnel release, with possible conversion to the open approach if good visualization cannot be achieved using the endoscope. I further talked to the patient about the risks of anesthesia including stroke, DVT/PE. I also spoke with her about the risks of damage to nerves especially the recurrent branch of the median nerve. She is accepting of these risks. We furthermore talked about the risks of wound healing complications (discussed smoking cessation) and we discussed the risks of infection and bleeding problems. She understands the risks of damage to surrounding structures. She would like to proceed. Plan Endoscopic versus open right carpal tunnel release, right cubital tunnel release and possible nerve transposition. General anesthesia Today in preoperative holding I reiterated the risks, benefits, and alternatives to the procedure as noted above. We particularly talked about damage to the recurrent branch of the median nerve, as well as damage to the medial antebrachial cutaneous nerves and other nerves associated with the ulnar nerve at the elbow. I talked her about damage to the ulnar nerve at the elbow and how this would be a very challenging problem requiring multiple interventions and potential for serious dysfunction of her hand with any ulnar or median nerve injury. She has accepting of these risks. I also talked to her about the risk of wound healing complications in the setting of her smoking and diabetes (A1c of 7.2). She is accepting of these risks as well and would like this procedure done. Furthermore we talked about the incisions and the postoperative course. I talked to the patient extensively about the risks of surgery, including bleeding, infection, damage to surrounding structures, poor scaring, surgical site dehiscence and wound formation, need for wound care, need for repeat operations, failure to obtain the desired result, DVT/PE, and the risks of anesthesia including , including stroke (from low blood pressure/ischemia or clot). The benefits and alternatives of this surgery were also discussed. All of their questions were answered, and they agreed to proceed with surgery. Endoscopic versus possible open (discussed with patient) right carpal tunnel release, right cubital tunnel release and possible nerve transposition. General anesthesia Furthermore I talked to her about failure to improve her symptoms, or delay of up to 1 year for improvement. She understood this and elected to proceed.
--- NOTE | 2025-01-29 09:26 | PCM.PRE.AN2 ---
ASA Classification* ASA Classification ASA Classification: 3 Assessment & Plan Anesthesia* Anesthesia Assessment Anesthesia Assessment: Discussed sedation and/or anesthesia options, risks, benefits, and alternatives with patient/parents/legal guardian/POA. Questions invited. The patient/parents/legal guardian/POA seems to understand and agrees to proceed with anesthesia plan. Reviewed the physical assessment, medical history, allergy history and patient home medications list prior to surgery/procedure/anesthetic and documented any changes. Performed airway and anesthesia risk assessments. Anesthesia Type Anesthesia Type: General Anesthesia Focused Assessment* Temperature: 97.0 F Pulse Rate: 84 Blood Pressure: 136/102 Respiratory Rate: 18 Pulse Ox: 93 Oxygen Delivery Method: Room Air Airway Assessment Mouth opens: 2 cm Mallampati Score: II Teeth Condition: Intact Neck Range of motion (ROM): Full ROM Labs Anesthesia Preop lab: CBC WBC 11.0 K/mm3 (4.4-11.0) 11/14/24 16:54 11/14/24 RBC 5.03 M/mm3 (4.2-5.4) 11/14/24 16:54 11/14/24 Hgb 14.7 g/dL (12.0-15.0) 11/14/24 16:54 11/14/24 Hct 45.7 % (37-47) 11/14/24 16:54 11/14/24 Plt Count 336 K/mm3 (150-450) 11/14/24 16:54 11/14/24 CHEMISTRY Potassium 4.2 mmol/L (3.3-5.1) 11/14/24 16:54 11/14/24 Sodium 140 mmol/L (133-145) 11/14/24 16:54 11/14/24 Magnesium 1.6 mg/dL (1.6-2.6) 03/16/24 03:10 03/16/24 Phosphorus 3.3 mg/dL (2.5-4.9) 03/16/24 03:10 03/16/24 BUN 9 mg/dL (4-19) 11/14/24 16:54 11/14/24 Creatinine 0.68 mg/dL (0.70-1.20) L 11/14/24 16:54 11/14/24 Glucose 131 mg/dL (70-99) H 11/14/24 16:54 11/14/24 TSH 3.900 uIU/mL (0.358-3.740) H 03/22/24 08:47 03/22/24 COAG PT 12.6 SECONDS (11.7-14.9) 03/15/24 17:20 03/15/24 Pre-Assessment Diagnosis/Proposed Procedure Planned Operative Procedure(s): (R) Endoscopic versus open right carpal tunnel release, right cubital tunnel release and possible nerve transposition Anesthesia History 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 When Was Last Pacemaker Check QUESTION #4 FULL TEXT: You/Your Family Experience fever (hyperthermia) with Anesthesia Last Oral Intake Last Oral intake: Last Oral Intake NPO since 03:00 01/29/25 08:56 Meds taken in AM with sips of Yes 01/29/25 08:56 water? Meds patient instructed to take am of surgery PONV PONV - abe teacher: PONV - abe teacher Female Yes 01/16/25 11:24 HX of Motion Sickness No 01/16/25 11:24 HX of N/V After Surgery No 01/16/25 11:24 Non-Smoker No 01/16/25 11:24 Duration of Surgery greater Yes 01/16/25 11:24 than 60 minutes Number of Risk Factors 2 01/16/25 11:24 PONV Score Moderate Risk 01/16/25 11:24 Height & Weight Height & Weight: Anesthesia: Height & Weight Height 5 ft 3 in 01/29/25 08:56 Weight: 87 kg 01/29/25 08:56 Body Mass Index (BMI) 34.0 01/29/25 08:56 Respiratory Assessment Respiratory Assessment - abe teacher: Respiratory Tract Infection Hx - abe teacher Hx Respiratory Tract Infection No 01/16/25 11:24 STOP Sleep Apnea STOP Sleep Apnea - abe teacher: STOP Sleep Apnea - abe teacher Hx Hypertension No 01/16/25 11:24 Hx Sleep Apnea No 01/16/25 11:24 CPAP BIPAP Do you snore loudly (louder No 01/16/25 11:24 than talking or can be heard Do you often feel tired/ No 01/16/25 11:24 fatigued/ sleepy during daytime? Has anyone observed you stop No 01/16/25 11:24 breathing during sleep? STOP Results Negative 01/16/25 11:24 QUESTION #5 FULL TEXT : Do you snore loudly (louder than talking or can be heard through closed doors)? Tobacco Use History Tobacco Use History - abe teacher: Tobacco Use History - abe teacher Tobacco Use Smoking Status Current every day smoker 01/16/25 11:24 Hx Tobacco Use Yes 01/16/25 11:24 Years Smoking Packs Smoked per Day 1 01/16/25 11:24 Smoking Cessation Date was within the last 15 years Hx Smoking Cessation Date Hx Smoking Cessation No 01/16/25 11:24 Counseling Hematologic Medial History Hematologic Hx - abe teacher: Hematologic Medical Hx - documentation writer Hx of Blood Transfusion No 01/16/25 11:24 Hx of Transfusion in last 3 No 01/16/25 11:24 Months Date of Last Transfusion (if within last 3 months) Ever experience any problems No 01/16/25 11:24 with transfusion(s)? Specify any problems Hx of Preganancy in last 3 N/A 01/16/25 11:24 Months Nurse Filling Out Transfusion NBUCHER 01/16/25 11:24 & Questions: Date: 01/16/25 01/16/25 11:24 Time: 11:26 01/16/25 11:24 Patient unable to answer at this time (ie. confused, unrespo /Reproduction History /Reproductive History - abe teacher: /Reproductive Hx- abe teacher Hx Now No 01/16/25 11:24 Gestational Age (in weeks): EDC: Hx Hx Para Hx Section SAB No 01/16/25 11:24 Active Medications Active Medications: Current Medications Generic Name Dose Route Start Last Admin Trade Name Freq PRN Reason Stop Dose Admin Cefazolin Sodium 2 gm/ Sodium 110 mls @ 200 mls/hr 01/29/25 13:00 Chloride IV 01/29/25 13:32 INTRAOP ONE Lactated Ringer's 1,000 mls @ 15 mls/hr 01/29/25 08:45 01/29/25 09:08 IV 15 mls/hr .Q48H THA Administration PFSH Medical History Loss of hearing Wears glasses Depression Anxiety Marijuana use High cholesterol Wears dentures Gastroparesis Smoker Bipolar disorder Carpal tunnel syndrome of right wrist Spinal stenosis Lumbar radiculopathy Type 2 diabetes mellitus Drug abuse IBS (irritable bowel syndrome) Tuberculosis Skin cancer Osteoarthritis H/O gastroesophageal reflux (GERD) Diabetes Breast lump Arthritis Anemia Chronic headaches Home Medications ?Medication ?Instructions ?Recorded ?Last Taken ?Type cholecalciferol (vitamin D3) 50 50 mcg PO DAILY 09/11/23 01/28/25 History mcg (2,000 unit) capsule clonazepam 1 mg tablet 1 mg PO 4X/DAY PRN anxiety 09/11/23 01/28/25 History flash glucose scanning reader 09/11/23 Unknown History (FreeStyle Emmanuel 14 Day [place]) lumateperone 21 mg capsule 21 mg PO DAILY 09/11/23 01/28/25 History (Caplyta) vortioxetine 20 mg tablet 20 mg PO QDAY 09/11/23 01/28/25 History (Trintellix) flash glucose sensor (FreeStyle #1 ea 11/16/23 Unknown Rx Emmanuel 2 Sensor kit) docusate sodium 100 mg capsule 100 mg PO BID #60 caps 01/19/24 01/27/25 Rx arm brace (Wrist Brace) #2 ea 01/24/24 Unknown Rx aripiprazole 5 mg tablet (Abilify) 5 mg PO DAILY 02/13/24 01/29/25 History iodoform 1/4 X 5 yard bandage #12 ea 02/13/24 Unknown Rx atorvastatin 10 mg tablet 10 mg PO DAILY HLD 03/16/24 01/28/25 History cetirizine 10 mg tablet 10 mg PO DAILY allergies 03/16/24 01/28/25 History estradiol 0.5 mg tablet 0.5 mg PO DAILY hormone 03/16/24 01/28/25 History hydroxyzine pamoate 25 mg capsule 25 mg PO TID depression 03/16/24 01/28/25 History ondansetron 4 mg disintegrating 4 mg PO Q8 nausea 03/16/24 Unknown History tablet pantoprazole 40 mg tablet,delayed 40 mg PO DAILY indegestion 03/16/24 01/29/25 History release pregabalin 150 mg capsule 150 mg PO TID pain 03/16/24 01/28/25 History biotin 10,000 mcg capsule 10,000 mcg PO DAILY 01/16/25 01/28/25 History dulaglutide 0.75 mg/0.5 mL 0.75 mg subcut HASSAN 01/16/25 01/19/25 History subcutaneous pen injector (Trulicity) duloxetine 20 mg capsule,delayed 20 mg PO DAILY 01/16/25 01/28/25 History release mirabegron 50 mg tablet,extended 50 mg PO DAILY 01/16/25 01/28/25 History release 24 hr (Myrbetriq) multivitamin (Daily Multi-Vitamin 1 tab PO DAILY 01/16/25 01/28/25 History tablet) zolpidem 10 mg tablet 10 mg PO QHS 01/16/25 01/28/25 History buspirone PO DAILY 01/29/25 01/28/25 History cephalexin 500 mg capsule 500 mg PO Q8H 7 days #21 caps 01/29/25 Unknown Rx diazepam PO .qid PRN anxiety 01/29/25 01/28/25 History oxycodone 5 mg tablet 5 mg PO Q12H PRN pain 5 days #10 01/29/25 Unknown Rx tabs Allergy/AdvReac Type Severity Reaction Status Date / Time No Known Allergies Allergy Verified 01/29/25 08:51 Surgical History Hx of lumbosacral spine surgery H/O: hysterectomy S/P cervical spinal fusion H/O adenoidectomy History of tonsillectomy Social History adopted: No household members: spouse number of children: 2 current occupational status: disabled pets and animals: Yes (3) pets and animals: cat(s) Smoking Status: Current every day smoker tobacco type: cigarettes Tobacco: How many years used: 45 quit status: has quit before alcohol intake: current alcohol intake frequency: a few times a month substance use type: marijuana and methamphetamine diet: other caffeine: Yes (5) Type: carbonated beverages frequency: does not exercise seatbelt use: always do you feel safe at home: Yes Review of Systems (Anesthesia) ROS Narrative System reviewed and no additional complaints, except as documented.
[2025-01-29] MEDS: Cefazolin 1 GM/5 ML Vial 2 GM IV (09:50)
[2025-01-29] MEDS: Lidocaine 1% (5 ml sdv) 5 ML Vial IV (09:52)
[2025-01-29] MEDS: fentaNYL 100 MCG/2 ML Ampul IV (10:18)
--- NOTE | 2025-01-29 11:29 | PCM.POST.ANE ---
Anesthesia: Postop Eval I Current Vital Signs Temperature: 97.8 F Pulse Rate: 95 Blood Pressure: 124/75 Respiratory Rate: 16 Pulse Ox: 97 Oxygen Delivery Method: Room Air Assessment Airway patent: Yes Spontaneous unlabored respirations: Yes Mental status: Awake and Calm nausea: No Vomiting: No Anesthesia Complication: No Fluid Hydration Crystalloid volume administer (ml): 800 Total IV fluid infused: 800 Progress Note Anesthesia document: Postop Eval 1 completed: Yes
--- NOTE | 2025-01-29 12:28 | PCM.OPRPT ---
Operative Report (Standard) Operative Information Date of Procedure: 01/29/25 Pre-Operative Diagnosis: Right carpal tunnel syndrome and right cubital tunnel syndrome Post-Operative Diagnosis: Same Surgery/Procedure Performed: 1) endoscopic right carpal tunnel release 2) right cubital tunnel release (in situ release) workday financials consultant: Yes Hat Brusher Machine: Danielle Diop Tasks completed by commercial lines assistant: Retracting Type of Anesthesia: General/Regional (Received a supraclavicular block from the anesthesia team postoperatively (please see their separate note), as well as general anesthesia during the procedure) RN Documented Start/Stop Times: Operation Date: 01/29/25 10:00 Case Time Into Pre-Op 01/29/25 08:29 Out of Pre-Op 01/29/25 09:40 Into Room 01/29/25 09:45 Anesthesia Start 01/29/25 10:11 Procedure Start 01/29/25 10:13 Procedure End 01/29/25 11:02 Anesthesia End 01/29/25 11:18 Out of Room 01/29/25 11:18 Into Recovery 01/29/25 11:21 Into Phase II Recovery 01/29/25 12:46 Out of Recovery 01/29/25 12:46 Out of Phase II 01/29/25 14:10 Procedure Start Time: 10:13 Procedure Stop Time: 11:02 Select all DRAINS/GRAFTS/IMPLANTS that apply: None Estimated Blood Loss: 20 cc Specimen collected: No Description of surgery: Indications: Caridad Koehler is a delightful 49-year-old female with symptomatic right cubital tunnel syndrome and symptomatic right carpal tunnel (CT) syndrome (NCS/EMG demonstrated [id number] cubital tunnel and mild CT syndrome). I talked her about the risks, benefits, and alternatives to carpal tunnel release and cubital tunnel release. She elected to proceed. Procedure details: Patient was marked in preoperative holding and taken back to the operating room where she was administered general anesthesia and prepped and draped in sterile fashion with a sterile tourniquet on the right upper arm. All proper timeouts were performed. The tourniquet was insufflated to 250 mmHg after the Esmarch was used. A 15 blade scalpel was used to make a transverse incision and an existing wrist crease. Careful dissection was taken down to the palmaris longus tendon and it was retracted radially. The antebrachial fascia was then incised carefully under direct visualization with loupe magnification, and tenotomy scissors were used to dissect above and below the antebrachial fascia making a longitudinal incision proximally under direct visualization so as to prevent injury to the nerve. The dilator was then placed under the antebrachial fascia and placed distally into the carpal tunnel. The synovial scraper was then used to gently tease any soft tissue attachments off of the underside of the transverse carpal ligament. The endoscope was then placed into the carpal tunnel and the transverse carpal ligament was directly visualized. Starting at the distal aspect of the transverse carpal ligament , the [employer] Shima scope was used to (under direct visualization) cut the transverse carpal ligament. Once complete release of the transverse carpal ligament was confirmed, the tourniquet was let down and hemostasis was obtained with bipolar electrocautery along the subcutaneous tissues beneath the incision. The wound was then closed with 4-0 nylon horizontal mattress sutures. Attention was then turned to the cubital tunnel release. The Esmarch and the tourniquet were again used and insufflated to 250 mmHg. An incision was then placed longitudinally over the interval between the medial epicondyle and the olecranon. Careful dissection was taken through the skin to protect the medial antebrachial cutaneous nerves, 1 branch seen 3.5 cm distal to the elbow (carefully protected). Dissection to the overlying fascia demonstrated the cubital tunnel, which was incised under direct loupe magnification/visualization with a combination of tenotomy scissors and a 15 blade scalpel. Kaye's fascia was released over the ulnar nerve and the ulnar nerve was identified. The ulnar nerve was carefully protected and the fascial attachments overlying the ulnar nerve were incised. Distally the in situ release was continued to the level of the FCU where the motor branch to the FCU was identified and protected. The fascia between the FCU muscle bodies was carefully incised with a 15 blade scalpel under direct visualization, as was any fascial bands from the FDS. Proximally dissection was carefully taken along the course of the ulnar nerve, releasing (under direct loupe visualization) any fascial adherences from the arcade of [place] and the intermuscular septum to approximately 9 cm proximal to the elbow. The elbow was then tested (flexion and extension) and there was no subluxation of the ulnar nerve, and therefore in situ release was determined to be sufficient. The tourniquet was let down and hemostasis was obtained with bipolar electrocautery. The wound was irrigated with copious alexa normal saline and a closure with 3-0 Monocryl deep dermal sutures followed by 3-0 Monocryl running subcuticular sutures and Prineo tape was carried out. Leonardo, Kerlix and Coban were applied loosely to the wrist and elbow for bulky dressings. Postoperative plan: Patient received supraclavicular block in the PACU, and an arm sling was given. She will follow-up in clinic in 2 days for a postop check. Surgical Findings: No subluxation of the ulnar nerve following in situ release Complications Complications: No
--- NOTE | 2025-01-29 13:01 | POSTOPAN2_ITS ---
Anesthesia Postop Eval I Sum Postop Eval Completion status Anesthesia document: Postop Eval 1 completed: Yes Anesthesia Postop Eval I Summary Anesthesia Postop Eval I Summary: Anesthesia Postop Eval I: Assessment Summary Airway patent Yes 01/29/25 11:29 JOURNEYMAN [email or web address] Spontaneous unlabored Yes 01/29/25 11:29 JOURNEYMAN PIPE [email or web address] respirations Mental status Awake,Calm 01/29/25 11:29 JOURNEYMAN PIPE [email or web address] nausea No 01/29/25 11:29 JOURNEYMAN PIPE FITTER.[email or web address] Vomiting No 01/29/25 11:29 JOURNEYMAN PIPE FITTER.[email or web address] Anesthesia Postop Eval I: Fluid Summary Crystalloid volume administer 800 01/29/25 11:29 JOURNEYMAN PIPE [email or web address] (ml) Colloids volume administered ( ml) Blood Product volume administered (ml) Total IV fluid infused 800 01/29/25 11:29 JOURNEYMAN PIPE FITTER.[email or web address] Anesthesia Postop Eval I: Summary Notes Anesthesia Complication No 01/29/25 11:29 JOURNEYMAN PIPE FITTER.[email or web address] Anesthesia Complication Comment: Post-operative progress note Anesthesia: Postop Eval II Evaluation Mental status: Awake Pain Level: 0 nausea: No Vomiting: No Complications Anesthesia Complication: No
--- NOTE | 2025-01-29 13:01 | PCM.POSTANE2 ---
Anesthesia Postop Eval I Sum Postop Eval Completion status Anesthesia document: Postop Eval 1 completed: Yes Anesthesia Postop Eval I Summary Anesthesia Postop Eval I Summary: Anesthesia Postop Eval I: Assessment Summary Airway patent Yes 01/29/25 11:29 [email or web address] Spontaneous unlabored Yes 01/29/25 11:29 [email or web address].[email or web address] respirations Mental status Awake,Calm 01/29/25 11:29 [email or web address].[email or web address] nausea No 01/29/25 11:29 [email or web address].[email or web address] Vomiting No 01/29/25 11:29 [email or web address].[email or web address] Anesthesia Postop Eval I: Fluid Summary Crystalloid volume administer 800 01/29/25 11:29 [email or web address] (ml) Colloids volume administered ( ml) Blood Product volume administered (ml) Total IV fluid infused 800 01/29/25 11:29 [email or web address].[email or web address] Anesthesia Postop Eval I: Summary Notes Anesthesia Complication No 01/29/25 11:29 [email or web address].[email or web address] Anesthesia Complication Comment: Post-operative progress note Anesthesia: Postop Eval II Evaluation Mental status: Awake Pain Level: 0 nausea: No Vomiting: No Complications Anesthesia Complication: No
== END 2025-01-29 14:10 | disposition home or self-care (01) ==
LOC: SDC 08:27 → AC 08:28
PROVIDERS: PCP Family Medicine; Referring Provider Surgery Plastic and Reconstructive Surgery; Visit Provider Surgery Plastic and Reconstructive Surgery
PROC: (CPT 64718; principal; 2025-01-29 09:45)
DX: G56.01 Carpal tunnel syndrome, right upper limb (principal); E11.43 Type 2 diabetes mellitus with diabetic autonomic (poly)neuropathy; E78.00 Pure hypercholesterolemia, unspecified; K31.84 Gastroparesis; K21.9 Gastro-esophageal reflux disease without esophagitis; F17.210 Nicotine dependence, cigarettes, uncomplicated; G56.21 Lesion of ulnar nerve, right upper limb; Z79.899 Other long term (current) drug therapy
CPT/HCPCS: 64718; 64721; 01810; 82962; 94640; J2405

== ENCOUNTER → 2025-05-05 | Outpatient (CLI) | payer MEDICAID, SELFPAY ==
--- NOTE | 2025-05-05 07:54 | NM_ITS ---
PROCEDURE: GASTRIC EMPTYING STUDY - 4 HR 05/05/2025 REASON FOR EXAM: NAUSEA WITH VOMITING, COMPARISON: None TECHNIQUE: Procedure Code: [id number] Modality: NM Procedure: GASTRIC EMPTYING STUDY - 4 HR The patient ingested a standard meal of cooked egg whites mixed with , toasted white bread, jelly, and water. There was no vomiting postprandially. Anterior and posterior planar images of the upper abdomen were obtained for 1 minute immediately following the meal at 1h, 2h and 4h if more than 10% of the activity persisted within the stomach. Regions of interest were drawn, and a geometric mean was used to calculate a [id number]. RADIOPHARMACEUTICAL: Technetium sulfur colloid DOSE 1.2mCi FINDINGS: Percent activity remaining in stomach: 1 hour 96 % (normal 37-90%) 2 hours: 66 % (normal 30-60%) ) 4 hours: 29 % (normal 0-10%) NM/Gastric Emptying Study - 4 HR IMPRESSION: Delayed gastric emptying. Reading Location: [place] [id number]
--- NOTE | 2025-05-05 11:00 | RAD_ITS ---
PROCEDURE: HIPS B/L MIN 2 VIEWS W/ PELVIS 05/05/2025 REASON FOR EXAM: GREATER TROCHANTERIC BURSUTUS TECHNIQUE: Procedure Code: [id number] Modality: DX Procedure: HIPS B/L MIN 2 VIEWS W/ PELVIS Frontal view of the pelvis with frontal and frog-leg views of the right and left hip COMPARISON: None FINDINGS: There is no fracture or dislocation identified. Hardware is noted in the lumbar spine. The SI joints are aligned. The sacral foramina appear intact. Mineralization is normal. There is no visible atherosclerosis. RAD/Hips B/L min 2 views w/ Pelvis IMPRESSION: No fracture or dislocation is identified. Reading Location: [facility]
== END | disposition home or self-care (01) ==
LOC: NM 07:49
PROVIDERS: PCP Family Medicine; Referring Provider Internal Medicine Gastroenterology; Visit Provider Internal Medicine Gastroenterology
DX: M70.62 Trochanteric bursitis, left hip (principal); E11.9 Type 2 diabetes mellitus without complications; M70.61 Trochanteric bursitis, right hip; R11.2 Nausea with vomiting, unspecified
CPT/HCPCS: 73521; 78264; A9541